=== PATIENT | male | born 1955 | race Caucasian/White ===

== ENCOUNTER 2018-12-28 17:50 | Observation (INO) ==
[2018-12-28 18:04] VITALS: BMI 31.6
--- NOTE | 2018-12-28 18:25 | CT ---
STUDY: CT HEAD WITHOUT CONTRAST HISTORY: Dizziness. Syncope. COMPARISON: None. TECHNIQUE: Multiple axial images of the head were obtained from the skull base to the vertex without administration of IV contrast. Automated exposure control (AEC) was utilized to adjust the MA and/or kV. Findings: The sulci, cisterns and ventricles are prominent consistent with diffuse volume loss. There are scattered foci of low attenuation in the periventricular and subcortical white matter of both hemispheres. This is a nonspecific finding which likely represents microangiopathic change in a patient of this age. There is no evidence of acute territorial infarction, hemorrhage, mass, mass effect or midline shift. There are no abnormal extra-axial fluid collections. There is no evidence of acute osseous abnormality or significant soft tissue swelling. There is right-sided aphakia. There has been a scleral banding procedure on the right. IMPRESSION: 1. No evidence of acute intracranial abnormality. 2. Nonspecific white matter change and volume loss as described. 3. If there is strong clinical concern for acute infarction, then an MRI examination of the brain could be performed for further evaluation. However, if there are no deficits on neurologic exam, there are no abnormalities identified on this study which require immediate imaging follow-up on an emergent basis. Follow-up MRI could be considered on an outpatient basis as clinically warranted. Reported By:
[2018-12-28 18:29] LABS: BASOPHILS % (AUTO) 0.6 % (0.2-1.0); EOSINOPHILS # (AUTO) 0.2 x10^3/uL (0.0-0.2); HEMATOCRIT 40.9 % (42.0-54.0); HEMOGLOBIN 14.2 g/dL (13.5-18.0); LYMPHOCYTES # (AUTO) 1.6 X10^3/uL (1.3-2.9); LYMPHOCYTES % (AUTO) 23.7 % (21.0-51.0); MEAN CORPUSCULAR HEMOGLOBIN 32.5 pg (27.0-34.0); MEAN CORPUSCULAR HGB CONC 34.7 g/dL (33.0-35.0); MEAN CORPUSCULAR VOLUME 93.4 fL (80.0-100.0); MEAN PLATELET VOLUME 8.3 fL (7.4-11.0); MONOCYTES # (AUTO) 0.6 x10^3/uL (0.3-0.8); MONOCYTES % (AUTO) 8.6 % (0.0-13.0); NEUTROPHILS # (AUTO) 4.4 x10^3/uL (2.2-4.8); NEUTROPHILS % (AUTO) 64.1 % (42.0-75.0); PLATELET COUNT 172 X10^3/uL (150.0-450.0); RED BLOOD COUNT 4.37 X10^6/uL (4.7-6.0); RED CELL DISTRIBUTION WIDTH 13.7 % (11.6-16.5); WHITE BLOOD COUNT 6.9 X10^3/uL (3.6-10.0)
--- NOTE | 2018-12-28 18:32 | DR.DIZZY ---
HPI Time seen Time Seen by Provider: 12/28/18 18:31 HPI Comment HPI Comment: PATIENT IS 63YR OLD MALE IN ED WITH DIZZINESS, VERTIGO AND NEAR SYNCOPAL FEELING THAT STARTED SUDDENLY AT HOME. PATIENT FELT SURROUNDING SPINNING AND FELT NAUSEATED. SYMPTOM WORDE WITH MOVEMENT. RELATIVES MOVE HIM TO THE CAR TO COME TO HOSPITAL. HE FELT HE WILL FALL IF HE TRY TO WALK. PATIENT DENIES FEVER, EAR OR SINUS SYMPTOMS. BP NOTED TO BE ELEVATED IN ED. SLIGH HEADACHE REPORTED. PATIENT IS DIAPHORETIC ON PRESENTATION TO ED. Complaint Chief Complaint Doctor Comments: DIZZY, BLACKED OUT AND ALMOST PASSING OUT. Chief Complaint:: PT C/O FEELING DIZZY AND ALMOST PASSING OUT PT STATES HE WAS LEANING BACK INTO HIS CHAIR AND HE BLACKED OUT. NOTED PT TO BE VERY DIAPHORETIC. Nurses Notes Reviewed Nurses Notes Review: Yes Source History Provided: Patient Mode of Arrival Mode of Arrival: Wheelchair Timing Onset of Chief Complaint: 12/28/18 Came on: Suddenly Duration Duration: Constant Duration: Hours Location of Weakness Weakness Location: Generalized Context Onset: At rest History of: None Stroke Symptoms: Ataxia and Dizziness Severity Severity: Abnormal activity level Modifying factors Worsens: Change in Position and Turning Head Associated signs and symptoms Associated Signs and Symptoms: Faintness, Near Syncope, Vertigo, Imbalance, Weak, Headache and Nausea; denies Tinnitus, Difficult Speech, Change of Vision, Fever and Vomiting PMH PMH Past Medical History: Yes Past Medical History: Coronary Artery Disease, Dyslipidemia and Hypertension Past Surgical History: Yes Family History History of Family Medical Conditions: No Social History Does any household member use tobacco: No Alcohol Use: None Do you use any recreational Drugs:: No Lives With: Family Lives Where: Home infectious screening In the last 2 months have you had wt loss of >10#?: NO Have you had fever, night sweats or hemotysis?: No Have you traveled outside the country in the last 6 months?: No Isolation: Standard ROS Review of Systems Constitutional: Diaphoresis, Weakness and Fatigue; negative Chills and Fever Eyes: Blurred Vision; negative Eye Pain, Tearing and Discharge ENTM: negative Ear Pain, Ear Discharge, Hearing Loss, Nose Pain, Nose Discharge, Epistaxis, Nose Congestion and Throat Pain Respiratoy: No Symptoms Reported and Short of Breath; negative Productive Cough, Wheezing and Hemoptysis Cardiovascular: Syncope; negative Chest Pain and Edema Gastrointestinal/Abdominal: Nausea; negative Abdominal Pain, Constipation, Diarrhea and Vomiting Genitourinary: No Symptoms Reported; negative Dysuria, Frequency and Hematuria Neurological: Headache, Weakness and Dizziness; negative Seizure Musculoskeletal: No Symptoms Reported; negative Back Pain, Joint Pain, Muscle Pain and Neck Pain Integumentary: No Symptoms Reported; negative Change in Color, Rash, Bruises and Juandice Hematologic/Lymphatic: No Symptoms Reported; negative Anemia, Easy Bleeding, Easy Bruising, Swollen Glands and Lymphadenopathy Endocrine: negative Flushing, Increased Thirst, Increased Urine and Decreased Appetite Psychiatric: No Symptoms Reported All Other Systems: Reviewed and Negative PE Vital Signs Vitals: Temperature 97.6 F Pulse Rate [Apical] 52 Pulse Rate 61 Respiratory Rate 23 Blood Pressure [Right Arm] 129/66 Blood Pressure [Left Arm] 168/92 Blood Pressure 154/72 O2 Sat by Pulse Oximetry 96 General Limitations: No Limitations General Appearance: Alert and In No Apparent Distress; negative In Distress Head Head Exam: Normal Inspection, Atraumatic and Normocephalic Eyes Eye exam: PERRL and EOMI; negative Scleral Icterus, Conjunctival Injection, Nystagmus, Periorbital Swelling and Periorbital Tenderness Pupils: Regular, Round: Bilateral and Reactive: Bilateral Sclera/Conjunctival: Normal Inspection: Bilateral ENT ENT Exam: Normal Exam, Normal Oropharynx, Normal External Ear Exam, Mucous Membranes Moist and TM's Normal Bilaterally Neck Neck Exam: Normal Inspection, Full ROM and Trachea Midline; negative Tenderness, Meningismus, Lymphadenopathy and Thyromegaly Chest Chest Inspection: Normal Inspection and Symmetric Chest Wall Rise; negative Tenderness and Rash Respiratory Respiratory Exam: Normal Lung Sounds Bilat; negative Accessory Muscle Use, Chest Wall Tenderness and Respiratory Distress Respiratory Exam: Bilateral: Rhonchi and Lower: Rhonchi Cardiovascular Cardiovascular Exam: Regular Rate and Normal Rhythm; negative Systolic Murmur, Diastolic Murmur, Rubs and Gallop Abdominal Exam Abdominal Exam: Normal Inspection, Normal Bowel Sounds and Soft; negative Tenderness, Organomegaly and Mass Rectal Rectal Exam: Deferred Extremeties Extremities Exam: Normal Inspection and Normal Capillary Refill; negative Tenderness, Edema, Joint Swelling and Calf Tenderness Back Back Exam: Normal Inspection; negative Tenderness, Muscle Spasm, Paraspinal Tenderness, Vertebral Tenderness and Rashes Neurologic Neurological Exam: Alert, Oriented X3 and CN II-XII Intact; negative Motor Sensory Deficit Patient Oriented To: Person, Place and Time Speech: Fluid Speech Cranial Nerve Exam: EOM Function (II, III, IV, ): Normal, Facial Sensation (V): Normal, Facial Palsy (VII): Normal, Gag reflex (XI): Normal, Spinal Accessory Function (XI): Normal and Tongue Deviation: Normal Cerebellar Function: negative Other (NOT TESTED AT THIS TIME.) Motor Strength - LUE: 5/5 Motor Strength - RUE: 5/5 Motor Strength - LLE: 5/5 Motor Strength - RLE: 5/5 Upper Motor Neuron Exam: Babinski Sign: Normal DTR: brachioradialis (L): 2+, brachioradialis (R): 2+, Patellar (L): 2+ and patellar (R): 2+ Psychiatric Psychiatric Exam: Normal Affect and Anxious Skin Skin Exam: Warm, Dry, Intact and Normal Color MDM Additional Information Obtained Additional Information Obtained From: Old Records and Family Differential Diagnosis Differential Diagnosis: Anemia, CVA, Dehydration, Dysrhythmia, Electrolyte disorder, Hypoglycemia, Labyrinthitis, Myocardial infarction, Pulmonary embolus, TIA, VBI and Central Vertigo COURSE Treatment Treatment: SEE ORDERS. Consultation Consultation Comments: DISCUSS PATIENT ILL WITH DR. MACIAS. HE WILL ADMIT PATIENT. PRELIMINARY ADMIT ORDERS DISCUSS AND HAVE DONE THE ORDERS. Education/Counseling Education/Counseling: Patient and Family Educated On: Diagnosis ROR Labs Reviewed Laboratory Results Reviewed?: Yes Result Diagrams: 12/29/18 05:37 12/29/18 05:37 Laboratory: WBC 5.4 X10^3/uL (3.6-10.0) 12/29/18 05:37 RBC 4.28 X10^6/uL (4.7-6.0) L 12/29/18 05:37 Hgb 13.9 g/dL (13.5-18.0) 12/29/18 05:37 Hct 40.2 % (42.0-54.0) L 12/29/18 05:37 MCV 93.8 fL (80.0-100.0) 12/29/18 05:37 MCH 32.6 pg (27.0-34.0) 12/29/18 05:37 MCHC 34.7 g/dL (33.0-35.0) 12/29/18 05:37 RDW 13.7 % (11.6-16.5) 12/29/18 05:37 Plt Count 165 X10^3/uL (150.0-450.0) 12/29/18 05:37 MPV 8.6 fL (7.4-11.0) 12/29/18 05:37 Neut % (Auto) 61.4 % (42.0-75.0) 12/29/18 05:37 Lymph % (Auto) 24.4 % (21.0-51.0) 12/29/18 05:37 Blair % (Auto) 10.7 % (0.0-13.0) 12/29/18 05:37 Eos % (Auto) 3.1 % (0.9-2.9) H 12/29/18 05:37 Baso % (Auto) 0.4 % (0.2-1.0) 12/29/18 05:37 Neut # (Auto) 3.3 x10^3/uL (2.2-4.8) 12/29/18 05:37 Lymph # (Auto) 1.3 X10^3/uL (1.3-2.9) 12/29/18 05:37 Blair # (Auto) 0.6 x10^3/uL (0.3-0.8) 12/29/18 05:37 Eos # (Auto) 0.2 x10^3/uL (0.0-0.2) 12/29/18 05:37 Baso # (Auto) 0.0 X10^3/uL (0.0-0.1) 12/29/18 05:37 Absolute Nucleated RBC 0.0 /100WBC 12/29/18 05:37 INR Target Range - 12/28/18 18:00 INR 0.98 (0.8-1.3) 12/28/18 18:00 APTT 30.6 SECONDS (22.9-36.5) 12/28/18 18:00 PTT Comment - 12/28/18 18:00 Sodium 141 mmol/L (136-145) 12/29/18 05:37 Corrected Sodium TNP 12/29/18 05:37 Potassium 3.6 mmol/L (3.5-5.1) 12/29/18 05:37 Chloride 106 mmol/L (98-107) 12/29/18 05:37 Carbon Dioxide 28.5 mmol/L (21-32) 12/29/18 05:37 BUN 11 mg/dL (7-18) 12/29/18 05:37 Creatinine 0.88 mg/dL (0.70-1.30) 12/29/18 05:37 Est GFR (MDRD) Af Amer > 60 (>60) 12/29/18 05:37 Est GFR (MDRD) Non-Af > 60 (>60) 12/29/18 05:37 Glucose 102 mg/dL (65-99) H 12/29/18 05:37 Calcium 8.7 mg/dL (8.5-10.1) 12/29/18 05:37 Corrected Calcium TNP 12/29/18 05:37 Magnesium 1.8 mg/dL (1.7-2.9) 12/29/18 05:37 Total Bilirubin 0.70 mg/dL (0.2-1.0) 12/29/18 05:37 AST 23 Units/L (15-37) 12/29/18 05:37 ALT 48 Units/L (12-78) 12/29/18 05:37 Alkaline Phosphatase 48 Units/L (46-116) 12/29/18 05:37 Creatine Kinase 142 Units/L (39-308) 12/28/18 18:00 CK-MB (CK-2) 4.3 ng/mL (0-4.0) H* 12/28/18 18:00 CK/CKMB % Calc 3.0 % (<4) 12/28/18 18:00 Troponin I < 0.02 ng/mL (0-1.5) 12/28/18 18:00 Total Protein 6.1 g/dL (6.4-8.2) L 12/29/18 05:37 Albumin 3.4 g/dL (3.4-5.0) 12/29/18 05:37 Globulin 2.7 g/dL (2.5-4.5) 12/29/18 05:37 Albumin/Globulin Ratio 1.3 Ratio (1.1-2.1) 12/29/18 05:37 Triglycerides 159 mg/dL (0-150) H 12/29/18 05:37 Cholesterol 121 mg/dL (0-200) 12/29/18 05:37 LDL Cholesterol, Calc 58 mg/dL (0-100) 12/29/18 05:37 HDL Cholesterol 31 mg/dL (40-60) L 12/29/18 05:37 Cholesterol/HDL Ratio 3.9 (0.0-5.0) 12/29/18 05:37 Specimen Type Random urine 12/29/18 07:56 Urine Color Yellow (YELLOW) 12/29/18 07:56 Urine Appearance Clear (CLEAR) 12/29/18 07:56 Urine pH 5.0 (5.0 - 8.0) 12/29/18 07:56 Ur Specific [place] 1.020 (1.000-1.030) 12/29/18 07:56 Urine Protein Negative (NEGATIVE) 12/29/18 07:56 Urine Glucose (UA) Negative (NEGATIVE) 12/29/18 07:56 Urine Ketones Negative (NEGATIVE) 12/29/18 07:56 Urine Occult Blood 1+ (NEGATIVE) 12/29/18 07:56 Urine Nitrite Negative (NEGATIVE) 12/29/18 07:56 Urine Bilirubin Negative (NEGATIVE) 12/29/18 07:56 Urine Urobilinogen Normal (NORMAL) 12/29/18 07:56 Ur Leukocyte Esterase Negative (NEGATIVE) 12/29/18 07:56 Urine RBC 0-2 /HPF (NONE SEEN) 12/29/18 07:56 Urine WBC 0-2 /HPF (NONE SEEN) 12/29/18 07:56 Ur Squamous Epith Cells Rare /HPF (NEGATIVE) 12/29/18 07:56 Urine Bacteria Negative /HPF (NEGATIVE) 12/29/18 07:56 Ur Culture Indicated? No/not indicated 12/29/18 07:56 XRAY XRAY Interpreted by: Radiologist XRAY Findings: REPORT ON RECORD NOTED. EKG Rate: 63 Mckenney: Normal Rhythm: NSR Block: None Hypertrophy: LVH ST: Normal Diagnosis Discharge Problem: Uncontrolled hypertension, Vertigo Instructions Instructions: Fall Prevention in the Home, Adult, Pqws-ic-Baya Stroke Prevention Vertigo, Ltod-[id number] Warning Signs of a Stroke Hypertension, [id number] Dizziness, [id number]-[id number] Managing Your Hypertension Forms: Patient Portal
[2018-12-28 18:43] LABS: BLOOD UREA NITROGEN 13 mg/dL (7-18); CALCIUM 9.1 mg/dL (8.5-10.1); CARBON DIOXIDE 25.6 mmol/L (21-32); CHLORIDE 105 mmol/L (98-107); COR NA(FOR HYPERGLY) 140 mmol/L (136-145); CREATININE 0.91 mg/dL (0.70-1.30); SODIUM 140 mmol/L (136-145); TROPONIN I < 0.02 ng/mL (0-1.5); eGFR NON BLACK RACES > 60 (>60)
[2018-12-28] MEDS ORDERED: CATAPRES TAB 0.2 MG PO ONE (18:57)
[2018-12-28] MEDS ORDERED: ANTIVERT TAB 25 MG PO ONE (18:59)
[2018-12-28 19:06] LABS: ALANINE AMINOTRANSFERASE 55 Units/L (12-78); ALBUMIN 3.9 g/dL (3.4-5.0); ALKALINE PHOSPHATASE 54 Units/L (46-116); ASPARTATE AMINO TRANSFERASE 26 Units/L (15-37); CREATINE KINASE 142 Units/L (39-308)
[2018-12-28 19:07] LABS: CREATINE KINASE MB 4.3 ng/mL (0-4.0)
[2018-12-28] MEDS ORDERED: ANTIVERT TAB 25 MG ONE (19:33)
[2018-12-28] MEDS ORDERED: AMBIEN PO PRN (22:19)
[2018-12-28] MEDS: ULTRAM PO PRN (23:03)
[2018-12-29] MEDS: ULTRAM PO PRN (04:16)
[2018-12-29 06:25] LABS: BASOPHILS % (AUTO) 0.4 % (0.2-1.0); EOSINOPHILS # (AUTO) 0.2 x10^3/uL (0.0-0.2); EOSINOPHILS % (AUTO) 3.1 % (0.9-2.9); HEMATOCRIT 40.2 % (42.0-54.0); HEMOGLOBIN 13.9 g/dL (13.5-18.0); LYMPHOCYTES # (AUTO) 1.3 X10^3/uL (1.3-2.9); LYMPHOCYTES % (AUTO) 24.4 % (21.0-51.0); MEAN CORPUSCULAR HEMOGLOBIN 32.6 pg (27.0-34.0); MEAN CORPUSCULAR HGB CONC 34.7 g/dL (33.0-35.0); MEAN CORPUSCULAR VOLUME 93.8 fL (80.0-100.0); MEAN PLATELET VOLUME 8.6 fL (7.4-11.0); MONOCYTES # (AUTO) 0.6 x10^3/uL (0.3-0.8); MONOCYTES % (AUTO) 10.7 % (0.0-13.0); NEUTROPHILS # (AUTO) 3.3 x10^3/uL (2.2-4.8); NEUTROPHILS % (AUTO) 61.4 % (42.0-75.0); PLATELET COUNT 165 X10^3/uL (150.0-450.0); RED BLOOD COUNT 4.28 X10^6/uL (4.7-6.0); RED CELL DISTRIBUTION WIDTH 13.7 % (11.6-16.5); WHITE BLOOD COUNT 5.4 X10^3/uL (3.6-10.0)
[2018-12-29 06:55] LABS: ALANINE AMINOTRANSFERASE 48 Units/L (12-78); ALBUMIN 3.4 g/dL (3.4-5.0); ALKALINE PHOSPHATASE 48 Units/L (46-116); ASPARTATE AMINO TRANSFERASE 23 Units/L (15-37); BLOOD UREA NITROGEN 11 mg/dL (7-18); CALCIUM 8.7 mg/dL (8.5-10.1); CARBON DIOXIDE 28.5 mmol/L (21-32); CHLORIDE 106 mmol/L (98-107); CHOL/HDL RATIO 3.9 (0.0-5.0); CHOLESTEROL 121 mg/dL (0-200); CREATININE 0.88 mg/dL (0.70-1.30); HDL CHOLESTEROL 31 mg/dL (40-60); SODIUM 141 mmol/L (136-145); TOTAL PROTEIN 6.1 g/dL (6.4-8.2); TRIGLYCERIDES 159 mg/dL (0-150); eGFR NON BLACK RACES > 60 (>60)
[2018-12-29 08:10] LABS: BILIRUBIN,URINE NEGATIVE (NEGATIVE); BLOOD/HEMOGLOBIN,URINE 1+ (NEGATIVE); GLUCOSE, URINE NEGATIVE (NEGATIVE); KETONES,URINE NEGATIVE (NEGATIVE); LEUKOCYTE ESTERASE ,URINE NEGATIVE (NEGATIVE); NITRITES,URINE NEGATIVE (NEGATIVE); PROTEIN,URINE NEGATIVE (NEGATIVE); UROBILINOGEN,URINE NORMAL (NORMAL)
[2018-12-29 08:21] LABS: APPEARANCE,URINE CLEAR (CLEAR); COLOR,URINE YELLOW (YELLOW); RBC,URINE 0-2 /HPF (NONE SEEN)
[2018-12-29 08:22] LABS: BACTERIA,URINE NEGATIVE /HPF (NEGATIVE); SQUAMOUS EPITHELIAL CELL,UR RARE /HPF (NEGATIVE)
[2018-12-29] MEDS ORDERED: APRESOLINE TAB 25 MG PO SCH (10:00)
[2018-12-29] MEDS ORDERED: PriLOSEC PO SCH (10:00)
[2018-12-29] MEDS ORDERED: ZyrTEC TAB 10 MG PO SCH (10:00)
[2018-12-29] MEDS ORDERED: HYDROCHLOROTHIAZIDE 25 MG TAB PO SCH (10:00)
[2018-12-29] MEDS: ZESTRIL TAB 40 MG PO SCH ×2 (10:43→13:22)
[2018-12-29] MEDS ORDERED: ASPIRIN EC 81 MG PO SCH (11:00)
--- NOTE | 2018-12-29 13:17 | MRI ---
MRI BRAIN WITHOUT AND WITH CONTRAST CLINICAL HISTORY: 63-year-old male with vertigo and uncontrolled hypertension with headache, blurred vision and dizziness. COMPARISON: CT head 12/28/2018. TECHNIQUE: Multiplanar, multisequence MR images of the brain were obtained prior to and following the uneventful intravenous administration of 20 mL MultiHance. FINDINGS: There is no evidence of diffusion restriction. The craniocervical junction is normal. Pituitary and optic nerve complex are normal. Few punctate T2 FLAIR signal hyperintensities are present within the subcortical, juxtacortical, periventricular and supraventricular white matter that are nonspecific in appearance but most likely to represent microvascular white matter ischemic changes. Normal signal characteristics and morphology are demonstrated within the cerebral cortex, corpus callosum, deep chanel nuclei, brainstem and cerebellum. The major vascular channels opacify normally and the major vascular flow voids, to include the dural venous sinuses, are intact. No abnormal susceptibility on gradient imaging. Age advanced cortical volume loss is present, with commensurate sulcal and ventricular prominence. The basilar cisterns are normal. There is no evidence of abnormal intracranial enhancement. Right scleral band and aphakic right globe. The orbits and globes are otherwise within normal limits. Complete proteinaceous opacification of the left maxillary sinus with medial calcified secretions. Mucosal inflammation of the left maxillary sinus and scattered throughout the ethmoid labyrinth, left greater than right with the remaining paranasal sinuses, mastoid air cells and tympanic cavities clear. IMPRESSION: 1. No acute ischemic or hemorrhagic insult. 2. No abnormal intracranial enhancement. 3. Mild, chronic microvascular white matter ischemic disease with associated volume loss. 4. Chronic left maxillary sinusitis as described, recommend outpatient evaluation by Otolaryngology. Reported By:
[2018-12-29] MEDS ORDERED: K-DUR TAB 20 MEQ PO PRN (13:23)
[2018-12-29] MEDS ORDERED: POTASSIUM CHL 60 MEQ/NS 0.45% 500 ML IV PRN (13:23)
[2018-12-29] MEDS ORDERED: POTASSIUM CHL 40 MEQ/NS 0.45% 500 ML IV PRN (13:23)
[2018-12-29] MEDS ORDERED: POTASSIUM CHLORIDE LIQ 20 MEQ UDC PO PRN (13:23)
[2018-12-29] MEDS ORDERED: KLOR-CON PO PRN (13:23)
[2018-12-29] MEDS ORDERED: K-RIDER 10 MEQ/NS 100 ML 10 MEQ/100 ML BAG IV PRN (13:23)
[2018-12-29] MEDS ORDERED: MICRO K EXTEN CAP 10 MEQ PO PRN (13:23)
[2018-12-29 14:32] VITALS: BP 154/72
[2018-12-29] MEDS ORDERED: ZOCOR TAB 20 MG PO SCH (21:00)
[2018-12-29] MEDS ORDERED: TOPROL XL PO SCH (21:00)
--- NOTE | 2019-01-14 10:17 | DR.CARTERS ---
Short Stay Summary - Admission Date Date of Admission: 12/28/18 - Discharge Date Discharge Date: 12/29/18 - Admission Diagnoses (1) Uncontrolled hypertension Status: Acute (2) Vertigo Status: Acute - Hospital Course Hospital Course: IS A 63 YEAR OLD PATIENT OF OURS WHO PRESENTED TO THE ER WITH COMPLAINTS OF DIZZINESS AND NEAR SYNCOPE. HE REPORTED THAT SYMPTOMS STARTED EARLY IN THE MORNING. HE ALSO REPORTED SEVERE WEAKNESS WHEN AMBULATING AND HEADACHE. HE WAS NOTED TO BE DIAPHORETIC ON PRESENTATION TO THE ER. ON ARRIVAL, VITALS WERE 98.0-63-20-98%-221/99. LABS WERE OBTAINED. ABNORMAL LAB VALUES INCLUDED THE FOLLOWING: RBC 4.37, HCT 40.9, GLUCOSE 111, CK-MB 4.3. EKG REVEALED: SINUS RHYTHM WITH HR 63. A BRAIN CT WAS OBTAINED AND REVEALED: No evidence of acute intracranial abnormality. Nonspecific white matter change and volume loss as described. If there is strong clinical concern for acute infarction, then an MRI examination of the brain could be performed for further evaluation. However, if there are no deficits on neurologic exam, there are no abnormalities identified on this study which require immediate imaging follow-up on an emergent basis. HE WAS GIVEN ANTIVERT 25MG PO X 1 AND CLONIDINE 0.2MG PO X 1 IN THE ER. HIS BLOOD PRESSURE WAS NOTED TO DECREASE TO 174/85. HE WAS ADMITTED FOR FURTHER EVALUATION AND TREATMENT OF VERTIGO AND UNCONTROLLED HYPERTENSION. WE PLANNED TO FOLLOW UP WITH AM LABS AND BRAIN MRI. ON THE MORNING FOLLOWING ADMISSION, PATIENT REPORTS SLIGHT IMPROVEMENT IN SYMPTOMS. HE REPORTS THAT HE STILL HAS SOME DIZZINESS AT TIMES. HIS HEARTRATE WAS NOTED TO FALL INTO THE 40S AT TIMES DURING THE NIGHT. ON EXAMINATION, HEART IS REGULAR IN RATE AND RHYTHM. BILATERAL LUNGS ARE NOTED WITH DIMINISHED LUNG SOUNDS THROUGHOUT. ABDOMEN IS ROUND, SOFT, AND NON-TENDER WITH NORMAL BOWEL SOUNDS NOTED IN ALL QUADRANTS. HE IS HEMODYNAMICALLY STABLE. WE OBTAINED A BRAIN MRI. IT REVEALED: No acute ischemic or hemorrhagic insult. No abnormal intracranial enhancement. Mild, chronic microvascular white matter ischemic disease with associated volume loss. Chronic left maxillary sinusitis as described, recommend outpatient evaluation by Otolaryngology. WE PLANNED FOR DISCHARGE. INSTRUCTIONS FOR MEDICATIONS AND FOLLOW-UP WERE DISCUSSED WITH PATIENT AND FAMILY. WE INSTRUCTED PATIENT TO STOP TAKING THE METOPROLOL UNTIL HIS FOLLOW-UP VISIT. HE WAS GIVEN NEW PRESCRIPTIONS FOR MECLIZINE 25MG PO BID AND A MEDROL DOSE PACK. HE IS INSTRUCTED TO FOLLOW UP IN THE OFFICE ON 01/04/19. HE WAS DISCHARGED HOME WITH FAMILY IN STABLE CONDITION. - Discharge Medications Discharge Medications: Home Medication List hydralazine 50 mg PO BID 12/28/18 [History] hydrochlorothiazide 25 mg PO DAILY 12/28/18 [History] omeprazole 40 mg PO DAILY 12/28/18 [History] meclizine 25 mg PO BID PRN #60 tab 12/29/18 [Rx] methylprednisolone [Medrol (Jase)] See Rx Instructions .ROUTE .COMPLEX #1 ea 12/29/18 [Rx] Prescriptions: meclizine Duane Valenzuela methylprednisolone [Medrol (Jase)] Duane Valenzuela - Discharge Plan Disposition: HOME, SELF-CARE Condition: Stable Prescriptions: meclizine 25 mg PO BID PRN #60 tab PRN Reason: methylprednisolone [Medrol (Jase)] See Rx Instructions .ROUTE .COMPLEX #1 ea - Follow up/Referrals Follow up/Referrals: Duane Valenzuela [Primary Care Provider] - 01/04/19 1:30 pm - Instructions Instructions: Fall Prevention in the Home, Adult, [id number], Stroke Preve ntion, Vertigo, [id number], Warning Signs of a Stroke, Hypertension, [id number]-[id number], Dizziness, Ophk-[id number], Managing Your Hypertension Additional Instructions: DIET TOLERATED. ACTIVITY TOLERATED. HOLD METOPROLOL UNTIL FOLLOW-UP VISIT Forms: Patient Portal
== END 2018-12-29 14:50 | disposition home or self-care (01) ==
LOC: ER 17:52 → ICU 17:52
PROVIDERS: ADMIT Internal Medicine; ATTEND Internal Medicine
DX: E78.2 Mixed hyperlipidemia; R55 Syncope and collapse; I10 Essential (primary) hypertension; Z79.01 Long term (current) use of anticoagulants; R42 Dizziness and giddiness; Z79.899 Other long term (current) drug therapy; R51 Headache; R94.31 Abnormal electrocardiogram [ECG] [EKG]; I25.10 Atherosclerotic heart disease of native coronary artery without angina pectoris; J32.0 Chronic maxillary sinusitis; R53.1 Weakness
CPT/HCPCS: 36415; 70450; 70553; 80053; 80061; 81001; 82550; 82553; 83735; 84484; 85025; 85610; 85730; 93005; 96365; 99284; A4222; G0378

== ENCOUNTER 2020-08-26 11:21 | Inpatient (IN) ==
[2020-08-26 11:32] VITALS: BMI 31.0
--- NOTE | 2020-08-26 11:46 | DR.SOBA ---
HPI Time Seen Time Seen by Provider: 08/26/20 11:32 Primary Care Physician Primary Care Physician: COLLEEN HPI Comment HPI Comment: PATIENT IS 65YR OLD MALE IS IN ER WITH INCREASING SOB, GENERALIZED WEAKNESS, COUGH AND OXYGEN SATURATION 84% IN ER. PATIENT IS COVID 19 POSITIVE. HIS ILLNESS STARTED ONE WEEK AGO AND IS GETTING WORSE. DENIES FEVER. HAVING PLEURITIC CHEST PAIN. Complaints Chief Complaint Doctors Comments: INCREASING SOB, COUGH. OXYGEN SATURATION 84% IN ER AND COVID 19 VIRUS POSITIVE. Chief Complaint:: PT C/O BEING COVID POSITIVE WITH SYMPTOMS OF SEVERE COUGH, SHORTNESS OF BREATH, AND WEAKNESS. NOTED PT TO BE EXTREMELY SHORT OF BREATH UPON AMBULATING TO TRIAGE ROOM. SPO2 NOTED TO BE 84% ON R/A COVID-19 Coronavirus risk:travel/contact w/high risk person: Yes Has patient experienced Coronavirus symptoms: Yes Coronavirus symptoms experienced: Coughing and Shortness of Breath Reviewed Nurses Notes Reviewed: Yes Source History Provided: Patient Mode of Arrival Mode of Arrival: Ambulatory Timing Onset of Chief Complaint: 08/19/20 Duration Duration: Days Context Onset:: At Rest PE Risk Factors:: None History of:: CHF Currently on:: Inhaled Bronchodilators Prehospital Care:: None Modifying Factors Worsens:: Exertion and Lying Flat Improves:: Rest and Sitting Up Associated Signs and Symptoms Associated Signs and Symptoms: Wheeze, Cough and Chest Pain If Chest Pain Quality: Pleuritic Location: Substernal If Cough Cough: Productive and Yellow PMH PMH Past Medical History: Yes Past Medical History: Coronary Artery Disease, Dyslipidemia and Hypertension Past Surgical History: Yes Surgical History: Cholecystectomy Past Surgical History Comment: COLON , EYE, BLADDER, ANKLE Family History History of Family Medical Conditions: Yes Family Medical History: Sudden Cardiac Social History Does any household member use tobacco: No Alcohol Use: None Do you use any recreational Drugs:: No Lives With: Family Lives Where: Home Travel Risk Coronavirus risk:travel/contact w/high risk person: Yes Has patient experienced Coronavirus symptoms: Yes Coronavirus symptoms experienced: Coughing and Shortness of Breath Infectious screening In the last 2 months have you had wt loss of >10#?: NO Have you had fever, night sweats or hemotysis?: No Have you traveled outside the country in the last 6 months?: No Isolation: Droplet ROS Review of Systems Constitutional: See HPI, Weakness and Fatigue; negative Fever Eyes: No Symptoms Reported and See HPI ENTM: See HPI and Nose Congestion; negative Nose Discharge Respiratoy: See HPI, Productive Cough, Short of Breath and Wheezing Cardiovascular: See HPI and Chest Pain (PLEURITIC CP); negative Edema and Palpitations Gastrointestinal/Abdominal: No Symptoms Reported and See HPI; negative Abdominal Pain, Diarrhea and Vomiting Genitourinary: No Symptoms Reported and See HPI; negative Dysuria, Frequency and Hematuria Neurological: See HPI and Weakness; negative Headache and Dizziness Musculoskeletal: See HPI and Muscle Pain; negative Back Pain Integumentary: No Symptoms Reported and See HPI; negative Rash and Juandice Hematologic/Lymphatic: No Symptoms Reported and See HPI; negative Easy Bruising and Swollen Glands Endocrine: No Symptoms Reported and See HPI; negative Increased Thirst and Increased Urine Psychiatric: No Symptoms Reported and See HPI All Other Systems: Reviewed and Negative PE Vital Signs Vitals: Temperature 98.2 F Pulse Rate 84 Respiratory Rate 30 Blood Pressure [Right Arm] 129/66 Blood Pressure [Left Arm] 168/92 Blood Pressure 137/76 O2 Sat by Pulse Oximetry 94 General Limitations: No Limitations General Appearance: Alert and In No Apparent Distress Head Head Exam: Normal Inspection and Atraumatic Eyes Eye exam: Normal Appearance, PERRL and EOMI; negative Scleral Icterus and Conjunctival Injection ENT ENT Exam: Normal External Ear Exam; negative Normal Oropharynx and TM's Normal Bilaterally Neck Neck Exam: Normal Inspection and Trachea Midline; negative Tenderness and Lymphadenopathy Chest Chest Inspection: Normal Inspection and Symmetric Chest Wall Rise; negative Tenderness Respiratory Respiratory Exam: Respiratory Distress; negative Accessory Muscle Use and Chest Wall Tenderness Respiratory Exam: Bilateral: Wheezing and Bilateral: Rhonchi, Upper: Wheezing and Lower: Wheezing and Lower: Rhonchi Cardiovascular Cardiovascular Exam: Regular Rate, Normal Rhythm and Normal Heart Sounds; negative Systolic Murmur and Diastolic Murmur Abdominal Exam Abdominal Exam: Normal Inspection, Normal Bowel Sounds and Soft; negative Tenderness Extremities Extremities Exam: Normal Inspection and Tenderness; negative Normal Capillary Refill and Joint Swelling Back Back Exam: Normal Inspection; negative (R) CVA Tenderness and (L) CVA Tenderness Neurologic Neurological Exam: Alert, Oriented X3 and CN II-XII Intact; negative Motor Sensory Deficit Psychiatric Psychiatric Exam: Normal Affect and Normal Mood Skin Skin Exam: Warm, Dry, Intact and Normal Color MDM Additional Information Obtained Additional Information Obtained From: Old Records Differential Diagnosis Differential Diagnosis: CHF, COPD, Dysrhythmia, Hyponatremia, Mycardial Infarction, Pneumonia, Pneumothorax, Respiratory Insufficiency and URI COURSE Treatment Treatment: SEE ORDERS. RPHIN 1GM IVPB, LASIX 2HG IV. Consultation Consultation Comments: DISCUEEDE PATIENT DR. RUFF, HE WILL ADMIT TOGETHER. Education/Counseling Education/Counseling: Patient Educated On: Diagnosis ROR Labs Reviewed Laboratory Results Reviewed?: Yes Result Diagrams: 09/08/20 04:15 09/08/20 04:15 Laboratory: 08/26/20 12:40 Blood Blood Culture - Final 08/26/20 11:40 Blood Blood Culture - Final WBC 4.1 X10^3/uL (3.6-10.0) 08/26/20 11:40 RBC 4.39 X10^6/uL (4.7-6.0) L 08/26/20 11:40 Hgb 14.2 g/dL (13.5-18.0) 08/26/20 11:40 Hct 40.8 % (42.0-54.0) L 08/26/20 11:40 MCV 92.9 fL (80.0-100.0) 08/26/20 11:40 MCH 32.3 pg (27.0-34.0) 08/26/20 11:40 MCHC 34.8 g/dL (33.0-35.0) 08/26/20 11:40 RDW 13.1 % (11.6-16.5) 08/26/20 11:40 Plt Count 156 X10^3/uL (150.0-450.0) 08/26/20 11:40 MPV 7.6 fL (7.4-11.0) 08/26/20 11:40 Neut % (Auto) 71.1 % (42.0-75.0) 08/26/20 11:40 Lymph % (Auto) 16.3 % (21.0-51.0) L 08/26/20 11:40 Mineral % (Auto) 12.2 % (0.0-13.0) 08/26/20 11:40 Eos % (Auto) 0.0 % (0.9-2.9) L 08/26/20 11:40 Baso % (Auto) 0.4 % (0.2-1.0) 08/26/20 11:40 Neut # (Auto) 2.9 x10^3/uL (2.2-4.8) 08/26/20 11:40 Lymph # (Auto) 0.7 X10^3/uL (1.3-2.9) L 08/26/20 11:40 Mineral # (Auto) 0.5 x10^3/uL (0.3-0.8) 08/26/20 11:40 Eos # (Auto) 0.0 x10^3/uL (0.0-0.2) 08/26/20 11:40 Baso # (Auto) 0.0 X10^3/uL (0.0-0.1) 08/26/20 11:40 Absolute Nucleated RBC 0.1 /100WBC 08/26/20 11:40 Sample Site Rr 08/26/20 11:55 ABG pH 7.530 (7.35-7.45) H 08/26/20 11:55 ABG pCO2 27.0 mmHg (35.0-45.0) L 08/26/20 11:55 ABG pO2 56.0 mmHg (80.0-100.0) L 08/26/20 11:55 ABG HCO3 22.6 mmol/L (22-26) 08/26/20 11:55 ABG O2 Saturation 92.0 % (90-100) 08/26/20 11:55 ABG Base Excess 0.9 mmol/L (-2.0-2.0) 08/26/20 11:55 Farzad Test Pos 08/26/20 11:55 A-a Gradient 60.0 mmHg 08/26/20 11:55 FiO2 21.0 08/26/20 11:55 Blood Gas Comments Ulises well cb 08/26/20 11:55 Sodium 131 mmol/L (136-145) L 08/26/20 11:40 Corrected Sodium 132 mmol/L (136-145) L 08/26/20 11:40 Potassium 3.7 mmol/L (3.5-5.1) 08/26/20 11:40 Chloride 97 mmol/L (98-107) L 08/26/20 11:40 Carbon Dioxide 23.0 mmol/L (21-32) 08/26/20 11:40 BUN 20 mg/dL (7-18) H 08/26/20 11:40 Creatinine 1.03 mg/dL (0.70-1.30) 08/26/20 11:40 Est GFR (MDRD) Af Amer > 60 (>60) 08/26/20 11:40 Est GFR (MDRD) Non-Af > 60 (>60) 08/26/20 11:40 Glucose 142 mg/dL (65-99) H 08/26/20 11:40 Lactic Acid 1.6 mmol/L (0.4-2.0) 08/26/20 11:40 Calcium 8.8 mg/dL (8.5-10.1) 08/26/20 11:40 Corrected Calcium 9.4 mg/dL (8.5-10.1) 08/26/20 11:40 Magnesium 2.1 mg/dL (1.7-2.9) 08/26/20 11:40 Ferritin 677 ng/mL (26-388) H 08/26/20 11:40 Total Bilirubin 0.60 mg/dL (0.2-1.0) 08/26/20 11:40 AST 51 Units/L (15-37) H 08/26/20 11:40 ALT 67 Units/L (12-78) 08/26/20 11:40 Alkaline Phosphatase 42 Units/L (46-116) L 08/26/20 11:40 C-Reactive Protein 78.70 mg/L (0-3.0) H 08/26/20 11:40 B-Natriuretic Peptide 12.8 pg/mL (0-79) 08/26/20 11:40 Total Protein 7.0 g/dL (6.4-8.2) 08/26/20 11:40 Albumin 3.2 g/dL (3.4-5.0) L 08/26/20 11:40 Globulin 3.8 g/dL (2.5-4.5) 08/26/20 11:40 Albumin/Globulin Ratio 0.8 Ratio (1.1-2.1) L 08/26/20 11:40 XRAY XRAY Interpreted by: Radiologist (REPORT NOTED AND DISCUSSED WITH PATIENT.) and Self Opioid Opioid Risk Tool Age (Tuan box if 16-45): No History of Preadolescent Sexual Abuse: No Total: 0 Total Score Risk Category: Low Risk Copyright: Dylan MARTINEZ predicting aberrant behaviors Diagnosis Discharge Problem: Acute respiratory distress Pneumonia Qualifiers: Pneumonia type: due to unspecified organism Laterality: bilateral Lung location: lower lobe of lung Qualified Code(s): J18.9 - Pneumonia, unspecified organism CHF (congestive heart failure) Qualifiers: Heart failure type: combined systolic and diastolic Heart failure chronicity: acute on chronic Qualified Code(s): I50.43 - Acute on chronic combined systolic (congestive) and diastolic (congestive) heart failure Instructions Instructions: Viral Respiratory Infection, Flra-Ut-Ioxo Home Oxygen Use, Adult Hand Washing, Flhe-eo-Xmpj Hypoxia Droplet Precautions, Qghf-dv-Oxju Contact Precautions, Ntuq-vx-Jzwj How to Use a Nebulizer, Adult Hypertension, Qqvs-mb-Rxjq Heart Failure, Cmmb-nq-Poqq Community-Acquired Pneumonia, Adult, Naps-yp-Rncl Forms: EUA Consent Convalescent Plasma Precautions for COVID19 Patient Portal Social Distancing
[2020-08-26 12:00] LABS: ABG BASE EXCESS 0.9 mmol/L (-2.0-2.0); ABG HCO3 22.6 mmol/L (22-26)
[2020-08-26 12:01] LABS: ABG ALLEN TEST POS
[2020-08-26 12:21] LABS: BASOPHILS % (AUTO) 0.4 % (0.2-1.0); HEMATOCRIT 40.8 % (42.0-54.0); HEMOGLOBIN 14.2 g/dL (13.5-18.0); LYMPHOCYTES # (AUTO) 0.7 X10^3/uL (1.3-2.9); LYMPHOCYTES % (AUTO) 16.3 % (21.0-51.0); MEAN CORPUSCULAR HEMOGLOBIN 32.3 pg (27.0-34.0); MEAN CORPUSCULAR HGB CONC 34.8 g/dL (33.0-35.0); MEAN CORPUSCULAR VOLUME 92.9 fL (80.0-100.0); MEAN PLATELET VOLUME 7.6 fL (7.4-11.0); MONOCYTES # (AUTO) 0.5 x10^3/uL (0.3-0.8); MONOCYTES % (AUTO) 12.2 % (0.0-13.0); NEUTROPHILS # (AUTO) 2.9 x10^3/uL (2.2-4.8); NEUTROPHILS % (AUTO) 71.1 % (42.0-75.0); PLATELET COUNT 156 X10^3/uL (150.0-450.0); RED BLOOD COUNT 4.39 X10^6/uL (4.7-6.0); RED CELL DISTRIBUTION WIDTH 13.1 % (11.6-16.5); WHITE BLOOD COUNT 4.1 X10^3/uL (3.6-10.0)
[2020-08-26 12:28] LABS: ALANINE AMINOTRANSFERASE 67 Units/L (12-78); ALBUMIN 3.2 g/dL (3.4-5.0); ALKALINE PHOSPHATASE 42 Units/L (46-116); ASPARTATE AMINO TRANSFERASE 51 Units/L (15-37); BLOOD UREA NITROGEN 20 mg/dL (7-18); CALCIUM 8.8 mg/dL (8.5-10.1); CHLORIDE 97 mmol/L (98-107); COR CA(FOR HYPOALB) 9.4 mg/dL (8.5-10.1); COR NA(FOR HYPERGLY) 132 mmol/L (136-145); CREATININE 1.03 mg/dL (0.70-1.30); SODIUM 131 mmol/L (136-145); eGFR NON BLACK RACES > 60 (>60)
[2020-08-26 12:50] LABS: LACTIC ACID 1.6 mmol/L (0.4-2.0)
--- NOTE | 2020-08-26 12:59 | RAD ---
HISTORYPT C/O BEING COVID POSITIVE WITH SYMPTOMS OF SEVERE COUGH, SHORTNESS OF BREATH, AND WEAKNESS.STUDYCHEST, 1 VIEWCOMPARISONNoneFINDINGSThe trachea is midline. The cardiac silhouette is enlarged with prominent perihilar vasculature, cephalization of vessels, diffuse alveolar/interstitial markings. Question of a small left pleural effusion.. No obvious pneumothorax. The bony thorax is unremarkable.IMPRESSIONConstellation of findings which may represent pulmonary edema secondary to congestive heart failure. Underlying infiltrate not entirely excluded. Recommend clinical/laboratory correlation.Electronically signed by: MADELYN TOMLINSON (Aug 26, 2020 12:57:44)
[2020-08-26] MEDS ORDERED: LASIX IVP ONE (14:41)
[2020-08-26] MEDS ORDERED: ROCEPHIN 1 GRAM IV PREMIX 1 G/50 ML IV.SOLN. IV ONE ×2 (14:42→15:05)
[2020-08-26] MEDS ORDERED: NS 1000 ML 1,000 ML ONE (15:05)
[2020-08-26] MEDS ORDERED: LASIX ONE (15:06)
[2020-08-26] MEDS: NS 1000 ML 1,000 ML IV SCH (15:27)
[2020-08-26] MEDS ORDERED: DUONEB 0.5 MG/3 MG (3 mL) NEB ONE (16:21)
[2020-08-26] MEDS: DUONEB 0.5 MG/3 MG (3 mL) NEB SCH ×2 (17:15→21:19)
[2020-08-26] MEDS ORDERED: K-DUR TAB 20 MEQ PO PRN (19:53)
[2020-08-26] MEDS ORDERED: POTASSIUM CHL 40 MEQ/NS 0.45% 500 ML IV PRN (19:53)
[2020-08-26] MEDS ORDERED: MICRO K EXTEN CAP 10 MEQ PO PRN (19:53)
[2020-08-26] MEDS ORDERED: POTASSIUM CHL 60 MEQ/NS 0.45% 500 ML IV PRN (19:53)
[2020-08-26] MEDS ORDERED: KLOR-CON PO PRN (19:53)
[2020-08-26] MEDS ORDERED: POTASSIUM CHLORIDE LIQ 20 MEQ UDC PO PRN (19:53)
[2020-08-26] MEDS ORDERED: K-RIDER 10 MEQ/NS 100 ML 10 MEQ/100 ML BAG IV PRN (19:53)
[2020-08-26] MEDS ORDERED: PULMICORT NEB TX 0.5 MG NEB SCH (21:00)
[2020-08-26] MEDS ORDERED: ZOSYN VIAL 3.375 GRAMS 3.375 G in NS 100 ML IV + SPIKE MINIBAG* 100 ML IV SCH (22:50)
[2020-08-26] MEDS ORDERED: REMDESIVIR 200 MG in NS 250 ML IV 250 ML IV SCH (23:30)
[2020-08-27] MEDS: ASCORBIC ACID INJ MULTI-DOSE VIAL 1,500 MG in NS 100 ML IV 100 ML IV SCH ×3 (01:00→08:59)
[2020-08-27] MEDS: ZOSYN VIAL 3.375 GRAMS 3.375 G in NS 100 ML IV + SPIKE MINIBAG* 100 ML IV SCH ×4 (01:30→22:16)
[2020-08-27 05:43] LABS: BASOPHILS % (AUTO) 0.2 % (0.2-1.0); HEMATOCRIT 37.8 % (42.0-54.0); HEMOGLOBIN 13.1 g/dL (13.5-18.0); LYMPHOCYTES # (AUTO) 0.7 X10^3/uL (1.3-2.9); LYMPHOCYTES % (AUTO) 20.3 % (21.0-51.0); MEAN CORPUSCULAR HEMOGLOBIN 32.3 pg (27.0-34.0); MEAN CORPUSCULAR HGB CONC 34.7 g/dL (33.0-35.0); MEAN CORPUSCULAR VOLUME 93.2 fL (80.0-100.0); MONOCYTES # (AUTO) 0.6 x10^3/uL (0.3-0.8); MONOCYTES % (AUTO) 15.8 % (0.0-13.0); NEUTROPHILS # (AUTO) 2.3 x10^3/uL (2.2-4.8); NEUTROPHILS % (AUTO) 63.7 % (42.0-75.0); PLATELET COUNT 157 X10^3/uL (150.0-450.0); RED BLOOD COUNT 4.06 X10^6/uL (4.7-6.0); RED CELL DISTRIBUTION WIDTH 13.2 % (11.6-16.5); WHITE BLOOD COUNT 3.6 X10^3/uL (3.6-10.0)
[2020-08-27 06:04] LABS: ALANINE AMINOTRANSFERASE 58 Units/L (12-78); ALBUMIN 2.7 g/dL (3.4-5.0); ALKALINE PHOSPHATASE 37 Units/L (46-116); ASPARTATE AMINO TRANSFERASE 46 Units/L (15-37); BLOOD UREA NITROGEN 20 mg/dL (7-18); CALCIUM 8.5 mg/dL (8.5-10.1); CARBON DIOXIDE 22.4 mmol/L (21-32); CHLORIDE 97 mmol/L (98-107); CKMB % 0.5 % (<4); COR CA(FOR HYPOALB) 9.5 mg/dL (8.5-10.1); COR NA(FOR HYPERGLY) 132 mmol/L (136-145); CREATINE KINASE 215 Units/L (39-308); CREATINE KINASE MB < 1.0 ng/mL (0-4.0); CREATININE 1.04 mg/dL (0.70-1.30); SODIUM 131 mmol/L (136-145); TOTAL PROTEIN 6.2 g/dL (6.4-8.2); TROPONIN I < 0.02 ng/mL (0-1.5); eGFR NON BLACK RACES > 60 (>60)
[2020-08-27] MEDS ORDERED: PULMICORT NEB TX 0.5 MG NEB ONE (07:25)
[2020-08-27] MEDS ORDERED: DUONEB 0.5 MG/3 MG (3 mL) NEB ONE (07:25)
--- NOTE | 2020-08-27 07:49 | RAD ---
HISTORYSOB, [id number], 1 VIEWCOMPARISONPortable chest August 26, 2020FINDINGSThe trachea is midline. The cardiac silhouette is mildly enlarged but stable.. The infiltrate in the left lung base is unchanged from the prior day's film. There is improved aeration in the right lung base but the depth of inspiration is much better than what was seen on the prior day's film.. The bony thorax is unremarkable.IMPRESSIONCardiomegaly without vascular congestion. The infiltrate in the left lower lung field is unchanged from prior day's film but there is improved aeration in the right lung base associated with a better degree of inspiration than seen on the film of August 26, 2020. No effusions are observed. Findings favor pneumonia over CHF.Electronically signed by: ERICK LIMON (Aug 27, 2020 07:47:23)
[2020-08-27] MEDS: ZINC SULFATE PO SCH ×3 (08:48→22:15)
[2020-08-27] MEDS: VSL#3 PO SCH (08:50)
[2020-08-27] MEDS: TRICOR TAB 160 MG PO SCH (08:53)
[2020-08-27] MEDS: PULMICORT NEB TX 0.5 MG NEB SCH ×2 (08:53→20:40)
[2020-08-27] MEDS: DUONEB 0.5 MG/3 MG (3 mL) NEB SCH ×4 (08:53→20:40)
[2020-08-27] MEDS: LOVENOX INJ 30 MG SYR SC SCH ×3 (08:56→22:15)
[2020-08-27] MEDS: LASIX IVP SCH (08:57)
[2020-08-27] MEDS: ROBITUSSIN DM PO SCH ×5 (08:57→22:15)
[2020-08-27] MEDS ORDERED: VITAMIN A PO SCH (09:00)
[2020-08-27] MEDS ORDERED: VITAMIN D (1.25MG) PO SCH (09:00)
--- NOTE | 2020-08-27 11:04 | DR.H&P ---
H&P - History & Physical for Day of: H&P Date: 08/26/20 - Chief Complaint Chief Complaint: SHORTNESS OF BREATH, COUGH, FEVER, GENERALIZED WEAKNESS - History of Present Illness History of Present Illness: IS A 65 YEAR OLD PATIENT OF OURS WHO PRESENTED TO THE HOSPITAL DUE TO COMPLAINTS OF COUGH, FEVER, SHORTNESS OF BREATH, AND GENERALIZED WEAKNESS. HIS OXYGEN SATURATIONS ON ROOM AIR WERE NOTED TO BE 84%. PATIENT TESTED POSITIVE FOR COVID-19 EARLIER IN THE WEEK. AUSCULTATION OF LUNG VENTURA REVEALED SCATTERED WHEEZING. HIS PMH INCLUDES CAD, HTN, GERD, CHOLECYSTECTOMY, AND ORTHO SURGERY. HE WAS ADMITTED TO THE HOSPITAL FOR FURTHER EVALUATION AND TREATMENT OF PNEUMONIA DUE TO COVID-19, CHF, RESPIRATORY DISTRESS, AND HYPOXIA. ON ARRIVAL TO THE HOSPITAL, VITALS WERE 98.2-82-30-84%RA-144/67. LABS WERE OBTAINED. ABNORMAL LAB VALUES INCLUDE THE FOLLOWING: RBC 4.39, HCT 40.8, SODIUM 131, CHLORIDE 97, BUN 20, GLUCOSE 142, FERRITIN 677, AST 51, ALK PHOS 42, CRP 78.70, ALBUMIN 3.2. BLOOD CULTURES WERE SET UP. AN ABG WAS OBTAINED AND REVEALED: 7.530, PC02 27.0, P02 56.0, HC03 22.6, P02 92, 02 SAT 92.0, FI02 21.0. COVID-19 POSITIVE. CARDIAC ENZYMES WITHIN NORMAL LIMITS. A CHEST XRAY WAS OBTAINED AND REVEALED WORSENING BILATERAL PNEUMONIA. A CHEST XRAY WAS OBTAINED AND REVEALED: Constellation of findings which may represent pulmonary edema secondary to congestive heart failure. Underlying infiltrate not entirely excluded. Recommend clinical/laboratory correlation. HE WAS GIVEN K-DUR 20MEQ X 1, LASIX 20MG IV X 1, AND ROCEPHIN 1G IV X 1 IN THE ER. HE WAS STARTED ON NORMAL SALINE AT KVO, REMDESIVIR 250MG IV X 1 DOSE, THEN 100MG IV DAILY, ZOSYN 3.375G IV TID, SOLU-MEDROL 80MG IV Q8H, DUONEBS QID, PULMICORT NEBS BID, TUSSIONEX 5ML PO Q12H PRN, LOVENOX 30MG SC BID, ROBITUSSIN DM 10 ML PO QID, VSL #3 2 CAPS PO DAILY, TRICOR 160MG PO DAILY, ZINC SULFATE 220MG PO BID, AND LASIX 20MG IV DAILY. HE WAS STARTED ON SUPPLEMENTAL OXYGEN WELL THE CPAP AT BEDTIME. WE WILL ORDER A UNIT OF CONVALESCENT PLASMA TO BE TRANSFUSED WHEN AVAILABLE. WE WILL ALSO OBTAIN AN ECHO AND A CHEST CTA TO RULE OUT PE. OTHERWISE, WE PLAN TO FOLLOW UP WITH AM LABS, CHEST XRAY, ABG, AND CONTINUE TO MONITOR. - Past Medical History Past Medical History: Coronary Artery Disease, Hypertension, Dyslipidemia - Past Surgical History Surgical History: Cholecystectomy, Ortho Surgery - Family History Family Medical History: Diabetes Mellitus, MS, Sudden Cardiac , Hypertension - Social History Does patient currently use any type of tobacco product: No Have you used tobacco products in the last 12 months: No Type of Tobacco Use: None Does any household member use tobacco: No Alcohol Use: None - Medications Home Medications: No Known Drug Allergies Allergy (Verified 12/28/18 18:04) - Review of Systems Constitutional: Fever, Chills, Weakness Eyes: No Symptoms Reported ENT: No Symptoms Reported Respiratory: Cough, Shortness of Breath, Wheezing Cardiovascular: No Symptoms Reported Gastrointestinal: No Symptoms Reported Genitourinary: No Symptoms Reported Musculoskeletal: No Symptoms Reported Skin: No Symptoms Reported Neurological: No Symptoms Reported - Physical Exam Vital Signs: Temperature 99.4 F Pulse Rate 62 Respiratory Rate 24 Blood Pressure [Right Arm] 129/66 Blood Pressure [Left Arm] 168/92 Blood Pressure 129/60 O2 Sat by Pulse Oximetry 92 Oriented: Normal Eyes: Normal Ear: Normal Nose: Normal Throat: Normal Respiratory: Wheezes Throughout Cardiovascular: Normal : Normal Auscultation: Bowel Sounds: Normal Palpation: Normal Tenderness: Normal Skin: Normal Musculoskeletal: Normal Psychiatric: Normal Mood Description: Calm Affect: Normal Speech Pattern: Clear - Assessment/Plan (1) Pneumonia due to COVID-19 virus Status: Acute Plan: ADMIT, NORMAL SALINE AT KVO, REMDESIVIR 250MG IV X 1 DOSE, THEN 100MG IV DAILY, ZOSYN 3.375G IV TID, SOLU-MEDROL 80MG IV Q8H, DUONEBS QID, PULMICORT NEBS BID, TUSSIONEX 5ML PO Q12H PRN, LOVENOX 30MG SC BID, ROBITUSSIN DM 10 ML PO QID, VSL #3 2 CAPS PO DAILY, TRICOR 160MG PO DAILY, ZINC SULFATE 220MG PO BID, AND LASIX 20MG IV DAILY. SUPPLEMENTAL OXYGEN, OBTAIN ECHO AND CHEST CTA (2) CHF (congestive heart failure) Qualifiers: Heart failure type: unspecified Heart failure chronicity: unspecified Qualified Code(s): I50.9 - Heart failure, unspecified Status: Acute (3) Hypoxia Status: Acute (4) Respiratory distress Status: Acute - Allergies Allergies/Adverse Reactions: Allergies Allergy/AdvReac Type Severity Reaction Status Date / Time No Known Drug Allergies Allergy Verified 12/28/18 18:04
[2020-08-27] MEDS: REMDESIVIR 100 MG in NS 250 ML IV 250 ML IV SCH (11:45)
[2020-08-27] MEDS: SOLU-Medrol 40 MG VIAL IVP SCH ×3 (12:03→22:14)
[2020-08-27] MEDS ORDERED: SOLU-Medrol 125 MG VIAL ONE (12:09)
--- NOTE | 2020-08-27 14:34 | CT ---
HISTORYSOB, COVID 19STUDYCTA CHESTCOMPARISONChest radiograph from 08/27/2020TECHNIQUECTA chest protocol with axial images from the thoracic inlet to upper abdomen with IV contrast. Sagittal and coronal reformats and MIP images were created. Automated exposure control was utilized.FINDINGSThe thyroid gland has of low-attenuation lesion at the right isthmus measuring 12 mm on image 20 series 4. The thoracic aorta is normal in caliber with mild atherosclerotic disease. Pulmonary artery is normal in caliber centrally. No filling defects are identified to suggest pulmonary embolus. Right-sided gynecomastia. The heart is enlarged. No pericardial effusion. Severe coronary artery calcification present. No pathologic adenopathy in the thorax small hiatal hernia. Cholecystectomy noted. Hepatic steatosis. Indeterminate solid 4 cm right upper pole renal lesion with Hounsfield units of approximately 66. See image 110 series 4. The trachea and mainstem bronchi are patent. Bilateral scattered ground-glass opacities with a peripheral and lower lung distribution. No pleural effusion or pneumothorax.IMPRESSIONLung findings typical for covid 19.Indeterminate right upper pole renal lesions suspicious for solid mass/neoplasm. Recommend CT or MRI renal protocol for further evaluation.Right-sided gynecomastia.Cardiomegaly with severe coronary artery disease.Electronically signed by: Andrzej Galeana (Aug 27, 2020 14:32:02)
[2020-08-27] MEDS ORDERED: NS 100 ML IV 100 ML IV ONE (15:53)
[2020-08-27] MEDS: NS 1000 ML 1,000 ML IV SCH (18:02)
[2020-08-27] MEDS: TUSSIONEX PENNKINETIC SUSP PO PRN ×2 (21:00)
[2020-08-28 05:18] LABS: ABG ALLEN TEST POS; ABG BASE EXCESS -1.8 mmol/L (-2.0-2.0); ABG HCO3 21.9 mmol/L (22-26)
[2020-08-28] MEDS: SOLU-Medrol 40 MG VIAL IVP SCH ×3 (05:34→22:25)
[2020-08-28] MEDS: ZOSYN VIAL 3.375 GRAMS 3.375 G in NS 100 ML IV + SPIKE MINIBAG* 100 ML IV SCH ×3 (05:34→22:00)
[2020-08-28 05:35] LABS: BASOPHILS % (AUTO) 0.2 % (0.2-1.0); HEMATOCRIT 37.4 % (42.0-54.0); HEMOGLOBIN 12.9 g/dL (13.5-18.0); LYMPHOCYTES # (AUTO) 0.4 X10^3/uL (1.3-2.9); LYMPHOCYTES % (AUTO) 13.4 % (21.0-51.0); MEAN CORPUSCULAR HEMOGLOBIN 32.5 pg (27.0-34.0); MEAN CORPUSCULAR HGB CONC 34.5 g/dL (33.0-35.0); MEAN CORPUSCULAR VOLUME 94.2 fL (80.0-100.0); MEAN PLATELET VOLUME 7.7 fL (7.4-11.0); MONOCYTES # (AUTO) 0.3 x10^3/uL (0.3-0.8); MONOCYTES % (AUTO) 12.2 % (0.0-13.0); NEUTROPHILS % (AUTO) 74.2 % (42.0-75.0); PLATELET COUNT 189 X10^3/uL (150.0-450.0); RED BLOOD COUNT 3.97 X10^6/uL (4.7-6.0); RED CELL DISTRIBUTION WIDTH 13.3 % (11.6-16.5); WHITE BLOOD COUNT 2.7 X10^3/uL (3.6-10.0)
[2020-08-28 06:01] LABS: BLOOD UREA NITROGEN 24 mg/dL (7-18); CHLORIDE 101 mmol/L (98-107); CREATININE 1.26 mg/dL (0.70-1.30); SODIUM 136 mmol/L (136-145); eGFR NON BLACK RACES > 60 (>60)
[2020-08-28 06:02] LABS: ALANINE AMINOTRANSFERASE 64 Units/L (12-78); ALBUMIN 2.7 g/dL (3.4-5.0); ALKALINE PHOSPHATASE 41 Units/L (46-116); ASPARTATE AMINO TRANSFERASE 46 Units/L (15-37); CALCIUM 8.5 mg/dL (8.5-10.1); COR CA(FOR HYPOALB) 9.5 mg/dL (8.5-10.1); COR NA(FOR HYPERGLY) 142 mmol/L (136-145); TOTAL PROTEIN 6.3 g/dL (6.4-8.2)
--- NOTE | 2020-08-28 08:03 | RAD ---
HISTORYSOBSTUDYCHEST, 1 [id number] view of the chest two imagesFINDINGSCardiac and mediastinal contours within normal limits. Scattered bilateral hazy and interstitial opacities appear similar to prior. No pleural effusion or pneumothorax.IMPRESSIONNo significant change.Electronically signed by: Andrzej Galeana (Aug 28, 2020 08:01:55)
[2020-08-28] MEDS ORDERED: VITAMIN A PO SCH (09:00)
[2020-08-28] MEDS: DUONEB 0.5 MG/3 MG (3 mL) NEB SCH ×4 (09:05→21:00)
[2020-08-28] MEDS: PULMICORT NEB TX 0.5 MG NEB SCH ×2 (09:05→21:00)
[2020-08-28] MEDS: LASIX IVP SCH (09:26)
[2020-08-28] MEDS: VITAMIN D3 125 mcg (5,000 UNITS) PO SCH (09:26)
[2020-08-28] MEDS: VSL#3 PO SCH (09:26)
[2020-08-28] MEDS: TRICOR TAB 160 MG PO SCH (09:26)
[2020-08-28] MEDS: ZINC SULFATE PO SCH ×2 (09:26→21:00)
[2020-08-28] MEDS: REMDESIVIR 100 MG in NS 250 ML IV 250 ML IV SCH (09:27)
[2020-08-28] MEDS: LOVENOX INJ 30 MG SYR SC SCH (09:27)
[2020-08-28] MEDS: ROBITUSSIN DM PO SCH ×4 (09:27→21:00)
[2020-08-28] MEDS ORDERED: LOVENOX INJ 80 MG SYR SC NR (11:00)
[2020-08-28] MEDS: NS 1000 ML 1,000 ML IV SCH (14:00)
[2020-08-28] MEDS: TUSSIONEX PENNKINETIC SUSP PO PRN ×2 (21:00→22:00)
[2020-08-28] MEDS: LOVENOX INJ 120 MG SYR SC SCH (22:00)
[2020-08-29 05:03] LABS: ABG BASE EXCESS -0.6 mmol/L (-2.0-2.0); ABG HCO3 23.1 mmol/L (22-26)
[2020-08-29 05:04] LABS: ABG ALLEN TEST POS
[2020-08-29] MEDS: ZOSYN VIAL 3.375 GRAMS 3.375 G in NS 100 ML IV + SPIKE MINIBAG* 100 ML IV SCH ×4 (05:33→21:20)
[2020-08-29] MEDS: SOLU-Medrol 40 MG VIAL IVP SCH ×4 (05:33→21:20)
[2020-08-29 06:13] LABS: BASOPHILS % (AUTO) 0.2 % (0.2-1.0); HEMATOCRIT 36.6 % (42.0-54.0); HEMOGLOBIN 12.5 g/dL (13.5-18.0); LYMPHOCYTES # (AUTO) 0.5 X10^3/uL (1.3-2.9); LYMPHOCYTES % (AUTO) 6.5 % (21.0-51.0); MEAN CORPUSCULAR HEMOGLOBIN 32.2 pg (27.0-34.0); MEAN CORPUSCULAR HGB CONC 34.1 g/dL (33.0-35.0); MEAN CORPUSCULAR VOLUME 94.5 fL (80.0-100.0); MEAN PLATELET VOLUME 8.3 fL (7.4-11.0); MONOCYTES # (AUTO) 0.8 x10^3/uL (0.3-0.8); MONOCYTES % (AUTO) 10.6 % (0.0-13.0); NEUTROPHILS # (AUTO) 6.3 x10^3/uL (2.2-4.8); NEUTROPHILS % (AUTO) 82.7 % (42.0-75.0); PLATELET COUNT 241 X10^3/uL (150.0-450.0); RED BLOOD COUNT 3.88 X10^6/uL (4.7-6.0); RED CELL DISTRIBUTION WIDTH 12.9 % (11.6-16.5); WHITE BLOOD COUNT 7.7 X10^3/uL (3.6-10.0)
[2020-08-29 06:33] LABS: ALBUMIN 2.8 g/dL (3.4-5.0); CARBON DIOXIDE 23.2 mmol/L (21-32); CREATININE 1.57 mg/dL (0.70-1.30); TOTAL PROTEIN 6.3 g/dL (6.4-8.2)
--- NOTE | 2020-08-29 06:47 | RAD ---
HISTORYSOBSTUDYCHEST, 1 VIEWCOMPARISONOne day prior.TECHNIQUEAP chest 2 images.FINDINGSCardiac silhouette stably enlarged. Similar appearance of patchy scattered bilateral lung opacities. No pleural effusion or pneumothorax.IMPRESSIONNo significant change.Electronically signed by: Andrzej Galeana (Aug 29, 2020 06:46:46)
[2020-08-29] MEDS: LASIX IVP SCH (08:55)
[2020-08-29] MEDS: REMDESIVIR 100 MG in NS 250 ML IV 250 ML IV SCH (08:56)
[2020-08-29] MEDS: LOVENOX INJ 120 MG SYR SC SCH (08:56)
[2020-08-29] MEDS: TRICOR TAB 160 MG PO SCH (08:57)
[2020-08-29] MEDS: ZINC SULFATE PO SCH ×2 (08:57→21:20)
[2020-08-29] MEDS: ROBITUSSIN DM PO SCH ×4 (08:57→21:20)
[2020-08-29] MEDS: VITAMIN D3 125 mcg (5,000 UNITS) PO SCH (08:57)
[2020-08-29] MEDS: VSL#3 PO SCH (08:57)
[2020-08-29] MEDS: DUONEB 0.5 MG/3 MG (3 mL) NEB SCH ×4 (09:00→20:20)
[2020-08-29] MEDS: PULMICORT NEB TX 0.5 MG NEB SCH ×2 (09:00→20:20)
[2020-08-29] MEDS ORDERED: NS 500 ML IV 500 ML IV ONE (09:15)
[2020-08-29] MEDS: NS 1000 ML 1,000 ML IV SCH (21:19)
[2020-08-29] MEDS: LOVENOX INJ 100 MG SYR SC SCH (21:19)
--- NOTE | 2020-08-29 22:17 | PCM.PROG ---
Progress Note - Progress Note for Day of Date of Exam: 08/28/20 - Subjective Subjective: IS BEING TREATED FOR PNEUMONIA DUE TO COVID-19, CONGESTIVE HEART FAILURE, AND HYPOXIA. TODAY, HE IS ALERT AND ORIENTED, LYING IN BED ON MORNING ROUNDS. HE CONTINUES WITH COMPLAINTS OF COUGH, SHORTNESS OF BREATH, AND GENERALIZED WEAKNESS. HE IS CURRENTLY UTILIZING OXYGEN VIA NASAL CANNULA AT 3 LPM. HE USES THE BIPAP AT BEDTIME. HIS OXYGEN SATURATIONS HAVE BEEN 92-95% ON HHF. HE DENIES SIGNIFICANT IMPROVEMENT IN SYMPTOMS SINCE ADMISSION. ON EXAMINATION, HEART IS REGULAR IN RATE AND RHYTHM. BILATERAL LUNGS ARE NOTED WITH SCATTERED WHEEZING THROUGHOUT. ABDOMEN IS ROUND, SOFT, AND NON-TENDER WITH NORMAL BOWEL SOUNDS NOTED IN ALL QUADRANTS. HIS VITALS THIS MORNING ARE: 97.7-62-27-94%NC-172/79. LABS WERE OBTAINED. ABNORMAL LAB VALUES INCLUDE THE FOLLOWING: WBC 2.7, RBC 3.97, HGB 12.9, HCT 37.4, BUN 24, GLUCOSE 344, FERRITIN 932, AST 46, ALK PHOS 41, CRP 101.80, BNP 82.6, TOTAL PROTEIN 6.3, ALBUMIN 2.7. AN ABG WAS REPEATED TO DAY AND REVEALED: PH 7.430, PC02 33.0, P02 81.0, HC03 21.9, 02 SAT 96, FI02 32.0. BLOOD CULTURES ARE PENDING. CHEST XRAY REVEALED: Cardiac and mediastinal contours within normal limits. Scattered bilateral hazy and interstitial opacities appear similar to prior. No pleural effusion or pneumothorax. A CHEST CTA WAS OBTAINED AND REVEALED: Lung findings typical for covid 19. Indeterminate right upper pole renal lesions suspicious for solid mass/neoplasm. Recommend CT or MRI renal protocol for further evaluation. Right- sided gynecomastia. Cardiomegaly with severe coronary artery disease. HE HAS RECEIVED ONE UNIT OF CONVALESCENT PLASMA SINCE ADMISSION. HE IS CURRENLY RECEIVING NORMAL SALINE AT KVO, REMDESIVIR 250MG IV X 1 DOSE, THEN 100MG IV RADHA LY, ZOSYN 3.375G IV TID, SOLU-MEDROL 80MG IV Q8H, DUONEBS QID, PULMICORT NEBS BID, TUSSIONEX 5ML PO Q12H PRN, LOVENOX 30MG SC BID, ROBITUSSIN DM 10 ML PO QID, VSL #3 2 CAPS PO DAILY, TRICOR 160MG PO DAILY, ZINC SULFATE 220MG PO BID, AND LASIX 20MG IV DAILY. TODAY, WE WILL INCREASE LOVENOX TO 120MG PO BID. OTHERWISE, WE WILL COTINUE WITH CURRENT PLAN OF CARE TODAY. OTHERWISE, WE WILL FOLLOW UP WITH AM LABS AND CONTINUE TO MONITOR. TIME SPENT ON CLINICAL ASSESSMENT, REVIEWING LABS AND IMAGING, DECISION MAKING, AND DOCUMENTATION GREATER THAN 45 MINUTES. - Past Medical Family Social History Past Med/Fam/Surg Hx: No changes since H&P Allergies: Allergies No Known Drug Allergies Allergy (Verified 12/28/18 18:04) - Review of Systems ROS: No change since H&P - Vital Signs and I&O's Vital Signs: Temperature 97.9 F Pulse Rate 78 Respiratory Rate 26 Blood Pressure [Right Arm] 129/66 Blood Pressure [Left Arm] 168/92 Blood Pressure 166/76 O2 Sat by Pulse Oximetry 94 Intake and Output: Intake & Output 08/27/20 08/28/20 08/29/20 08/30/20 11:59 11:59 11:59 11:59 Intake Total 1024 / 1024 2682 / 2682 3759 / 3759 2049 Output Total 325 / 325 1800 / 1800 1500 / 1500 300 / 300 Balance 699 / 699 882 / 882 2259 / 2259 1750 / 1750 - Physical Exam Oriented: Normal Eyes: Normal Ear: Normal Nose: Normal Throat: Normal Cardiovascular: Normal : Normal Auscultation: Bowel Sounds: Normal Palpation: Normal Tenderness: Normal Skin: Normal Musculoskeletal: Normal Psychiatric: Normal Mood Description: Calm Affect: Normal Speech Pattern: Clear, Appropriate - Laboratory and Diagnostics Result Diagrams: 08/29/20 04:30 08/29/20 04:30 Labs: 08/26/20 12:40 Blood Blood Culture - Preliminary 08/26/20 11:40 Blood Blood Culture - Preliminary Laboratory WBC 7.7 X10^3/uL (3.6-10.0) 08/29/20 04:30 RBC 3.88 X10^6/uL (4.7-6.0) L 08/29/20 04:30 Hgb 12.5 g/dL (13.5-18.0) L 08/29/20 04:30 Hct 36.6 % (42.0-54.0) L 08/29/20 04:30 MCV 94.5 fL (80.0-100.0) 08/29/20 04:30 MCH 32.2 pg (27.0-34.0) 08/29/20 04:30 MCHC 34.1 g/dL (33.0-35.0) 08/29/20 04:30 RDW 12.9 % (11.6-16.5) 08/29/20 04:30 Plt Count 241 X10^3/uL (150.0-450.0) 08/29/20 04:30 MPV 8.3 fL (7.4-11.0) 08/29/20 04:30 Neut % (Auto) 82.7 % (42.0-75.0) H 08/29/20 04:30 Lymph % (Auto) 6.5 % (21.0-51.0) L 08/29/20 04:30 [place] % (Auto) 10.6 % (0.0-13.0) 08/29/20 04:30 Eos % (Auto) 0.0 % (0.9-2.9) L 08/29/20 04:30 Baso % (Auto) 0.2 % (0.2-1.0) 08/29/20 04:30 Neut # (Auto) 6.3 x10^3/uL (2.2-4.8) H 08/29/20 04:30 Lymph # (Auto) 0.5 X10^3/uL (1.3-2.9) L 08/29/20 04:30 [place] # (Auto) 0.8 x10^3/uL (0.3-0.8) 08/29/20 04:30 Eos # (Auto) 0.0 x10^3/uL (0.0-0.2) 08/29/20 04:30 Baso # (Auto) 0.0 X10^3/uL (0.0-0.1) 08/29/20 04:30 Absolute Nucleated RBC 0.0 /100WBC 08/29/20 04:30 D-Dimer 0.72 ug/ml (0.0-0.57) H* 08/27/20 04:15 Sample Site Rr 08/29/20 04:58 ABG pH 7.440 (7.35-7.45) 08/29/20 04:58 ABG pCO2 34.0 mmHg (35.0-45.0) L 08/29/20 04:58 ABG pO2 68.0 mmHg (80.0-100.0) L 08/29/20 04:58 ABG HCO3 23.1 mmol/L (22-26) 08/29/20 04:58 ABG O2 Saturation 94.0 % (90-100) 08/29/20 04:58 ABG Base Excess -0.6 mmol/L (-2.0-2.0) 08/29/20 04:58 Farzad Test Pos 08/29/20 04:58 A-a Gradient 118.0 mmHg 08/29/20 04:58 FiO2 32.0 08/29/20 04:58 Blood Gas Comments Ulises well ae 08/29/20 04:58 Sodium 138 mmol/L (136-145) 08/29/20 04:30 Corrected Sodium 147 mmol/L (136-145) H 08/29/20 04:30 Potassium 3.4 mmol/L (3.5-5.1) L 08/29/20 04:30 Chloride 102 mmol/L (98-107) 08/29/20 04:30 Carbon Dioxide 23.2 mmol/L (21-32) 08/29/20 04:30 BUN 38 mg/dL (7-18) H 08/29/20 04:30 Creatinine 1.57 mg/dL (0.70-1.30) H 08/29/20 04:30 Est GFR (MDRD) Af Amer 57 (>60) L 08/29/20 04:30 Est GFR (MDRD) Non-Af 47 (>60) L 08/29/20 04:30 Glucose 482 mg/dL (65-99) H 08/29/20 04:30 Lactic Acid 1.6 mmol/L (0.4-2.0) 08/26/20 11:40 Calcium 9.0 mg/dL (8.5-10.1) 08/29/20 04:30 Corrected Calcium 10.0 mg/dL (8.5-10.1) 08/29/20 04:30 Magnesium 2.5 mg/dL (1.7-2.9) 08/29/20 04:30 Ferritin 780 ng/mL (26-388) H 08/29/20 04:30 Total Bilirubin 0.30 mg/dL (0.2-1.0) 08/29/20 04:30 AST 34 Units/L (15-37) 08/29/20 04:30 ALT 64 Units/L (12-78) 08/29/20 04:30 Alkaline Phosphatase 42 Units/L (46-116) L 08/29/20 04:30 Creatine Kinase 215 Units/L (39-308) 08/27/20 04:15 CK-MB (CK-2) < 1.0 ng/mL (0-4.0) 08/27/20 04:15 CK/CKMB % Calc 0.5 % (<4) 08/27/20 04:15 Troponin I < 0.02 ng/mL (0-1.5) 08/27/20 04:15 C-Reactive Protein 62.70 mg/L (0-3.0) H 08/29/20 04:30 B-Natriuretic Peptide 82.6 pg/mL (0-79) H 08/28/20 23:10 Total Protein 6.3 g/dL (6.4-8.2) L 08/29/20 04:30 Albumin 2.8 g/dL (3.4-5.0) L 08/29/20 04:30 Globulin 3.5 g/dL (2.5-4.5) 08/29/20 04:30 Albumin/Globulin Ratio 0.8 Ratio (1.1-2.1) L 08/29/20 04:30 Influenza Type A (PCR) Negative (NEGATIVE) 08/27/20 13:15 Influenza Type B (PCR) Negative (NEGATIVE) 08/27/20 13:15 SARS CoV-2 RNA Rapid TONY Positive (NEGATIVE) A 08/26/20 15:50 Blood Type A POSITIVE 08/27/20 10:02 - Plan (1) Pneumonia due to COVID-19 virus Status: Acute Plan: NORMAL SALINE AT KVO, REMDESIVIR 100MG IV DAILY, ZOSYN 3.375G IV TID, SOLU-MEDROL 80MG IV Q8H, DUONEBS QID, PULMICORT NEBS BID, TUSSIONEX 5ML PO Q12H PRN, LOVENOX 120MG SC BID, ROBITUSSIN DM 10 ML PO QID, VSL #3 2 CAPS PO DAILY, TRICOR 160MG PO DAILY, ZINC SULFATE 220MG PO BID, AND LASIX 20MG IV DAILY. SUPPLEMENTAL OXYGEN (2) CHF (congestive heart failure) Status: Acute Qualifiers: Heart failure type: unspecified Heart failure chronicity: unspecified Qualified Code(s): I50.9 - Heart failure, unspecified (3) Hypoxia Status: Acute (4) Respiratory distress Status: Acute
--- NOTE | 2020-08-29 22:27 | PCM.PROG ---
Progress Note - Progress Note for Day of Date of Exam: 08/29/20 - Subjective Subjective: IS BEING TREATED FOR PNEUMONIA DUE TO COVID-19, CONGESTIVE HEART FAILURE, AND HYPOXIA. TODAY, HE IS ALERT AND ORIENTED, LYING IN BED ON MORNING ROUNDS. HE CONTINUES WITH COMPLAINTS OF COUGH, SHORTNESS OF BREATH, AND GENERALIZED WEAKNESS. HE IS CURRENTLY UTILIZING THE BIPAP. HIS OXYGEN SATURATIONS HAVE BEEN 90-93% ON HHF. HE DENIES SIGNIFICANT IMPROVEMENT IN SYMPTOMS SINCE ADMISSION. ON EXAMINATION, HEART IS REGULAR IN RATE AND RHYTHM. BILATERAL LUNGS ARE NOTED WITH SCATTERED WHEEZING THROUGHOUT. ABDOMEN IS ROUND, SOFT, AND NON-TENDER WITH NORMAL BOWEL SOUNDS NOTED IN ALL QUADRANTS. HIS VITALS THIS MORNING ARE: 98.2-72-26-90%-172/81. LABS WERE OBTAINED. ABNORMAL LAB VALUES INCLUDE THE FOLLOWING: RBC 3.88, HGB 12.5, POTASSIUM 3.4, BUN 38, CREATININE 1.57, GLUCOSE 482, FERRITIN 780, ALK PHOS 42, CRP 62.70, TOTAL PROTEIN 6.3, ALBUMIN 2.8. AN ABG WAS REPEATED TO DAY AND REVEALED: PH 7.440, PC02 34.0, P02 68.0, HC03 23.1, 02 SAT 94, 02 SAT 94, FI02 32. BLOOD CULTURES ARE PENDING. CHEST XRAY REVEALED: Cardiac silhouette stably enlarged. Similar appearance of patchy scattered bilateral lung opacities. No pleural effusion or pneumothorax. HE HAS RECEIVED ONE UNIT OF CONVALESCENT PLASMA SINCE ADMISSION. HE IS CURRENLY RECEIVING NORMAL SALINE AT [facility], REMDESIVIR 100MG IV DAILY, ZOSYN 3.375G IV TID, SOLU-MEDROL 80MG IV Q8H, DUONEBS QID, PULMICORT NEBS BID, TUSSIONEX 5ML PO Q12H PRN, LOVENOX 120MG SC BID, ROBITUSSIN DM 10 ML PO QID, VSL #3 2 CAPS PO DAILY, TRICOR 160MG PO DAILY, ZINC SULFATE 220MG PO BID, AND LASIX 20MG IV DAILY. DUE TO INCREASED BUN/CREATININE, WE WILL HOLD HIS LASIX TODAY AND GIVEN A 500ML NORMAL SALINE BOLUS. WE WILL THEN INCREASE HIS IV FLUIDS TO 75 ML/HR. OTHERWISE, WE WILL CONTINUE WITH CURRENT PLAN OF CARE TODAY. WE WILL FOLLOW UP WITH AM LABS AND CONTINUE TO MONITOR. TIME SPENT ON CLINICAL ASSESSMENT, REVIEWING LABS AND IMAGING, DECISION MAKING, AND DOCUMENTATION GREATER THAN 45 MINUTES. - Past Medical Family Social History Past Med/Fam/Surg Hx: No changes since H&P Allergies: Allergies No Known Drug Allergies Allergy (Verified 12/28/18 18:04) - Review of Systems ROS: No change since H&P - Vital Signs and I&O's Vital Signs: Temperature 97.9 F Pulse Rate 78 Respiratory Rate 26 Blood Pressure [Right Arm] 129/66 Blood Pressure [Left Arm] 168/92 Blood Pressure 166/76 O2 Sat by Pulse Oximetry 94 Intake and Output: Intake & Output 08/27/20 08/28/20 08/29/20 08/30/20 11:59 11:59 11:59 11:59 Intake Total 1024 / 1024 2682 / 2682 3759 / 3759 2049 Output Total 325 / 325 1800 / 1800 1500 / 1500 300 / 300 Balance 699 / 699 882 / 882 2259 / 2259 1750 / 1750 - Physical Exam Oriented: Normal Eyes: Normal Ear: Normal Nose: Normal Throat: Normal Respiratory: Diminished, Wheezes Cardiovascular: Normal : Normal Auscultation: Bowel Sounds: Normal Palpation: Normal Tenderness: Normal Skin: Normal Musculoskeletal: Normal Psychiatric: Normal Mood Description: Calm Affect: Normal Speech Pattern: Clear, Appropriate - Laboratory and Diagnostics Result Diagrams: 08/29/20 04:30 08/29/20 04:30 Labs: 08/26/20 12:40 Blood Blood Culture - Preliminary 08/26/20 11:40 Blood Blood Culture - Preliminary Laboratory WBC 7.7 X10^3/uL (3.6-10.0) 08/29/20 04:30 RBC 3.88 X10^6/uL (4.7-6.0) L 08/29/20 04:30 Hgb 12.5 g/dL (13.5-18.0) L 08/29/20 04:30 Hct 36.6 % (42.0-54.0) L 08/29/20 04:30 MCV 94.5 fL (80.0-100.0) 08/29/20 04:30 MCH 32.2 pg (27.0-34.0) 08/29/20 04:30 MCHC 34.1 g/dL (33.0-35.0) 08/29/20 04:30 RDW 12.9 % (11.6-16.5) 08/29/20 04:30 Plt Count 241 X10^3/uL (150.0-450.0) 08/29/20 04:30 MPV 8.3 fL (7.4-11.0) 08/29/20 04:30 Neut % (Auto) 82.7 % (42.0-75.0) H 08/29/20 04:30 Lymph % (Auto) 6.5 % (21.0-51.0) L 08/29/20 04:30 [place] % (Auto) 10.6 % (0.0-13.0) 08/29/20 04:30 Eos % (Auto) 0.0 % (0.9-2.9) L 08/29/20 04:30 Baso % (Auto) 0.2 % (0.2-1.0) 08/29/20 04:30 Neut # (Auto) 6.3 x10^3/uL (2.2-4.8) H 08/29/20 04:30 Lymph # (Auto) 0.5 X10^3/uL (1.3-2.9) L 08/29/20 04:30 [place] # (Auto) 0.8 x10^3/uL (0.3-0.8) 08/29/20 04:30 Eos # (Auto) 0.0 x10^3/uL (0.0-0.2) 08/29/20 04:30 Baso # (Auto) 0.0 X10^3/uL (0.0-0.1) 08/29/20 04:30 Absolute Nucleated RBC 0.0 /100WBC 08/29/20 04:30 D-Dimer 0.72 ug/ml (0.0-0.57) H* 08/27/20 04:15 Sample Site Rr 08/29/20 04:58 ABG pH 7.440 (7.35-7.45) 08/29/20 04:58 ABG pCO2 34.0 mmHg (35.0-45.0) L 08/29/20 04:58 ABG pO2 68.0 mmHg (80.0-100.0) L 08/29/20 04:58 ABG HCO3 23.1 mmol/L (22-26) 08/29/20 04:58 ABG O2 Saturation 94.0 % (90-100) 08/29/20 04:58 ABG Base Excess -0.6 mmol/L (-2.0-2.0) 08/29/20 04:58 Farzad Test Pos 08/29/20 04:58 A-a Gradient 118.0 mmHg 08/29/20 04:58 FiO2 32.0 08/29/20 04:58 Blood Gas Comments Ulises well ae 08/29/20 04:58 Sodium 138 mmol/L (136-145) 08/29/20 04:30 Corrected Sodium 147 mmol/L (136-145) H 08/29/20 04:30 Potassium 3.4 mmol/L (3.5-5.1) L 08/29/20 04:30 Chloride 102 mmol/L (98-107) 08/29/20 04:30 Carbon Dioxide 23.2 mmol/L (21-32) 08/29/20 04:30 BUN 38 mg/dL (7-18) H 08/29/20 04:30 Creatinine 1.57 mg/dL (0.70-1.30) H 08/29/20 04:30 Est GFR (MDRD) Af Amer 57 (>60) L 08/29/20 04:30 Est GFR (MDRD) Non-Af 47 (>60) L 08/29/20 04:30 Glucose 482 mg/dL (65-99) H 08/29/20 04:30 Lactic Acid 1.6 mmol/L (0.4-2.0) 08/26/20 11:40 Calcium 9.0 mg/dL (8.5-10.1) 08/29/20 04:30 Corrected Calcium 10.0 mg/dL (8.5-10.1) 08/29/20 04:30 Magnesium 2.5 mg/dL (1.7-2.9) 08/29/20 04:30 Ferritin 780 ng/mL (26-388) H 08/29/20 04:30 Total Bilirubin 0.30 mg/dL (0.2-1.0) 08/29/20 04:30 AST 34 Units/L (15-37) 08/29/20 04:30 ALT 64 Units/L (12-78) 08/29/20 04:30 Alkaline Phosphatase 42 Units/L (46-116) L 08/29/20 04:30 Creatine Kinase 215 Units/L (39-308) 08/27/20 04:15 CK-MB (CK-2) < 1.0 ng/mL (0-4.0) 08/27/20 04:15 CK/CKMB % Calc 0.5 % (<4) 08/27/20 04:15 Troponin I < 0.02 ng/mL (0-1.5) 08/27/20 04:15 C-Reactive Protein 62.70 mg/L (0-3.0) H 08/29/20 04:30 B-Natriuretic Peptide 82.6 pg/mL (0-79) H 08/28/20 23:10 Total Protein 6.3 g/dL (6.4-8.2) L 08/29/20 04:30 Albumin 2.8 g/dL (3.4-5.0) L 08/29/20 04:30 Globulin 3.5 g/dL (2.5-4.5) 08/29/20 04:30 Albumin/Globulin Ratio 0.8 Ratio (1.1-2.1) L 08/29/20 04:30 Influenza Type A (PCR) Negative (NEGATIVE) 08/27/20 13:15 Influenza Type B (PCR) Negative (NEGATIVE) 08/27/20 13:15 SARS CoV-2 RNA Rapid TONY Positive (NEGATIVE) A 08/26/20 15:50 Blood Type A POSITIVE 08/27/20 10:02 - Plan (1) Pneumonia due to COVID-19 virus Status: Acute Plan: NORMAL SALINE AT 75 ML/HR, REMDESIVIR 100MG IV DAILY, ZOSYN 3.375G IV TID, SOLU-MEDROL 80MG IV Q8H, DUONEBS QID, PULMICORT NEBS BID, TUSSIONEX 5ML PO Q12H PRN, LOVENOX 120MG SC BID, ROBITUSSIN DM 10 ML PO QID, VSL #3 2 CAPS PO DAILY, TRICOR 160MG PO DAILY, ZINC SULFATE 220MG PO BID. SUPPLEMENTAL OXYGEN (2) CHF (congestive heart failure) Status: Acute Qualifiers: Heart failure type: unspecified Heart failure chronicity: unspecified Qualified Code(s): I50.9 - Heart failure, unspecified (3) Hypoxia Status: Acute (4) Respiratory distress Status: Acute
[2020-08-30 05:10] LABS: ABG ALLEN TEST POS; ABG BASE EXCESS 1.3 mmol/L (-2.0-2.0); ABG HCO3 24.9 mmol/L (22-26)
[2020-08-30 05:25] LABS: BASOPHILS % (AUTO) 0.2 % (0.2-1.0); HEMATOCRIT 37.7 % (42.0-54.0); HEMOGLOBIN 12.7 g/dL (13.5-18.0); LYMPHOCYTES # (AUTO) 0.6 X10^3/uL (1.3-2.9); LYMPHOCYTES % (AUTO) 6.6 % (21.0-51.0); MEAN CORPUSCULAR HEMOGLOBIN 31.9 pg (27.0-34.0); MEAN CORPUSCULAR HGB CONC 33.6 g/dL (33.0-35.0); MEAN CORPUSCULAR VOLUME 95.1 fL (80.0-100.0); MEAN PLATELET VOLUME 8.5 fL (7.4-11.0); MONOCYTES # (AUTO) 0.5 x10^3/uL (0.3-0.8); MONOCYTES % (AUTO) 6.3 % (0.0-13.0); NEUTROPHILS # (AUTO) 7.5 x10^3/uL (2.2-4.8); NEUTROPHILS % (AUTO) 86.9 % (42.0-75.0); PLATELET COUNT 273 X10^3/uL (150.0-450.0); RED BLOOD COUNT 3.96 X10^6/uL (4.7-6.0); RED CELL DISTRIBUTION WIDTH 13.4 % (11.6-16.5); WHITE BLOOD COUNT 8.7 X10^3/uL (3.6-10.0)
[2020-08-30] MEDS: ZOSYN VIAL 3.375 GRAMS 3.375 G in NS 100 ML IV + SPIKE MINIBAG* 100 ML IV SCH ×3 (05:25→21:22)
[2020-08-30] MEDS: SOLU-Medrol 40 MG VIAL IVP SCH ×3 (05:25→21:22)
[2020-08-30 05:37] LABS: ALANINE AMINOTRANSFERASE 66 Units/L (12-78); ALBUMIN 2.8 g/dL (3.4-5.0); ALKALINE PHOSPHATASE 46 Units/L (46-116); ASPARTATE AMINO TRANSFERASE 41 Units/L (15-37); BLOOD UREA NITROGEN 43 mg/dL (7-18); CHLORIDE 104 mmol/L (98-107); COR NA(FOR HYPERGLY) 149 mmol/L (136-145); CREATININE 1.38 mg/dL (0.70-1.30); SODIUM 140 mmol/L (136-145); TOTAL PROTEIN 6.2 g/dL (6.4-8.2); eGFR NON BLACK RACES 55 (>60)
[2020-08-30 05:57] LABS: CARBON DIOXIDE 22.5 mmol/L (21-32)
[2020-08-30] MEDS: VSL#3 PO SCH (08:02)
[2020-08-30] MEDS: ZINC SULFATE PO SCH ×2 (08:02→21:23)
[2020-08-30] MEDS: ROBITUSSIN DM PO SCH ×4 (08:02→21:24)
[2020-08-30] MEDS: VITAMIN D3 125 mcg (5,000 UNITS) PO SCH (08:02)
[2020-08-30] MEDS: TRICOR TAB 160 MG PO SCH (08:03)
--- NOTE | 2020-08-30 08:10 | RAD ---
HISTORYCOVID, SOBSTUDYCHEST, 1 [id number]/2020FINDINGSThe trachea is midline. There is mild cardiomegaly. There is mild worsening of disease in the right lower lobe with increased ground-glass and interstitial radiopacities. There is persistent ground-glass radiopacities in the right upper lobe. There is also some few new patchy radiopacities in the left base. No pneumothorax or pleural effusion.IMPRESSIONInterval worsening of disease with increased ground-glass radiopacities in the right upper lobe and in the right lower lobe and mild in the left lower lobeElectronically signed by: Loida Diaz (Aug 30, 2020 08:08:06)
[2020-08-30] MEDS: REMDESIVIR 100 MG in NS 250 ML IV 250 ML IV SCH (09:00)
[2020-08-30] MEDS: PULMICORT NEB TX 0.5 MG NEB SCH ×2 (09:30→21:02)
[2020-08-30] MEDS: DUONEB 0.5 MG/3 MG (3 mL) NEB SCH ×4 (09:30→21:02)
[2020-08-30] MEDS: NS 1000 ML 1,000 ML IV SCH (16:54)
[2020-08-30] MEDS: ZyrTEC TAB 10 MG PO SCH (16:56)
[2020-08-30] MEDS: ZESTRIL TAB 40 MG PO SCH (16:56)
[2020-08-30] MEDS ORDERED: ZOCOR TAB 20 MG PO SCH (17:00)
[2020-08-30] MEDS: LOVENOX INJ 100 MG SYR SC SCH ×2 (19:40→21:23)
[2020-08-30] MEDS: APRESOLINE TAB 25 MG PO SCH (21:22)
[2020-08-30] MEDS: ZOCOR TAB 20 MG PO SCH (21:22)
[2020-08-30] MEDS: TUSSIONEX PENNKINETIC SUSP PO PRN (21:24)
[2020-08-31 05:05] LABS: ABG BASE EXCESS 4.7 mmol/L (-2.0-2.0); ABG HCO3 28.2 mmol/L (22-26)
[2020-08-31 05:06] LABS: ABG ALLEN TEST POS
[2020-08-31] MEDS: ZOSYN VIAL 3.375 GRAMS 3.375 G in NS 100 ML IV + SPIKE MINIBAG* 100 ML IV SCH ×3 (05:08→21:00)
[2020-08-31] MEDS: SOLU-Medrol 40 MG VIAL IVP SCH ×3 (05:08→21:00)
[2020-08-31] MEDS: NS 1000 ML 1,000 ML IV SCH (05:11)
[2020-08-31 05:27] LABS: BASOPHILS # (AUTO) 0.1 X10^3/uL (0.0-0.1); BASOPHILS % (AUTO) 0.7 % (0.2-1.0); HEMATOCRIT 37.5 % (42.0-54.0); HEMOGLOBIN 13.1 g/dL (13.5-18.0); LYMPHOCYTES # (AUTO) 0.5 X10^3/uL (1.3-2.9); LYMPHOCYTES % (AUTO) 5.5 % (21.0-51.0); MEAN CORPUSCULAR HEMOGLOBIN 32.7 pg (27.0-34.0); MEAN CORPUSCULAR VOLUME 93.5 fL (80.0-100.0); MEAN PLATELET VOLUME 7.9 fL (7.4-11.0); MONOCYTES # (AUTO) 0.5 x10^3/uL (0.3-0.8); MONOCYTES % (AUTO) 5.6 % (0.0-13.0); NEUTROPHILS # (AUTO) 8.6 x10^3/uL (2.2-4.8); NEUTROPHILS % (AUTO) 88.2 % (42.0-75.0); PLATELET COUNT 290 X10^3/uL (150.0-450.0); RED BLOOD COUNT 4.01 X10^6/uL (4.7-6.0); RED CELL DISTRIBUTION WIDTH 13.5 % (11.6-16.5); WHITE BLOOD COUNT 9.8 X10^3/uL (3.6-10.0)
[2020-08-31 05:56] LABS: ALBUMIN 2.7 g/dL (3.4-5.0); ASPARTATE AMINO TRANSFERASE 45 Units/L (15-37); TOTAL PROTEIN 5.9 g/dL (6.4-8.2); eGFR NON BLACK RACES > 60 (>60)
[2020-08-31 06:08] LABS: BAND NEUTROPHILS % 1 % (0-10); PLATELET MORPHOLOGY COMMENT NORMAL (NORMAL)
[2020-08-31 06:33] LABS: ALANINE AMINOTRANSFERASE 90 Units/L (12-78); ALKALINE PHOSPHATASE 53 Units/L (46-116); BLOOD UREA NITROGEN 43 mg/dL (7-18); CREATININE 1.19 mg/dL (0.70-1.30)
[2020-08-31 06:38] LABS: CHLORIDE 107 mmol/L (98-107); COR NA(FOR HYPERGLY) 150 mmol/L (136-145); SODIUM 142 mmol/L (136-145)
--- NOTE | 2020-08-31 07:47 | RAD ---
HISTORYCOVID, SOBSTUDYCHEST, 1 VIEWCOMPARISONPortable chest August 30, 2020FINDINGSThe trachea is midline. The cardiac silhouette is normal. The left lung is clear other than a skin fold seen over the left upper lateral chest. There is a mild worsening min infiltrate in the right lung base compared to yesterdays film the bony thorax is unremarkable.IMPRESSIONMild worsening infiltrate in the right lung base compared to yesterdays film.Electronically signed by: ERICK LIMON (Aug 31, 2020 07:45:07)
[2020-08-31] MEDS: DUONEB 0.5 MG/3 MG (3 mL) NEB SCH ×4 (08:55→21:23)
[2020-08-31] MEDS: PULMICORT NEB TX 0.5 MG NEB SCH ×2 (08:55→21:23)
[2020-08-31] MEDS ORDERED: ZOFRAN INJ 4 MG VIAL IVP PRN (08:55)
[2020-08-31] MEDS: REMDESIVIR 100 MG in NS 250 ML IV 250 ML IV SCH (09:50)
[2020-08-31] MEDS: APRESOLINE TAB 25 MG PO SCH ×2 (09:50→20:19)
[2020-08-31] MEDS: TRICOR TAB 160 MG PO SCH (09:51)
[2020-08-31] MEDS: VITAMIN D3 125 mcg (5,000 UNITS) PO SCH (09:51)
[2020-08-31] MEDS: ROBITUSSIN DM PO SCH ×4 (09:51→20:20)
[2020-08-31] MEDS: ZyrTEC TAB 10 MG PO SCH (09:52)
[2020-08-31] MEDS: ZINC SULFATE PO SCH ×2 (09:52→20:21)
[2020-08-31] MEDS: VSL#3 PO SCH (09:52)
[2020-08-31] MEDS: ZESTRIL TAB 40 MG PO SCH (09:52)
[2020-08-31] MEDS: LOVENOX INJ 100 MG SYR SC SCH ×3 (09:53→20:20)
--- NOTE | 2020-08-31 13:09 | PCM.PROG ---
Progress Note - Progress Note for Day of Date of Exam: 08/30/20 - Subjective Subjective: IS BEING TREATED FOR PNEUMONIA DUE TO COVID-19, CONGESTIVE HEART FAILURE, AND HYPOXIA. TODAY, HE IS ALERT AND ORIENTED, LYING IN BED ON MORNING ROUNDS. HE CONTINUES WITH COMPLAINTS OF COUGH, SHORTNESS OF BREATH, AND GENERALIZED WEAKNESS. HE IS CURRENTLY UTILIZING THE BIPAP. HIS OXYGEN SATURATIONS HAVE BEEN 90-94% ON THE BIPAP. HE REPORTS SLIGHT IMPROVEMENT IN SYMPTOMS SINCE ADMISSION. ON EXAMINATION, HEART IS REGULAR IN RATE AND RHYTHM. BILATERAL LUNGS ARE NOTED WITH SCATTERED WHEEZING THROUGHOUT. ABDOMEN IS ROUND, SOFT, AND NON-TENDER WITH NORMAL BOWEL SOUNDS NOTED IN ALL QUADRANTS. HIS VITALS THIS MORNING ARE: 97.9-63-11-89%CPAP-193/89. LABS WERE OBTAINED. ABNORMAL LAB VALUES INCLUDE THE FOLLOWING: RBC 3.96, HGB 12.7, HCT 37.7, BUN 43, CREATININE 1.38, GLUCOSE 466, FERRITIN 665, AST 41, CRP 34.40, BNP 100, TOTAL PROTEIN 6.2, ALBUMIN 2.8. AN ABG WAS REPEATED TO DAY AND REVEALED: PH 7.460, PC02 35, P02 62, HC03 24.9, 02 SAT 93, FI02 32. BLOOD CULTURES ARE PENDING. CHEST XRAY REVEALED: Interval worsening of disease with increased ground-glass radiopacities in the right upper lobe and in the right lower lobe and mild in the left lower lobe. HE HAS RECEIVED ONE UNIT OF CONVALESCENT PLASMA SINCE ADMISSION. HE IS CURRENLY RECEIVING NORMAL SALINE AT 75 ML/HR, REMDESIVIR 100MG IV DAILY, ZOSYN 3.375G IV TID, SOLU-MEDROL 80MG IV Q8H, DUONEBS QID, PULMICORT NEBS BID, TUSSIONEX 5ML PO Q12H PRN, LOVENOX 120MG SC BID, ROBITUSSIN DM 10 ML PO QID, VSL #3 2 CAPS PO DAILY, TRICOR 160MG PO DAILY, ZINC SULFATE 220MG PO BID, AND LASIX 20MG IV DAILY. OTHERWISE, WE WILL CONTINUE WITH CURRENT PLAN OF CARE TODAY. WE WILL FOLLOW UP WITH AM LABS AND CONTINUE TO MONITOR. TIME SPENT ON CLINICAL ASSESSMENT, REVIEWING LABS AND IMAGING, DECISION MAKING, AND DOCUMENTATION GREATER THAN 45 MINUTES. - Past Medical Family Social History Past Med/Fam/Surg Hx: No changes since H&P Allergies: Allergies No Known Drug Allergies Allergy (Verified 12/28/18 18:04) - Review of Systems ROS: No change since H&P - Vital Signs and I&O's Vital Signs: Temperature 97.1 F Pulse Rate 62 Respiratory Rate 26 Blood Pressure [Right Arm] 129/66 Blood Pressure [Left Arm] 168/92 Blood Pressure 182/86 O2 Sat by Pulse Oximetry 91 Intake and Output: Intake & Output 08/29/20 08/30/20 08/31/20 09/01/20 11:59 11:59 11:59 11:59 Intake Total 3759 / 3759 3800 / 3800 3399 / 3399 Output Total 1500 / 1500 1725 / 1725 1775 / 1775 Balance 2259 / 2259 2075 / 2075 1624 / 1624 - Physical Exam Oriented: Normal Eyes: Normal Ear: Normal Nose: Normal Throat: Normal Respiratory: Diminished, Wheezes Cardiovascular: Normal : Normal Auscultation: Bowel Sounds: Normal Tenderness: Normal Skin: Normal Musculoskeletal: Normal Psychiatric: Normal Mood Description: Calm Affect: Normal Speech Pattern: Clear, Appropriate - Laboratory and Diagnostics Result Diagrams: 08/31/20 04:05 08/31/20 04:05 Labs: 08/26/20 12:40 Blood Blood Culture - Preliminary 08/26/20 11:40 Blood Blood Culture - Preliminary Laboratory WBC 9.8 X10^3/uL (3.6-10.0) 08/31/20 04:05 RBC 4.01 X10^6/uL (4.7-6.0) L 08/31/20 04:05 Hgb 13.1 g/dL (13.5-18.0) L 08/31/20 04:05 Hct 37.5 % (42.0-54.0) L 08/31/20 04:05 MCV 93.5 fL (80.0-100.0) 08/31/20 04:05 MCH 32.7 pg (27.0-34.0) 08/31/20 04:05 MCHC 35.0 g/dL (33.0-35.0) 08/31/20 04:05 RDW 13.5 % (11.6-16.5) 08/31/20 04:05 Plt Count 290 X10^3/uL (150.0-450.0) 08/31/20 04:05 Plt Count Comment Adequate (ADEQUATE) 08/31/20 04:05 MPV 7.9 fL (7.4-11.0) 08/31/20 04:05 Neut % (Auto) 88.2 % (42.0-75.0) H 08/31/20 04:05 Lymph % (Auto) 5.5 % (21.0-51.0) L 08/31/20 04:05 [place] % (Auto) 5.6 % (0.0-13.0) 08/31/20 04:05 Eos % (Auto) 0.0 % (0.9-2.9) L 08/31/20 04:05 Baso % (Auto) 0.7 % (0.2-1.0) 08/31/20 04:05 Neut # (Auto) 8.6 x10^3/uL (2.2-4.8) H 08/31/20 04:05 Lymph # (Auto) 0.5 X10^3/uL (1.3-2.9) L 08/31/20 04:05 [place] # (Auto) 0.5 x10^3/uL (0.3-0.8) 08/31/20 04:05 Eos # (Auto) 0.0 x10^3/uL (0.0-0.2) 08/31/20 04:05 Baso # (Auto) 0.1 X10^3/uL (0.0-0.1) 08/31/20 04:05 Absolute Nucleated RBC 0.0 /100WBC 08/31/20 04:05 Total Counted 100 08/31/20 04:05 Neutrophils % (Manual) 86 % (39-76) H 08/31/20 04:05 Band Neutrophils % 1 % (0-10) 08/31/20 04:05 Lymphocytes % (Manual) 7 % (13-43) L 08/31/20 04:05 Monocytes % (Manual) 6 % (4-9) 08/31/20 04:05 Plt Morphology Comment Normal (NORMAL) 08/31/20 04:05 RBC Morphology Normal (NORMAL) 08/31/20 04:05 D-Dimer 0.72 ug/ml (0.0-0.57) H* 08/27/20 04:15 Sample Site Rrad 08/31/20 05:04 ABG pH 7.490 (7.35-7.45) H 08/31/20 05:04 ABG pCO2 37.0 mmHg (35.0-45.0) 08/31/20 05:04 ABG pO2 59.0 mmHg (80.0-100.0) L 08/31/20 05:04 ABG HCO3 28.2 mmol/L (22-26) H 08/31/20 05:04 ABG O2 Saturation 92.0 % (90-100) 08/31/20 05:04 ABG Base Excess 4.7 mmol/L (-2.0-2.0) H 08/31/20 05:04 Farzad Test Pos 08/31/20 05:04 A-a Gradient 123.0 mmHg 08/31/20 05:04 FiO2 32.0 08/31/20 05:04 Blood Gas Comments Ulises abg well-mtf 08/31/20 05:04 Sodium 142 mmol/L (136-145) 08/31/20 04:05 Corrected Sodium 150 mmol/L (136-145) H 08/31/20 04:05 Potassium 4.3 mmol/L (3.5-5.1) 08/31/20 04:05 Chloride 107 mmol/L (98-107) 08/31/20 04:05 Carbon Dioxide 24.0 mmol/L (21-32) 08/31/20 04:05 BUN 43 mg/dL (7-18) H 08/31/20 04:05 Creatinine 1.19 mg/dL (0.70-1.30) 08/31/20 04:05 Est GFR (MDRD) Af Amer > 60 (>60) 08/31/20 04:05 Est GFR (MDRD) Non-Af > 60 (>60) 08/31/20 04:05 Glucose 419 mg/dL (65-99) H 08/31/20 04:05 Lactic Acid 1.6 mmol/L (0.4-2.0) 08/26/20 11:40 Calcium 9.0 mg/dL (8.5-10.1) 08/31/20 04:05 Corrected Calcium 10.0 mg/dL (8.5-10.1) 08/31/20 04:05 Magnesium 2.5 mg/dL (1.7-2.9) 08/29/20 04:30 Ferritin 647 ng/mL (26-388) H 08/31/20 04:05 Total Bilirubin 0.60 mg/dL (0.2-1.0) 08/31/20 04:05 AST 45 Units/L (15-37) H 08/31/20 04:05 ALT 90 Units/L (12-78) H 08/31/20 04:05 Alkaline Phosphatase 53 Units/L (46-116) 08/31/20 04:05 Creatine Kinase 215 Units/L (39-308) 08/27/20 04:15 CK-MB (CK-2) < 1.0 ng/mL (0-4.0) 08/27/20 04:15 CK/CKMB % Calc 0.5 % (<4) 08/27/20 04:15 Troponin I < 0.02 ng/mL (0-1.5) 08/27/20 04:15 C-Reactive Protein 24.20 mg/L (0-3.0) H 08/31/20 04:05 B-Natriuretic Peptide 100 pg/mL (0-79) H 08/29/20 23:05 Total Protein 5.9 g/dL (6.4-8.2) L 08/31/20 04:05 Albumin 2.7 g/dL (3.4-5.0) L 08/31/20 04:05 Globulin 3.2 g/dL (2.5-4.5) 08/31/20 04:05 Albumin/Globulin Ratio 0.8 Ratio (1.1-2.1) L 08/31/20 04:05 Influenza Type A (PCR) Negative (NEGATIVE) 08/27/20 13:15 Influenza Type B (PCR) Negative (NEGATIVE) 08/27/20 13:15 SARS CoV-2 RNA Rapid TONY Positive (NEGATIVE) A 08/26/20 15:50 Blood Type A POSITIVE 08/27/20 10:02 - Plan (1) Pneumonia due to COVID-19 virus Status: Acute Plan: NORMAL SALINE AT 75 ML/HR, REMDESIVIR 100MG IV DAILY, ZOSYN 3.375G IV TID, SOLU-MEDROL 80MG IV Q8H, DUONEBS QID, PULMICORT NEBS BID, TUSSIONEX 5ML PO Q12H PRN, LOVENOX 120MG SC BID, ROBITUSSIN DM 10 ML PO QID, VSL #3 2 CAPS PO DAILY, TRICOR 160MG PO DAILY, ZINC SULFATE 220MG PO BID. SUPPLEMENTAL OXYGEN (2) CHF (congestive heart failure) Status: Acute Qualifiers: Heart failure type: unspecified Heart failure chronicity: unspecified Qualified Code(s): I50.9 - Heart failure, unspecified (3) Hypoxia Status: Acute (4) Respiratory distress Status: Acute
[2020-08-31] MEDS: VASOTEC INJ 2.5 MG VIAL IVP SCH (18:27)
[2020-08-31] MEDS: ZOCOR TAB 20 MG PO SCH (20:21)
[2020-09-01] MEDS: VASOTEC INJ 2.5 MG VIAL IVP SCH ×5 (01:45→22:00)
[2020-09-01] MEDS: ZOSYN VIAL 3.375 GRAMS 3.375 G in NS 100 ML IV + SPIKE MINIBAG* 100 ML IV SCH ×3 (05:00→22:00)
[2020-09-01] MEDS: SOLU-Medrol 40 MG VIAL IVP SCH ×3 (05:00→21:00)
[2020-09-01 05:45] LABS: ALANINE AMINOTRANSFERASE 79 Units/L (12-78); ALBUMIN 2.5 g/dL (3.4-5.0); ALKALINE PHOSPHATASE 58 Units/L (46-116); ASPARTATE AMINO TRANSFERASE 26 Units/L (15-37); BLOOD UREA NITROGEN 42 mg/dL (7-18); CALCIUM 8.5 mg/dL (8.5-10.1); CARBON DIOXIDE 27.5 mmol/L (21-32); CHLORIDE 107 mmol/L (98-107); COR CA(FOR HYPOALB) 9.7 mg/dL (8.5-10.1); COR NA(FOR HYPERGLY) 150 mmol/L (136-145); CREATININE 1.21 mg/dL (0.70-1.30); SODIUM 141 mmol/L (136-145); TOTAL PROTEIN 5.7 g/dL (6.4-8.2); eGFR NON BLACK RACES > 60 (>60)
[2020-09-01 06:03] LABS: BASOPHILS % (AUTO) 0.2 % (0.2-1.0); HEMATOCRIT 38.5 % (42.0-54.0); HEMOGLOBIN 13.1 g/dL (13.5-18.0); LYMPHOCYTES # (AUTO) 0.6 X10^3/uL (1.3-2.9); LYMPHOCYTES % (AUTO) 7.3 % (21.0-51.0); MEAN CORPUSCULAR HEMOGLOBIN 32.3 pg (27.0-34.0); MEAN CORPUSCULAR VOLUME 94.9 fL (80.0-100.0); MEAN PLATELET VOLUME 8.4 fL (7.4-11.0); MONOCYTES # (AUTO) 0.3 x10^3/uL (0.3-0.8); MONOCYTES % (AUTO) 3.9 % (0.0-13.0); NEUTROPHILS # (AUTO) 7.9 x10^3/uL (2.2-4.8); NEUTROPHILS % (AUTO) 88.6 % (42.0-75.0); PLATELET COUNT 286 X10^3/uL (150.0-450.0); RED BLOOD COUNT 4.06 X10^6/uL (4.7-6.0); RED CELL DISTRIBUTION WIDTH 13.3 % (11.6-16.5); WHITE BLOOD COUNT 8.9 X10^3/uL (3.6-10.0)
[2020-09-01] MEDS: NS 1000 ML 1,000 ML IV SCH ×3 (06:22→21:02)
[2020-09-01 06:40] LABS: BAND NEUTROPHILS % 3 % (0-10); PLATELET MORPHOLOGY COMMENT NORMAL (NORMAL)
[2020-09-01] MEDS: LOVENOX INJ 100 MG SYR SC SCH ×2 (08:39→22:00)
[2020-09-01] MEDS: APRESOLINE TAB 25 MG PO SCH ×2 (08:39→21:00)
[2020-09-01] MEDS: REMDESIVIR 100 MG in NS 250 ML IV 250 ML IV SCH (08:40)
[2020-09-01] MEDS: TRICOR TAB 160 MG PO SCH (08:41)
[2020-09-01] MEDS: ZyrTEC TAB 10 MG PO SCH (08:41)
[2020-09-01] MEDS: ROBITUSSIN DM PO SCH ×4 (08:41→21:00)
[2020-09-01] MEDS: VITAMIN D3 125 mcg (5,000 UNITS) PO SCH (08:42)
[2020-09-01] MEDS: VSL#3 PO SCH (08:42)
[2020-09-01] MEDS: ZESTRIL TAB 40 MG PO SCH ×2 (08:42→21:00)
[2020-09-01] MEDS: ZINC SULFATE PO SCH ×2 (08:43→21:00)
[2020-09-01] MEDS: PULMICORT NEB TX 0.5 MG NEB SCH ×2 (09:25→20:50)
[2020-09-01] MEDS: DUONEB 0.5 MG/3 MG (3 mL) NEB SCH ×4 (09:25→20:50)
[2020-09-01] MEDS: CATAPRES-TTS-2 TD SCH (10:43)
[2020-09-01] MEDS: SNACK - Diabetic Appropriate PO SCH (20:00)
[2020-09-01] MEDS: ZOCOR TAB 20 MG PO SCH (21:00)
[2020-09-01] MEDS ORDERED: LOVENOX INJ 100 MG SYR SC ONE (21:08)
[2020-09-01] MEDS: HumuLIN R SUBCUT PRN (22:38)
[2020-09-02] MEDS: VASOTEC INJ 2.5 MG VIAL IVP SCH ×4 (04:15→22:00)
[2020-09-02 05:31] LABS: BASOPHILS % (AUTO) 0.2 % (0.2-1.0); HEMOGLOBIN 13.2 g/dL (13.5-18.0); LYMPHOCYTES # (AUTO) 0.6 X10^3/uL (1.3-2.9); MEAN CORPUSCULAR HEMOGLOBIN 31.8 pg (27.0-34.0); MEAN CORPUSCULAR HGB CONC 33.8 g/dL (33.0-35.0); MEAN CORPUSCULAR VOLUME 93.8 fL (80.0-100.0); MEAN PLATELET VOLUME 8.5 fL (7.4-11.0); MONOCYTES # (AUTO) 0.4 x10^3/uL (0.3-0.8); MONOCYTES % (AUTO) 3.6 % (0.0-13.0); NEUTROPHILS # (AUTO) 9.4 x10^3/uL (2.2-4.8); NEUTROPHILS % (AUTO) 90.2 % (42.0-75.0); PLATELET COUNT 303 X10^3/uL (150.0-450.0); RED BLOOD COUNT 4.16 X10^6/uL (4.7-6.0); RED CELL DISTRIBUTION WIDTH 13.5 % (11.6-16.5); WHITE BLOOD COUNT 10.5 X10^3/uL (3.6-10.0)
[2020-09-02 05:54] LABS: ALANINE AMINOTRANSFERASE 71 Units/L (12-78); ALBUMIN 2.5 g/dL (3.4-5.0); ALKALINE PHOSPHATASE 66 Units/L (46-116); ASPARTATE AMINO TRANSFERASE 19 Units/L (15-37); BLOOD UREA NITROGEN 32 mg/dL (7-18); CALCIUM 8.8 mg/dL (8.5-10.1); CARBON DIOXIDE 24.3 mmol/L (21-32); CHLORIDE 106 mmol/L (98-107); COR NA(FOR HYPERGLY) 147 mmol/L (136-145); CREATININE 1.26 mg/dL (0.70-1.30); SODIUM 140 mmol/L (136-145); TOTAL PROTEIN 5.6 g/dL (6.4-8.2); eGFR NON BLACK RACES > 60 (>60)
[2020-09-02 06:14] LABS: BAND NEUTROPHILS % 6 % (0-10); PLATELET MORPHOLOGY COMMENT NORMAL (NORMAL)
[2020-09-02] MEDS: ZOSYN VIAL 3.375 GRAMS 3.375 G in NS 100 ML IV + SPIKE MINIBAG* 100 ML IV SCH ×3 (06:16→22:00)
[2020-09-02] MEDS: HumuLIN R SUBCUT PRN ×4 (06:17→22:04)
[2020-09-02] MEDS: PULMICORT NEB TX 0.5 MG NEB SCH ×2 (10:10→20:45)
[2020-09-02] MEDS: VSL#3 PO SCH (10:10)
[2020-09-02] MEDS: DUONEB 0.5 MG/3 MG (3 mL) NEB SCH ×4 (10:10→20:45)
[2020-09-02] MEDS: ZINC SULFATE PO SCH ×2 (10:10→21:25)
[2020-09-02] MEDS: APRESOLINE TAB 25 MG PO SCH ×2 (10:11→21:25)
[2020-09-02] MEDS: REMDESIVIR 100 MG in NS 250 ML IV 250 ML IV SCH (10:11)
[2020-09-02] MEDS: ROBITUSSIN DM PO SCH ×4 (10:12→21:25)
[2020-09-02] MEDS: ZyrTEC TAB 10 MG PO SCH (10:12)
[2020-09-02] MEDS: ZESTRIL TAB 40 MG PO SCH ×2 (10:21→21:25)
[2020-09-02] MEDS: VITAMIN D3 125 mcg (5,000 UNITS) PO SCH (10:22)
[2020-09-02 11:06] LABS: ABG BASE EXCESS 2.9 mmol/L (-2.0-2.0); ABG HCO3 25.5 mmol/L (22-26)
[2020-09-02 11:07] LABS: ABG ALLEN TEST POS
[2020-09-02] MEDS: TRICOR TAB 160 MG PO SCH (11:13)
[2020-09-02] MEDS: LOVENOX INJ 100 MG SYR SC SCH ×2 (11:13→21:25)
[2020-09-02] MEDS: LASIX IVP SCH ×2 (12:27→17:39)
--- NOTE | 2020-09-02 12:49 | RAD ---
EXAM: CHEST X-RAYHISTORY: CHF. Pneumonia. Respiratory distress.TECHNIQUE: AP chest x-ray dated 09/02/2020 at 10:58 AM.COMPARISON: CXR dated August 31, [address] dated August 27, 2020.FINDINGS:There is mild cardiomegaly (stable). There is interval progression of bilateral patchy parenchymal infiltrates, especially in the left middle and lower lung bansal, in keeping with acute on Covid pneumonia and/or CHF/volume overload in the appropriate clinical setting.There is no discernible pleural effusion, or pneumothorax seen. The visualized bony structures are within normal limits.IMPRESSION:1. Interval progression of bilateral patchy parenchymal infiltrates, especially in the left middle and lower lung bansal, in keeping with acute on Covid pneumonia and/or CHF/volume overload in the appropriate clinical setting.2. Recommend clinical correlation and appropriate follow up evaluation to ensure complete clearance.Electronically signed by: Ele Carter (Sep 02, 2020 12:46:55)
[2020-09-02 15:54] LABS: ABG ALLEN TEST POS; ABG BASE EXCESS 5.8 mmol/L (-2.0-2.0)
[2020-09-02] MEDS: SNACK - Diabetic Appropriate PO SCH (21:00)
[2020-09-02] MEDS: ZOCOR TAB 20 MG PO SCH (21:25)
[2020-09-02] MEDS: NS 1000 ML 1,000 ML IV SCH (21:57)
[2020-09-03] MEDS: VASOTEC INJ 2.5 MG VIAL IVP SCH ×5 (03:50→21:02)
[2020-09-03 05:22] LABS: ABG BASE EXCESS 9.6 mmol/L (-2.0-2.0); ABG HCO3 32.1 mmol/L (22-26)
[2020-09-03 05:23] LABS: ABG ALLEN TEST POS
[2020-09-03 05:57] LABS: ALANINE AMINOTRANSFERASE 56 Units/L (12-78); ALBUMIN 2.3 g/dL (3.4-5.0); ALKALINE PHOSPHATASE 54 Units/L (46-116); ASPARTATE AMINO TRANSFERASE 22 Units/L (15-37); BLOOD UREA NITROGEN 27 mg/dL (7-18); CALCIUM 8.5 mg/dL (8.5-10.1); CARBON DIOXIDE 27.5 mmol/L (21-32); CHLORIDE 101 mmol/L (98-107); COR CA(FOR HYPOALB) 9.9 mg/dL (8.5-10.1); COR NA(FOR HYPERGLY) 141 mmol/L (136-145); CREATININE 1.21 mg/dL (0.70-1.30); SODIUM 137 mmol/L (136-145); TOTAL PROTEIN 5.4 g/dL (6.4-8.2); eGFR NON BLACK RACES > 60 (>60)
[2020-09-03] MEDS: ZOSYN VIAL 3.375 GRAMS 3.375 G in NS 100 ML IV + SPIKE MINIBAG* 100 ML IV SCH ×3 (06:05→21:01)
[2020-09-03 06:08] LABS: BASOPHILS % (AUTO) 0.2 % (0.2-1.0); EOSINOPHILS % (AUTO) 0.3 % (0.9-2.9); HEMATOCRIT 38.6 % (42.0-54.0); LYMPHOCYTES % (AUTO) 7.9 % (21.0-51.0); MEAN CORPUSCULAR HEMOGLOBIN 31.7 pg (27.0-34.0); MEAN CORPUSCULAR HGB CONC 33.6 g/dL (33.0-35.0); MEAN CORPUSCULAR VOLUME 94.4 fL (80.0-100.0); MEAN PLATELET VOLUME 8.1 fL (7.4-11.0); MONOCYTES # (AUTO) 0.3 x10^3/uL (0.3-0.8); MONOCYTES % (AUTO) 2.7 % (0.0-13.0); NEUTROPHILS # (AUTO) 11.4 x10^3/uL (2.2-4.8); NEUTROPHILS % (AUTO) 88.9 % (42.0-75.0); PLATELET COUNT 289 X10^3/uL (150.0-450.0); RED BLOOD COUNT 4.09 X10^6/uL (4.7-6.0); RED CELL DISTRIBUTION WIDTH 13.4 % (11.6-16.5); WHITE BLOOD COUNT 12.8 X10^3/uL (3.6-10.0)
[2020-09-03] MEDS: HumuLIN R SUBCUT PRN ×2 (06:08→23:20)
[2020-09-03 06:52] LABS: PLATELET MORPHOLOGY COMMENT NORMAL (NORMAL)
--- NOTE | 2020-09-03 08:14 | RAD ---
HISTORYCOVID, SOBSTUDYCHEST, 1 [id number] is midlineThere is stable mild cardiomegaly. There are bilateral alveolar and reticular infiltrates with a more confluent zone in the periphery of the left lung. There has been interval improvement of the left base ground-glass radiopacityNo significant changed in the right. There is no effusions or pneumothoraxIMPRESSIONSlightly interval improvement of left lower lobe patchy alveolar radiopacities with a persistent confluent zone in the left midlung zone laterally. Unchanged patchy reticular alveolar radiopacities in the right lung.Electronically signed by: Loida Diaz (Sep 03, 2020 08:13:30)
--- NOTE | 2020-09-03 08:41 | PCM.PROG ---
Progress Note - Progress Note for Day of Date of Exam: 08/31/20 - Subjective Subjective: IS BEING TREATED FOR PNEUMONIA DUE TO COVID-19, CONGESTIVE HEART FAILURE, AND HYPOXIA. TODAY, HE IS ALERT AND ORIENTED, LYING IN BED ON MORNING ROUNDS. HE CONTINUES WITH COMPLAINTS OF COUGH, SHORTNESS OF BREATH, AND GENERALIZED WEAKNESS. HE REPORTS THAT SHORTNESS OF BREATH IS WORSE TODAY COMPARED TO YESTERDAY. HE CURRENTLY UTILIZING HIS CPAP. HIS OXYGEN SATURATIONS HAVE BEEN 88-91% ON THE CPAP. ON EXAMINATION, HEART IS REGULAR IN RATE AND RHYTHM. BILATERAL LUNGS ARE NOTED WITH SCATTERED WHEEZING THROUGHOUT. ABDOMEN IS ROUND, SOFT, AND NON-TENDER WITH NORMAL BOWEL SOUNDS NOTED IN ALL QUADRANTS. HIS VITALS THIS MORNING ARE: 98.1-63-34-88%cpap-182/86. LABS WERE OBTAINED. ABNORMAL LAB VALUES INCLUDE THE FOLLOWING: RBC 4.01, HGB 13.1, HCT 37.5, BUN 43, GLUCOSE 419, FERRITIN 647, AST 45, ALT 902, CRP 24.20, TOTAL PROTEIN 5.9, ALBUMIN 2.7. AN ABG WAS REPEATED TO DAY AND REVEALED: PH 7.490, PC02 37, P02 59, HC03 28.2, 02 SAT 92, FI02 32. BLOOD CULTURES ARE PENDING. CHEST XRAY REVEALED: Mild worsening infiltrate in the right lung base compared to yesterdays film. HE HAS RECEIVED ONE UNIT OF CONVALESCENT PLASMA SINCE ADMISSION. HE IS CURRENLY RECEIVING NORMAL SALINE AT 75 ML/HR, REMDESIVIR 100MG IV DAILY, ZOSYN 3.375G IV TID, SOLU-MEDROL 80MG IV Q8H, DUONEBS QID, PULMICORT NEBS BID, TUSSIONEX 5ML PO Q12H PRN, LOVENOX 120MG SC BID, ROBITUSSIN DM 10 ML PO QID, VSL #3 2 CAPS PO DAILY, TRICOR 160MG PO DAILY, ZINC SULFATE 220MG PO BID, AND LASIX 20MG IV DAILY. OTHERWISE, WE WILL CONTINUE WITH CURRENT PLAN OF CARE TODAY. WE WILL FOLLOW UP WITH AM LABS AND CONTINUE TO MONITOR. TIME SPENT ON CLINICAL ASSESSMENT, REVIEWING LABS AND IMAGING, DECISION MAKING, AND DOCUMENTATION GREATER THAN 45 MINUTES. - Past Medical Family Social History Past Med/Fam/Surg Hx: No changes since H&P Allergies: Allergies No Known Drug Allergies Allergy (Verified 12/28/18 18:04) - Review of Systems ROS: No change since H&P - Vital Signs and I&O's Vital Signs: Temperature 99.5 F Pulse Rate 69 Respiratory Rate 28 Blood Pressure [Right Arm] 149/70 Blood Pressure [Left Arm] 168/92 Blood Pressure 133/64 O2 Sat by Pulse Oximetry 89 Intake and Output: Intake & Output 08/31/20 09/01/20 09/02/20 09/03/20 11:59 11:59 11:59 11:59 Intake Total 3399 / 3399 3498 / 3498 4018 / 4018 2255 / 2255 Output Total 1775 / 1775 1275 / 1275 2550 / 2550 3050 / 3050 Balance 1624 / 1624 2223 / 2223 1468 / 1468 -795 / -795 - Physical Exam Oriented: Normal Eyes: Normal Ear: Normal Nose: Normal Throat: Normal Respiratory: Diminished, Wheezes Cardiovascular: Normal : Normal Auscultation: Bowel Sounds: Normal Palpation: Normal Tenderness: Normal Skin: Normal Musculoskeletal: Normal Psychiatric: Normal Mood Description: Calm Affect: Normal Speech Pattern: Clear, Appropriate - Laboratory and Diagnostics Result Diagrams: 09/03/20 04:53 09/03/20 04:53 Labs: 08/26/20 12:40 Blood Blood Culture - Final 08/26/20 11:40 Blood Blood Culture - Final Laboratory WBC 12.8 X10^3/uL (3.6-10.0) H 09/03/20 04:53 RBC 4.09 X10^6/uL (4.7-6.0) L 09/03/20 04:53 Hgb 13.0 g/dL (13.5-18.0) L 09/03/20 04:53 Hct 38.6 % (42.0-54.0) L 09/03/20 04:53 MCV 94.4 fL (80.0-100.0) 09/03/20 04:53 MCH 31.7 pg (27.0-34.0) 09/03/20 04:53 MCHC 33.6 g/dL (33.0-35.0) 09/03/20 04:53 RDW 13.4 % (11.6-16.5) 09/03/20 04:53 Plt Count 289 X10^3/uL (150.0-450.0) 09/03/20 04:53 Plt Count Comment Adequate (ADEQUATE) 09/03/20 04:53 MPV 8.1 fL (7.4-11.0) 09/03/20 04:53 Neut % (Auto) 88.9 % (42.0-75.0) H 09/03/20 04:53 Lymph % (Auto) 7.9 % (21.0-51.0) L 09/03/20 04:53 [place] % (Auto) 2.7 % (0.0-13.0) 09/03/20 04:53 Eos % (Auto) 0.3 % (0.9-2.9) L 09/03/20 04:53 Baso % (Auto) 0.2 % (0.2-1.0) 09/03/20 04:53 Neut # (Auto) 11.4 x10^3/uL (2.2-4.8) H 09/03/20 04:53 Lymph # (Auto) 1.0 X10^3/uL (1.3-2.9) L 09/03/20 04:53 [place] # (Auto) 0.3 x10^3/uL (0.3-0.8) 09/03/20 04:53 Eos # (Auto) 0.0 x10^3/uL (0.0-0.2) 09/03/20 04:53 Baso # (Auto) 0.0 X10^3/uL (0.0-0.1) 09/03/20 04:53 Absolute Nucleated RBC 0.1 /100WBC 09/03/20 04:53 Total Counted 100 09/03/20 04:53 Neutrophils % (Manual) 83 % (39-76) H 09/03/20 04:53 Band Neutrophils % 6 % (0-10) 09/02/20 04:19 Lymphocytes % (Manual) 13 % (13-43) 09/03/20 04:53 Monocytes % (Manual) 4 % (4-9) 09/03/20 04:53 Plt Morphology Comment Normal (NORMAL) 09/03/20 04:53 RBC Morphology Normal (NORMAL) 09/03/20 04:53 D-Dimer 0.72 ug/ml (0.0-0.57) H* 08/27/20 04:15 Sample Site Rr 09/03/20 05:15 ABG pH 7.570 (7.35-7.45) H* 09/03/20 05:15 ABG pCO2 35.0 mmHg (35.0-45.0) 09/03/20 05:15 ABG pO2 54.0 mmHg (80.0-100.0) L 09/03/20 05:15 ABG HCO3 32.1 mmol/L (22-26) H* 09/03/20 05:15 ABG O2 Saturation 92.0 % (90-100) 09/03/20 05:15 ABG Base Excess 9.6 mmol/L (-2.0-2.0) H 09/03/20 05:15 Farzad Test Pos 09/03/20 05:15 A-a Gradient 487.0 mmHg 09/03/20 05:15 FiO2 82.0 09/03/20 05:15 Blood Gas Comments Ulises well ae 09/03/20 05:15 Sodium 137 mmol/L (136-145) 09/03/20 04:53 Corrected Sodium 141 mmol/L (136-145) 09/03/20 04:53 Potassium 4.2 mmol/L (3.5-5.1) 09/03/20 04:53 Chloride 101 mmol/L (98-107) 09/03/20 04:53 Carbon Dioxide 27.5 mmol/L (21-32) 09/03/20 04:53 BUN 27 mg/dL (7-18) H 09/03/20 04:53 Creatinine 1.21 mg/dL (0.70-1.30) 09/03/20 04:53 Est GFR (MDRD) Af Amer > 60 (>60) 09/03/20 04:53 Est GFR (MDRD) Non-Af > 60 (>60) 09/03/20 04:53 Glucose 253 mg/dL (65-99) H 09/03/20 04:53 POC Glucose (mg/dL) 248 mg/dL (65-99) H 09/03/20 05:21 Hemoglobin A1c 7.8 % 09/01/20 04:25 Lactic Acid 1.6 mmol/L (0.4-2.0) 08/26/20 11:40 Calcium 8.5 mg/dL (8.5-10.1) 09/03/20 04:53 Corrected Calcium 9.9 mg/dL (8.5-10.1) 09/03/20 04:53 Magnesium 2.5 mg/dL (1.7-2.9) 08/29/20 04:30 Ferritin 596 ng/mL (26-388) H 09/03/20 04:53 Total Bilirubin 0.90 mg/dL (0.2-1.0) 09/03/20 04:53 AST 22 Units/L (15-37) 09/03/20 04:53 ALT 56 Units/L (12-78) 09/03/20 04:53 Alkaline Phosphatase 54 Units/L (46-116) 09/03/20 04:53 Creatine Kinase 215 Units/L (39-308) 08/27/20 04:15 CK-MB (CK-2) < 1.0 ng/mL (0-4.0) 08/27/20 04:15 CK/CKMB % Calc 0.5 % (<4) 08/27/20 04:15 Troponin I < 0.02 ng/mL (0-1.5) 08/27/20 04:15 C-Reactive Protein 31.10 mg/L (0-3.0) H 09/03/20 04:53 B-Natriuretic Peptide 100 pg/mL (0-79) H 08/29/20 23:05 Total Protein 5.4 g/dL (6.4-8.2) L 09/03/20 04:53 Albumin 2.3 g/dL (3.4-5.0) L 09/03/20 04:53 Globulin 3.1 g/dL (2.5-4.5) 09/03/20 04:53 Albumin/Globulin Ratio 0.7 Ratio (1.1-2.1) L 09/03/20 04:53 Influenza Type A (PCR) Negative (NEGATIVE) 08/27/20 13:15 Influenza Type B (PCR) Negative (NEGATIVE) 08/27/20 13:15 SARS CoV-2 RNA Rapid TONY Positive (NEGATIVE) A 08/26/20 15:50 Blood Type A POSITIVE 08/27/20 10:02 - Plan (1) Pneumonia due to COVID-19 virus Status: Acute Plan: NORMAL SALINE AT 75 ML/HR, REMDESIVIR 100MG IV DAILY, ZOSYN 3.375G IV TID, SOLU-MEDROL 80MG IV Q8H, DUONEBS QID, PULMICORT NEBS BID, TUSSIONEX 5ML PO Q12H PRN, LOVENOX 120MG SC BID, ROBITUSSIN DM 10 ML PO QID, VSL #3 2 CAPS PO DAILY, TRICOR 160MG PO DAILY, ZINC SULFATE 220MG PO BID. SUPPLEMENTAL OXYGEN (2) CHF (congestive heart failure) Status: Acute Qualifiers: Heart failure type: unspecified Heart failure chronicity: unspecified Q ualified Code(s): I50.9 - Heart failure, unspecified (3) Hypoxia Status: Acute (4) Respiratory distress Status: Acute
[2020-09-03] MEDS: PULMICORT NEB TX 0.5 MG NEB SCH ×3 (08:57→20:30)
[2020-09-03] MEDS: DUONEB 0.5 MG/3 MG (3 mL) NEB SCH ×4 (08:57→20:30)
[2020-09-03] MEDS: TRICOR TAB 160 MG PO SCH (09:15)
[2020-09-03] MEDS: VSL#3 PO SCH (09:15)
[2020-09-03] MEDS: ZINC SULFATE PO SCH ×2 (09:15→20:45)
[2020-09-03] MEDS: REMDESIVIR 100 MG in NS 250 ML IV 250 ML IV SCH (09:15)
[2020-09-03] MEDS: APRESOLINE TAB 25 MG PO SCH ×2 (09:15→20:44)
[2020-09-03] MEDS: ZyrTEC TAB 10 MG PO SCH (09:15)
[2020-09-03] MEDS: LASIX IVP SCH ×2 (09:15→17:40)
[2020-09-03] MEDS: ROBITUSSIN DM PO SCH ×4 (09:15→20:45)
[2020-09-03] MEDS: VITAMIN D3 125 mcg (5,000 UNITS) PO SCH (09:15)
[2020-09-03] MEDS: ZESTRIL TAB 40 MG PO SCH ×2 (09:15→21:01)
[2020-09-03] MEDS: LOVENOX INJ 100 MG SYR SC SCH ×2 (09:59→20:46)
[2020-09-03] MEDS: DECADRON JET NEB (RESP USE) NEB SCH ×2 (10:28→20:29)
[2020-09-03] MEDS: MUCOMYST 20% 200 MG/ML NEB SCH ×2 (10:28→20:29)
[2020-09-03] MEDS: NS 1000 ML 1,000 ML IV SCH ×2 (13:56→16:34)
--- NOTE | 2020-09-03 19:21 | PCM.PROG ---
Progress Note - Progress Note for Day of Date of Exam: 09/03/20 - Subjective Subjective: IS BEING TREATED FOR PNEUMONIA DUE TO COVID-19, CONGESTIVE HEART FAILURE, AND HYPOXIA. TODAY, HE IS ALERT AND ORIENTED, LYING IN BED ON MORNING ROUNDS. HE IS NOTED TO HAVE LABORED BREATHING THIS MORNING. HE CONTINUES WITH COMPLAINTS OF COUGH, SHORTNESS OF BREATH, AND GENERALIZED WEAKNESS. HE REPORTS THAT SHORTNESS OF BREATH IS WORSE TODAY COMPARED TO YESTERDAY. STAFF REPORTS THAT WHEN AMBULATING TO THE BEDSIDE COMMODE THIS MORNING. HIS OXYGEN SATURATIONS DROPPED TO 78% ON ROOM AIR. HE CURRENTLY UTILIZING HEATED HIGH FLOW OXYGEN. HIS OXYGEN SATURATIONS HAVE BEEN 78-92% ON THIS MORNING, DEPENDING ON MOVEMENT. ON EXAMINATION, HEART IS REGULAR IN RATE AND RHYTHM. BILATERAL LUNGS ARE NOTED WITH FINE RALES THROUGHOUT. ABDOMEN IS ROUND, SOFT, AND NON-TENDER WITH NORMAL BOWEL SOUNDS NOTED IN ALL QUADRANTS. HIS VITALS THIS MORNING ARE: 99.2-65-30-89%HHF-139/65. LABS WERE OBTAINED. ABNORMAL LAB VALUES INCLUDE THE FOLLOWING: WBC 12.8, RBC 4.09, HGB 13.0, HCT 38.6, BUN 27, GLUCOSE 253, FERRITIN 596, CRP 31.10, TOTAL PROTEIN 5.4, ALBUMIN 2.3. AN ABG WAS REPEATED TO DAY AND REVEALED: PH 7.570, PC02 35, P02 54, HC03 32.1, 02 SAT 92, FI02 82. BLOOD CULTURES ARE PENDING. CHEST XRAY REVEALED: Slightly interval improvement of left lower lobe patchy alveolar radiopacities with a persistent confluent zone in the left midlung zone laterally. Unchanged patchy reticular alveolar radiopacities in the right lung. HE HAS RECEIVED TWO UNITS OF CONVALESCENT PLASMA SINCE ADMISSION. HE IS CURRENLY RECEIVING NORMAL SALINE AT KVO ML/HR, REMDESIVIR 100MG IV DAILY, ZOSYN 3.375G IV TID, SOLU-MEDROL 80MG IV Q8H, DUONEBS QID, PULMICORT NEBS BID, TUSSIONEX 5ML PO Q12H PRN, LOVENOX 100MG SC BID, ROBITUSSIN DM 10 ML PO QID, VSL #3 2 CAPS PO DAILY, TRICOR 160MG PO DAILY, ZINC SULFATE 220MG PO BI D, A CLONIDINE PATCH, ZYRTEC 10MG PO DAILY, HYDRALAZINE 50MG PO BID, LISINOPRIL 40MG PO BID, AND LASIX 40MG IV Q12H. TODAY, WE WILL PLACE HIM ON THE BIPAP. WE WILL ADD MUCOMYST AND DEXAMETHASONE TO HIS NEB TREATMENTS. OTHERWISE, WE WILL FOLLOW UP WITH AM LABS AND CONTINUE TO MONITOR. TIME SPENT ON CLINICAL ASSESSMENT, REVIEWING LABS AND IMAGING, DECISION MAKING, AND DOCUMENTATION GREATER THAN 45 MINUTES. - Past Medical Family Social History Past Med/Fam/Surg Hx: No changes since H&P Allergies: Allergies No Known Drug Allergies Allergy (Verified 12/28/18 18:04) - Review of Systems ROS: No change since H&P - Vital Signs and I&O's Vital Signs: Temperature 99.0 F Pulse Rate 74 Respiratory Rate 27 Blood Pressure [Right Arm] 149/70 Blood Pressure [Left Arm] 168/92 Blood Pressure 134/84 O2 Sat by Pulse Oximetry 95 Intake and Output: Intake & Output 09/01/20 09/02/20 09/03/20 09/04/20 11:59 11:59 11:59 11:59 Intake Total 3498 / 3498 4018 / 4018 2255 / 2255 1106 / 1106 Output Total 1275 / 1275 2550 / 2550 3050 / 3050 1600 / 1600 Balance 2223 / 2223 1468 / 1468 -795 / -795 -494 / -494 - Physical Exam Oriented: Normal Eyes: Normal Ear: Normal Nose: Normal Throat: Normal Respiratory: Diminished, Wheezes Cardiovascular: Normal : Normal Auscultation: Bowel Sounds: Normal Tenderness: Normal Skin: Normal Musculoskeletal: Normal Psychiatric: Normal Mood Description: Calm Affect: Normal Speech Pattern: Clear, Appropriate - Laboratory and Diagnostics Result Diagrams: 09/03/20 04:53 09/03/20 04:53 Labs: 08/26/20 12:40 Blood Blood Culture - Final 08/26/20 11:40 Blood Blood Culture - Final Laboratory WBC 12.8 X10^3/uL (3.6-10.0) H 09/03/20 04:53 RBC 4.09 X10^6/uL (4.7-6.0) L 09/03/20 04:53 Hgb 13.0 g/dL (13.5-18.0) L 09/03/20 04:53 Hct 38.6 % (42.0-54.0) L 09/03/20 04:53 MCV 94.4 fL (80.0-100.0) 09/03/20 04:53 MCH 31.7 pg (27.0-34.0) 09/03/20 04:53 MCHC 33.6 g/dL (33.0-35.0) 09/03/20 04:53 RDW 13.4 % (11.6-16.5) 09/03/20 04:53 Plt Count 289 X10^3/uL (150.0-450.0) 09/03/20 04:53 Plt Count Comment Adequate (ADEQUATE) 09/03/20 04:53 MPV 8.1 fL (7.4-11.0) 09/03/20 04:53 Neut % (Auto) 88.9 % (42.0-75.0) H 09/03/20 04:53 Lymph % (Auto) 7.9 % (21.0-51.0) L 09/03/20 04:53 [place] % (Auto) 2.7 % (0.0-13.0) 09/03/20 04:53 Eos % (Auto) 0.3 % (0.9-2.9) L 09/03/20 04:53 Baso % (Auto) 0.2 % (0.2-1.0) 09/03/20 04:53 Neut # (Auto) 11.4 x10^3/uL (2.2-4.8) H 09/03/20 04:53 Lymph # (Auto) 1.0 X10^3/uL (1.3-2.9) L 09/03/20 04:53 [place] # (Auto) 0.3 x10^3/uL (0.3-0.8) 09/03/20 04:53 Eos # (Auto) 0.0 x10^3/uL (0.0-0.2) 09/03/20 04:53 Baso # (Auto) 0.0 X10^3/uL (0.0-0.1) 09/03/20 04:53 Absolute Nucleated RBC 0.1 /100WBC 09/03/20 04:53 Total Counted 100 09/03/20 04:53 Neutrophils % (Manual) 83 % (39-76) H 09/03/20 04:53 Band Neutrophils % 6 % (0-10) 09/02/20 04:19 Lymphocytes % (Manual) 13 % (13-43) 09/03/20 04:53 Monocytes % (Manual) 4 % (4-9) 09/03/20 04:53 Plt Morphology Comment Normal (NORMAL) 09/03/20 04:53 RBC Morphology Normal (NORMAL) 09/03/20 04:53 D-Dimer 0.72 ug/ml (0.0-0.57) H* 08/27/20 04:15 Sample Site Rr 09/03/20 05:15 ABG pH 7.570 (7.35-7.45) H* 09/03/20 05:15 ABG pCO2 35.0 mmHg (35.0-45.0) 09/03/20 05:15 ABG pO2 54.0 mmHg (80.0-100.0) L 09/03/20 05:15 ABG HCO3 32.1 mmol/L (22-26) H* 09/03/20 05:15 ABG O2 Saturation 92.0 % (90-100) 09/03/20 05:15 ABG Base Excess 9.6 mmol/L (-2.0-2.0) H 09/03/20 05:15 Farzad Test Pos 09/03/20 05:15 A-a Gradient 487.0 mmHg 09/03/20 05:15 FiO2 82.0 09/03/20 05:15 Blood Gas Comments Ulises well ae 09/03/20 05:15 Sodium 137 mmol/L (136-145) 09/03/20 04:53 Corrected Sodium 141 mmol/L (136-145) 09/03/20 04:53 Potassium 4.2 mmol/L (3.5-5.1) 09/03/20 04:53 Chloride 101 mmol/L (98-107) 09/03/20 04:53 Carbon Dioxide 27.5 mmol/L (21-32) 09/03/20 04:53 BUN 27 mg/dL (7-18) H 09/03/20 04:53 Creatinine 1.21 mg/dL (0.70-1.30) 09/03/20 04:53 Est GFR (MDRD) Af Amer > 60 (>60) 09/03/20 04:53 Est GFR (MDRD) Non-Af > 60 (>60) 09/03/20 04:53 Glucose 253 mg/dL (65-99) H 09/03/20 04:53 POC Glucose (mg/dL) 220 mg/dL (65-99) H 09/03/20 16:52 Hemoglobin A1c 7.8 % 09/01/20 04:25 Lactic Acid 1.6 mmol/L (0.4-2.0) 08/26/20 11:40 Calcium 8.5 mg/dL (8.5-10.1) 09/03/20 04:53 Corrected Calcium 9.9 mg/dL (8.5-10.1) 09/03/20 04:53 Magnesium 2.5 mg/dL (1.7-2.9) 08/29/20 04:30 Ferritin 596 ng/mL (26-388) H 09/03/20 04:53 Total Bilirubin 0.90 mg/dL (0.2-1.0) 09/03/20 04:53 AST 22 Units/L (15-37) 09/03/20 04:53 ALT 56 Units/L (12-78) 09/03/20 04:53 Alkaline Phosphatase 54 Units/L (46-116) 09/03/20 04:53 Creatine Kinase 215 Units/L (39-308) 08/27/20 04:15 CK-MB (CK-2) < 1.0 ng/mL (0-4.0) 08/27/20 04:15 CK/CKMB % Calc 0.5 % (<4) 08/27/20 04:15 Troponin I < 0.02 ng/mL (0-1.5) 08/27/20 04:15 C-Reactive Protein 31.10 mg/L (0-3.0) H 09/03/20 04:53 B-Natriuretic Peptide 100 pg/mL (0-79) H 08/29/20 23:05 Total Protein 5.4 g/dL (6.4-8.2) L 09/03/20 04:53 Albumin 2.3 g/dL (3.4-5.0) L 09/03/20 04:53 Globulin 3.1 g/dL (2.5-4.5) 09/03/20 04:53 Albumin/Globulin Ratio 0.7 Ratio (1.1-2.1) L 09/03/20 04:53 Influenza Type A (PCR) Negative (NEGATIVE) 08/27/20 13:15 Influenza Type B (PCR) Negative (NEGATIVE) 08/27/20 13:15 SARS CoV-2 RNA Rapid TONY Positive (NEGATIVE) A 08/26/20 15:50 Blood Type A POSITIVE 08/27/20 10:02 - Plan (1) Pneumonia due to COVID-19 virus Status: Acute Plan: NORMAL SALINE AT KVO ML/HR, REMDESIVIR 100MG IV DAILY, ZOSYN 3.375G IV TID, SOLU-MEDROL 80MG IV Q8H, DUONEBS QID, PULMICORT NEBS BID, TUSSIONEX 5ML PO Q12H PRN, LOVENOX 100MG SC BID, ROBITUSSIN DM 10 ML PO QID, VSL #3 2 CAPS PO DAILY, TRICOR 160MG PO DAILY, ZINC SULFATE 220MG PO BID, A CLONIDINE PATCH, ZYRTEC 10MG PO DAILY, HYDRALAZINE 50MG PO BID, LISINOPRIL 40MG PO BID, AND LASIX 40MG IV Q12H. BIPAP (2) CHF (congestive heart failure) Status: Acute Qualifiers: Heart failure type: unspecified Heart failure chronicity: unspecified Qualified Code(s): I50.9 - Heart failure, unspecified (3) Hypoxia Status: Acute (4) Respiratory distress Status: Acute
[2020-09-03] MEDS: ZOCOR TAB 20 MG PO SCH (20:45)
[2020-09-03] MEDS: SNACK - Diabetic Appropriate PO SCH (21:00)
[2020-09-03] MEDS: SOLU-Medrol 40 MG VIAL IVP SCH (21:23)
[2020-09-04] MEDS: VASOTEC INJ 2.5 MG VIAL IVP SCH ×4 (03:19→21:16)
[2020-09-04 04:49] LABS: ABG BASE EXCESS 8.7 mmol/L (-2.0-2.0)
[2020-09-04 04:50] LABS: ABG ALLEN TEST POS; ABG HCO3 32.8 mmol/L (22-26)
[2020-09-04] MEDS: SOLU-Medrol 40 MG VIAL IVP SCH ×3 (05:05→21:15)
[2020-09-04] MEDS: ZOSYN VIAL 3.375 GRAMS 3.375 G in NS 100 ML IV + SPIKE MINIBAG* 100 ML IV SCH ×3 (05:05→21:15)
[2020-09-04] MEDS: HumuLIN R SUBCUT PRN ×2 (05:29→12:30)
[2020-09-04 06:11] LABS: BASOPHILS % (AUTO) 0.1 % (0.2-1.0); EOSINOPHILS % (AUTO) 0.2 % (0.9-2.9); HEMATOCRIT 36.7 % (42.0-54.0); HEMOGLOBIN 12.4 g/dL (13.5-18.0); LYMPHOCYTES # (AUTO) 0.4 X10^3/uL (1.3-2.9); LYMPHOCYTES % (AUTO) 4.7 % (21.0-51.0); MEAN CORPUSCULAR HEMOGLOBIN 32.2 pg (27.0-34.0); MEAN CORPUSCULAR HGB CONC 33.8 g/dL (33.0-35.0); MEAN CORPUSCULAR VOLUME 95.3 fL (80.0-100.0); MEAN PLATELET VOLUME 8.7 fL (7.4-11.0); MONOCYTES # (AUTO) 0.2 x10^3/uL (0.3-0.8); MONOCYTES % (AUTO) 2.1 % (0.0-13.0); NEUTROPHILS % (AUTO) 92.9 % (42.0-75.0); PLATELET COUNT 204 X10^3/uL (150.0-450.0); RED BLOOD COUNT 3.85 X10^6/uL (4.7-6.0); RED CELL DISTRIBUTION WIDTH 13.4 % (11.6-16.5); WHITE BLOOD COUNT 8.6 X10^3/uL (3.6-10.0)
[2020-09-04 06:24] LABS: ALANINE AMINOTRANSFERASE 47 Units/L (12-78); ALBUMIN 2.1 g/dL (3.4-5.0); ALKALINE PHOSPHATASE 47 Units/L (46-116); ASPARTATE AMINO TRANSFERASE 19 Units/L (15-37); BLOOD UREA NITROGEN 33 mg/dL (7-18); CALCIUM 8.2 mg/dL (8.5-10.1); CARBON DIOXIDE 28.6 mmol/L (21-32); CHLORIDE 98 mmol/L (98-107); COR CA(FOR HYPOALB) 9.7 mg/dL (8.5-10.1); COR NA(FOR HYPERGLY) 139 mmol/L (136-145); CREATININE 1.04 mg/dL (0.70-1.30); SODIUM 135 mmol/L (136-145); TOTAL PROTEIN 5.4 g/dL (6.4-8.2); eGFR NON BLACK RACES > 60 (>60)
--- NOTE | 2020-09-04 07:04 | RAD ---
HISTORYShortness of breathSTUDYChest AP [id number]/2020FINDINGSThe heart is enlarged. No congestive heart failure is noted. The antonella are normal. Bilateral predominantly peripheral interstitial ground-glass and alveolar infiltrates are unchanged. No pleural effusions are identified. There appears to be some subcutaneous emphysema in the right neck. The etiology of this is unclear at this time as no definite pneumothorax or pneumomediastinum is identified. Follow-up of this finding is recommended.IMPRESSIONNo change bilateral infiltratesNo change mild cardiomegaly without congestive heart failureSubcutaneous emphysema in the right neck of as yet uncertain etiology.Electronically signed by: BRAXTON SHANKAR (Sep 04, 2020 07:02:41)
[2020-09-04 07:19] LABS: BAND NEUTROPHILS % 7 % (0-10); PLATELET MORPHOLOGY COMMENT NORMAL (NORMAL)
[2020-09-04] MEDS ORDERED: MUCOMYST (RESPIRATORY USE ONLY) ONE (09:02)
[2020-09-04] MEDS: DECADRON JET NEB (RESP USE) NEB SCH ×3 (09:18→20:50)
[2020-09-04] MEDS: ROBITUSSIN DM PO SCH ×4 (09:19→21:17)
[2020-09-04] MEDS: ZINC SULFATE PO SCH ×2 (09:19→21:15)
[2020-09-04] MEDS: ZyrTEC TAB 10 MG PO SCH (09:19)
[2020-09-04] MEDS: VSL#3 PO SCH (09:20)
[2020-09-04] MEDS: VITAMIN D3 125 mcg (5,000 UNITS) PO SCH (09:20)
[2020-09-04] MEDS: ZESTRIL TAB 40 MG PO SCH ×2 (09:21→21:15)
[2020-09-04] MEDS: APRESOLINE TAB 25 MG PO SCH ×2 (09:21→21:14)
[2020-09-04] MEDS: REMDESIVIR 100 MG in NS 250 ML IV 250 ML IV SCH (09:22)
[2020-09-04] MEDS: TRICOR TAB 160 MG PO SCH (09:22)
[2020-09-04] MEDS: MUCOMYST 20% 200 MG/ML NEB SCH ×2 (09:28→20:50)
[2020-09-04] MEDS: DUONEB 0.5 MG/3 MG (3 mL) NEB SCH ×4 (09:28→20:50)
[2020-09-04] MEDS: PULMICORT NEB TX 0.5 MG NEB SCH ×2 (09:28→20:50)
[2020-09-04] MEDS: LASIX IVP SCH ×2 (09:35→17:44)
[2020-09-04] MEDS: LOVENOX INJ 100 MG SYR SC SCH ×2 (09:35→21:16)
[2020-09-04] MEDS: LEVEMIR SC SCH ×2 (12:00→21:14)
[2020-09-04] MEDS: ALBUMIN HUMAN 25%- 100 ML 100 ML IV SCH (12:30)
[2020-09-04] MEDS: PROCALAMINE 3 % 1,000 ML IV SCH (12:30)
[2020-09-04] MEDS: NS 1000 ML 1,000 ML IV SCH (16:03)
[2020-09-04] MEDS: SNACK - Diabetic Appropriate PO SCH (21:14)
[2020-09-04] MEDS: ZOCOR TAB 20 MG PO SCH (21:15)
[2020-09-05] MEDS: VASOTEC INJ 2.5 MG VIAL IVP SCH ×4 (02:03→20:39)
[2020-09-05] MEDS: ZOSYN VIAL 3.375 GRAMS 3.375 G in NS 100 ML IV + SPIKE MINIBAG* 100 ML IV SCH ×3 (05:10→21:39)
[2020-09-05] MEDS: SOLU-Medrol 40 MG VIAL IVP SCH ×3 (05:10→21:38)
[2020-09-05 05:16] LABS: ABG ALLEN TEST POS; ABG BASE EXCESS 9.5 mmol/L (-2.0-2.0); ABG HCO3 33.5 mmol/L (22-26)
[2020-09-05 05:43] LABS: BASOPHILS % (AUTO) 0.3 % (0.2-1.0); HEMATOCRIT 36.8 % (42.0-54.0); HEMOGLOBIN 12.5 g/dL (13.5-18.0); LYMPHOCYTES # (AUTO) 0.5 X10^3/uL (1.3-2.9); LYMPHOCYTES % (AUTO) 5.9 % (21.0-51.0); MEAN CORPUSCULAR HGB CONC 33.8 g/dL (33.0-35.0); MEAN CORPUSCULAR VOLUME 94.6 fL (80.0-100.0); MEAN PLATELET VOLUME 8.5 fL (7.4-11.0); MONOCYTES # (AUTO) 0.3 x10^3/uL (0.3-0.8); MONOCYTES % (AUTO) 4.3 % (0.0-13.0); NEUTROPHILS # (AUTO) 7.2 x10^3/uL (2.2-4.8); NEUTROPHILS % (AUTO) 89.5 % (42.0-75.0); PLATELET COUNT 190 X10^3/uL (150.0-450.0); RED BLOOD COUNT 3.89 X10^6/uL (4.7-6.0)
[2020-09-05] MEDS: HumuLIN R SUBCUT PRN ×4 (06:00→21:57)
[2020-09-05 06:04] LABS: BAND NEUTROPHILS % 3 % (0-10); PLATELET MORPHOLOGY COMMENT NORMAL (NORMAL)
[2020-09-05 06:09] LABS: ALANINE AMINOTRANSFERASE 41 Units/L (12-78); ALBUMIN 2.5 g/dL (3.4-5.0); ALKALINE PHOSPHATASE 40 Units/L (46-116); ASPARTATE AMINO TRANSFERASE 16 Units/L (15-37); BLOOD UREA NITROGEN 39 mg/dL (7-18); CALCIUM 8.5 mg/dL (8.5-10.1); CARBON DIOXIDE 30.8 mmol/L (21-32); CHLORIDE 100 mmol/L (98-107); COR CA(FOR HYPOALB) 9.7 mg/dL (8.5-10.1); COR NA(FOR HYPERGLY) 141 mmol/L (136-145); CREATININE 1.04 mg/dL (0.70-1.30); SODIUM 137 mmol/L (136-145); TOTAL PROTEIN 5.8 g/dL (6.4-8.2); eGFR NON BLACK RACES > 60 (>60)
--- NOTE | 2020-09-05 07:36 | RAD ---
HISTORYShortness of breathSTUDYChest AP [id number]/2020FINDINGSThe heart remains enlarged. No congestive heart failure is noted. The antonella are normal. Bilaterally predominantly peripheral interstitial ground-glass and alveolar infiltrates are unchanged. No pleural effusions are identified. There is increasing subcutaneous emphysema in the right neck when compared with the prior examination. There appears to be a small right apical pneumothorax present. An associated pneumomediastinum is not entirely excluded.IMPRESSIONIncreasing subcutaneous emphysema in the right neck which appears to be due to a small right apical pneumothorax and possible pneumomediastinumNo change bilateral infiltratesNo change cardiomegaly without congestive heart failureElectronically signed by: BRAXTON SHANKAR (Sep 05, 2020 07:34:42)
[2020-09-05] MEDS: DUONEB 0.5 MG/3 MG (3 mL) NEB SCH ×4 (08:15→20:07)
[2020-09-05] MEDS: PULMICORT NEB TX 0.5 MG NEB SCH ×2 (08:15→20:07)
[2020-09-05] MEDS: MUCOMYST 20% 200 MG/ML NEB SCH ×2 (08:15→20:07)
[2020-09-05] MEDS: DECADRON JET NEB (RESP USE) NEB SCH ×2 (08:15→20:07)
[2020-09-05] MEDS: VSL#3 PO SCH (09:35)
[2020-09-05] MEDS: ZINC SULFATE PO SCH ×2 (09:35→20:39)
[2020-09-05] MEDS: ZyrTEC TAB 10 MG PO SCH (09:35)
[2020-09-05] MEDS: ALBUMIN HUMAN 25%- 100 ML 100 ML IV SCH (09:35)
[2020-09-05] MEDS: VITAMIN D3 125 mcg (5,000 UNITS) PO SCH (09:36)
[2020-09-05] MEDS: ZESTRIL TAB 40 MG PO SCH ×2 (09:36→20:39)
[2020-09-05] MEDS: TRICOR TAB 160 MG PO SCH (09:36)
[2020-09-05] MEDS: ROBITUSSIN DM PO SCH ×4 (09:36→20:36)
[2020-09-05] MEDS: LASIX IVP SCH ×2 (09:37→16:32)
[2020-09-05] MEDS: LOVENOX INJ 100 MG SYR SC SCH ×2 (09:37→20:37)
[2020-09-05] MEDS: APRESOLINE TAB 25 MG PO SCH ×2 (09:37→20:36)
[2020-09-05] MEDS: LEVEMIR SC SCH ×2 (09:38→20:36)
--- NOTE | 2020-09-05 12:28 | PCM.PROG ---
Progress Note - Progress Note for Day of Date of Exam: 09/04/20 - Subjective Subjective: IS BEING TREATED FOR PNEUMONIA DUE TO COVID-19, CONGESTIVE HEART FAILURE, AND HYPOXIA. TODAY, HE IS ALERT AND ORIENTED, LYING IN BED ON MORNING ROUNDS. HE CONTINUES WITH COMPLAINTS OF COUGH, SHORTNESS OF BREATH, AND GENERALIZED WEAKNESS. HE IS CURRENTLY UTILIZING THE BIPAP. HIS OXYGEN SATURATIONS HAVE BEEN 94-97% ON THE BIPAP. ON EXAMINATION, HEART IS REGULAR IN RATE AND RHYTHM. BILATERAL LUNGS ARE NOTED WITH FINE RALES THROUGHOUT. ABDOMEN IS ROUND, SOFT, AND NON-TENDER WITH NORMAL BOWEL SOUNDS NOTED IN ALL QUADRANTS. HIS VITALS THIS MORNING ARE: 98.0-58-25-95%-142/75. LABS WERE OBTAINED. ABNORMAL LAB VALUES INCLUDE THE FOLLOWING: RBC 3.85, HGB 12.4, HCT 36.7, SODIUM 135, BUN 33, GLUCOSE 281, CALCIUM 8.2, FERRITIN 1390, CRP 92.90, TOTAL PROTEIN 5.4, ALBUMIN 2.1. AN ABG WAS REPEATED TODAY AND REVEALED: PH 7.500, PC02 42, P02 105, HC03 32.8, 02 SAT 98, FI02 100.0 BLOOD CULTURES ARE PENDING. CHEST XRAY REVEALED: No change bilateral Infiltrates. No change mild cardiomegaly without congestive heart failure. Subcutaneous emphysema in the right neck of as yet uncertain etiology. HE HAS RECEIVED TWO UNITS OF CONVALESCENT PLASMA SINCE ADMISSION. HE IS CURRENLY RECEIVING NORMAL SALINE AT KVO ML/HR, ZOSYN 3.375G IV TID, SOLU-MEDROL 80MG IV Q8H, DUONEBS QID, PULMICORT NEBS BID, MUCINEX IN NEB TX, DEXAMETHASONE IN NEB TX, TUSSIONEX 5ML PO Q12H PRN, LOVENOX 100MG SC BID, ROBITUSSIN DM 10 ML PO QID, VSL #3 2 CAPS PO DAILY, TRICOR 160MG PO DAILY, ZINC SULFATE 220MG PO BID, A CLONIDINE PATCH, ZYRTEC 10MG PO DAILY, HYDRALAZINE 50MG PO BID, LISINOPRIL 40MG PO BID, AND LASIX 40MG IV Q12H. TODAY, WE WILL ADD PROCALAMINE AT 40 ML/HR, ALBUMIN 25% IV DAILY, AND LEVEMIR 7 UNITS SC BID DUE TO PERSISTENTLY ELEVATED BLOOD GLUCOSE LEVELS. OTHERWISE, WE WILL FOLLOW UP WITH AM LABS AND CONTINUE TO MONITOR. TIME SPENT ON CLINICAL ASSESSMENT, REVIEWING LABS AND IMAGING, DECISION MAKING, AND DOCUMENTATION GREATER THAN 45 MINUTES. - Past Medical Family Social History Past Med/Fam/Surg Hx: No changes since H&P Allergies: Allergies No Known Drug Allergies Allergy (Verified 12/28/18 18:04) - Review of Systems ROS: No change since H&P - Vital Signs and I&O's Vital Signs: Temperature 98.3 F Pulse Rate 50 Respiratory Rate 19 Blood Pressure [Right Arm] 149/70 Blood Pressure [Left Arm] 168/92 Blood Pressure 136/64 O2 Sat by Pulse Oximetry 95 Intake and Output: Intake & Output 09/03/20 09/04/20 09/05/20 09/06/20 11:59 11:59 11:59 11:59 Intake Total 2255 / 2255 1586 / 1586 2278 / 2278 Output Total 3050 / 3050 2775 / 2775 1900 / 1900 Balance -795 / -795 -1189 / -1189 378 / 378 - Physical Exam Oriented: Normal Eyes: Normal Ear: Normal Nose: Normal Throat: Normal Respiratory: Diminished, Rales Cardiovascular: Normal : Normal Auscultation: Bowel Sounds: Normal Palpation: Normal Tenderness: Normal Skin: Normal Musculoskeletal: Normal Psychiatric: Normal Mood Description: Calm Affect: Normal Speech Pattern: Clear, Appropriate - Laboratory and Diagnostics Result Diagrams: 09/05/20 04:08 09/05/20 04:08 Labs: 08/26/20 12:40 Blood Blood Culture - Final 08/26/20 11:40 Blood Blood Culture - Final Laboratory WBC 8.0 X10^3/uL (3.6-10.0) 09/05/20 04:08 RBC 3.89 X10^6/uL (4.7-6.0) L 09/05/20 04:08 Hgb 12.5 g/dL (13.5-18.0) L 09/05/20 04:08 Hct 36.8 % (42.0-54.0) L 09/05/20 04:08 MCV 94.6 fL (80.0-100.0) 09/05/20 04:08 MCH 32.0 pg (27.0-34.0) 09/05/20 04:08 MCHC 33.8 g/dL (33.0-35.0) 09/05/20 04:08 RDW 13.0 % (11.6-16.5) 09/05/20 04:08 Plt Count 190 X10^3/uL (150.0-450.0) 09/05/20 04:08 Plt Count Comment Adequate (ADEQUATE) 09/05/20 04:08 MPV 8.5 fL (7.4-11.0) 09/05/20 04:08 Neut % (Auto) 89.5 % (42.0-75.0) H 09/05/20 04:08 Lymph % (Auto) 5.9 % (21.0-51.0) L 09/05/20 04:08 [place] % (Auto) 4.3 % (0.0-13.0) 09/05/20 04:08 Eos % (Auto) 0.0 % (0.9-2.9) L 09/05/20 04:08 Baso % (Auto) 0.3 % (0.2-1.0) 09/05/20 04:08 Neut # (Auto) 7.2 x10^3/uL (2.2-4.8) H 09/05/20 04:08 Lymph # (Auto) 0.5 X10^3/uL (1.3-2.9) L 09/05/20 04:08 [place] # (Auto) 0.3 x10^3/uL (0.3-0.8) 09/05/20 04:08 Eos # (Auto) 0.0 x10^3/uL (0.0-0.2) 09/05/20 04:08 Baso # (Auto) 0.0 X10^3/uL (0.0-0.1) 09/05/20 04:08 Absolute Nucleated RBC 0.0 /100WBC 09/05/20 04:08 Total Counted 100 09/05/20 04:08 Neutrophils % (Manual) 84 % (39-76) H 09/05/20 04:08 Band Neutrophils % 3 % (0-10) 09/05/20 04:08 Lymphocytes % (Manual) 9 % (13-43) L 09/05/20 04:08 Monocytes % (Manual) 4 % (4-9) 09/05/20 04:08 Plt Morphology Comment Normal (NORMAL) 09/05/20 04:08 RBC Morphology Normal (NORMAL) 09/05/20 04:08 D-Dimer 0.72 ug/ml (0.0-0.57) H* 08/27/20 04:15 Sample Site Lr 09/05/20 05:10 ABG pH 7.510 (7.35-7.45) H 09/05/20 05:10 ABG pCO2 42.0 mmHg (35.0-45.0) 09/05/20 05:10 ABG pO2 89.0 mmHg (80.0-100.0) 09/05/20 05:10 ABG HCO3 33.5 mmol/L (22-26) H* 09/05/20 05:10 ABG O2 Saturation 98.0 % (90-100) 09/05/20 05:10 ABG Base Excess 9.5 mmol/L (-2.0-2.0) H 09/05/20 05:10 Farzad Test Pos 09/05/20 05:10 A-a Gradient 429.0 mmHg 09/05/20 05:10 FiO2 80.0 09/05/20 05:10 Blood Gas Comments Ulises well ae 09/05/20 05:10 Sodium 137 mmol/L (136-145) 09/05/20 04:08 Corrected Sodium 141 mmol/L (136-145) 09/05/20 04:08 Potassium 3.8 mmol/L (3.5-5.1) 09/05/20 04:08 Chloride 100 mmol/L (98-107) 09/05/20 04:08 Carbon Dioxide 30.8 mmol/L (21-32) 09/05/20 04:08 BUN 39 mg/dL (7-18) H 09/05/20 04:08 Creatinine 1.04 mg/dL (0.70-1.30) 09/05/20 04:08 Est GFR (MDRD) Af Amer > 60 (>60) 09/05/20 04:08 Est GFR (MDRD) Non-Af > 60 (>60) 09/05/20 04:08 Glucose 283 mg/dL (65-99) H 09/05/20 04:08 POC Glucose (mg/dL) 342 mg/dL (65-99) H 09/05/20 11:51 Hemoglobin A1c 7.8 % 09/01/20 04:25 Lactic Acid 1.6 mmol/L (0.4-2.0) 08/26/20 11:40 Calcium 8.5 mg/dL (8.5-10.1) 09/05/20 04:08 Corrected Calcium 9.7 mg/dL (8.5-10.1) 09/05/20 04:08 Magnesium 2.5 mg/dL (1.7-2.9) 08/29/20 04:30 Ferritin 990 ng/mL (26-388) H 09/05/20 04:08 Total Bilirubin 0.80 mg/dL (0.2-1.0) 09/05/20 04:08 AST 16 Units/L (15-37) 09/05/20 04:08 ALT 41 Units/L (12-78) 09/05/20 04:08 Alkaline Phosphatase 40 Units/L (46-116) L 09/05/20 04:08 Creatine Kinase 215 Units/L (39-308) 08/27/20 04:15 CK-MB (CK-2) < 1.0 ng/mL (0-4.0) 08/27/20 04:15 CK/CKMB % Calc 0.5 % (<4) 08/27/20 04:15 Troponin I < 0.02 ng/mL (0-1.5) 08/27/20 04:15 C-Reactive Protein 67.60 mg/L (0-3.0) H 09/05/20 04:08 B-Natriuretic Peptide 100 pg/mL (0-79) H 08/29/20 23:05 Total Protein 5.8 g/dL (6.4-8.2) L 09/05/20 04:08 Albumin 2.5 g/dL (3.4-5.0) L 09/05/20 04:08 Globulin 3.3 g/dL (2.5-4.5) 09/05/20 04:08 Albumin/Globulin Ratio 0.8 Ratio (1.1-2.1) L 09/05/20 04:08 Influenza Type A (PCR) Negative (NEGATIVE) 08/27/20 13:15 Influenza Type B (PCR) Negative (NEGATIVE) 08/27/20 13:15 SARS CoV-2 RNA Rapid TONY Positive (NEGATIVE) A 08/26/20 15:50 Blood Type A POSITIVE 08/27/20 10:02 - Plan (1) Pneumonia due to COVID-19 virus Status: Acute Plan: NORMAL SALINE AT KVO ML/HR, PROCALAMINE AT 40 ML/HR, ZOSYN 3.375G IV TID, SOLU-MEDROL 80MG IV Q8H, DUONEBS QID, PULMICORT NEBS BID, MUCINEX IN NEB TX, DEXAMETHASONE IN NEB TX, TUSSIONEX 5ML PO Q12H PRN, LOVENOX 100MG SC BID, ROBITUSSIN DM 10 ML PO QID, VSL #3 2 CAPS PO DAILY, TRICOR 160MG PO DAILY, ZINC SULFATE 220MG PO BID, A CLONIDINE PATCH, ZYRTEC 10MG PO DAILY, HYDRALAZINE 50MG PO BID, LISINOPRIL 40MG PO BID, AND LASIX 40MG IV Q12H, LEVEMIR 7UNITS SC BID. BIPAP (2) CHF (congestive heart failure) Status: Acute Qualifiers: Heart failure type: unspecified Heart failure chronicity: unspecified Qualified Code(s): I50.9 - Heart failure, unspecified (3) Hypoxia Status: Acute (4) Respiratory distress Status: Acute
[2020-09-05] MEDS ORDERED: MAALOX or MYLANTA ONE (13:52)
[2020-09-05] MEDS ORDERED: MAALOX or MYLANTA PO PRN (14:00)
[2020-09-05] MEDS: NS 1000 ML 1,000 ML IV SCH (16:33)
[2020-09-05] MEDS: TUSSIONEX PENNKINETIC SUSP PO PRN (17:23)
[2020-09-05] MEDS: SNACK - Diabetic Appropriate PO SCH (20:35)
[2020-09-05] MEDS: ZOCOR TAB 20 MG PO SCH (20:38)
[2020-09-06] MEDS: VASOTEC INJ 2.5 MG VIAL IVP SCH ×4 (02:17→21:01)
[2020-09-06 04:45] LABS: ABG ALLEN TEST POS; ABG BASE EXCESS 6.3 mmol/L (-2.0-2.0); ABG HCO3 29.4 mmol/L (22-26)
[2020-09-06] MEDS: SOLU-Medrol 40 MG VIAL IVP SCH ×3 (05:08→21:05)
[2020-09-06 05:41] LABS: BASOPHILS % (AUTO) 0.4 % (0.2-1.0); HEMATOCRIT 35.5 % (42.0-54.0); HEMOGLOBIN 12.1 g/dL (13.5-18.0); LYMPHOCYTES # (AUTO) 0.4 X10^3/uL (1.3-2.9); LYMPHOCYTES % (AUTO) 4.1 % (21.0-51.0); MEAN CORPUSCULAR HEMOGLOBIN 32.3 pg (27.0-34.0); MEAN CORPUSCULAR HGB CONC 34.2 g/dL (33.0-35.0); MEAN CORPUSCULAR VOLUME 94.4 fL (80.0-100.0); MEAN PLATELET VOLUME 8.9 fL (7.4-11.0); MONOCYTES # (AUTO) 0.6 x10^3/uL (0.3-0.8); MONOCYTES % (AUTO) 6.8 % (0.0-13.0); NEUTROPHILS # (AUTO) 7.9 x10^3/uL (2.2-4.8); NEUTROPHILS % (AUTO) 88.7 % (42.0-75.0); PLATELET COUNT 174 X10^3/uL (150.0-450.0); RED BLOOD COUNT 3.76 X10^6/uL (4.7-6.0); RED CELL DISTRIBUTION WIDTH 13.2 % (11.6-16.5); WHITE BLOOD COUNT 8.9 X10^3/uL (3.6-10.0)
[2020-09-06 05:43] LABS: ALANINE AMINOTRANSFERASE 39 Units/L (12-78); ALBUMIN 2.5 g/dL (3.4-5.0); ALKALINE PHOSPHATASE 38 Units/L (46-116); ASPARTATE AMINO TRANSFERASE 16 Units/L (15-37); BLOOD UREA NITROGEN 39 mg/dL (7-18); CALCIUM 8.5 mg/dL (8.5-10.1); CARBON DIOXIDE 27.9 mmol/L (21-32); CHLORIDE 100 mmol/L (98-107); COR CA(FOR HYPOALB) 9.7 mg/dL (8.5-10.1); COR NA(FOR HYPERGLY) 143 mmol/L (136-145); CREATININE 1.27 mg/dL (0.70-1.30); SODIUM 137 mmol/L (136-145); TOTAL PROTEIN 5.5 g/dL (6.4-8.2); eGFR NON BLACK RACES > 60 (>60)
[2020-09-06] MEDS: HumuLIN R SUBCUT PRN ×4 (06:17→21:34)
[2020-09-06] MEDS ORDERED: POTASSIUM CHLORIDE LIQ 20 MEQ UDC PO PRN (06:18)
[2020-09-06] MEDS ORDERED: KLOR-CON PO PRN (06:18)
[2020-09-06] MEDS ORDERED: POTASSIUM CHL 60 MEQ/NS 0.45% 500 ML IV PRN (06:18)
[2020-09-06] MEDS ORDERED: POTASSIUM CHL 40 MEQ/NS 0.45% 500 ML IV PRN (06:18)
[2020-09-06] MEDS ORDERED: K-DUR TAB 20 MEQ PO PRN (06:18)
[2020-09-06] MEDS ORDERED: K-RIDER 10 MEQ/NS 100 ML 10 MEQ/100 ML BAG IV PRN (06:18)
[2020-09-06] MEDS ORDERED: MICRO K EXTEN CAP 10 MEQ PO PRN (06:18)
--- NOTE | 2020-09-06 06:55 | RAD ---
HISTORYShortness of breathSTUDYChest AP [id number] heart remains enlarged. No congestive heart failure is noted. The antonella are normal. Bilaterally predominantly peripheral interstitial and ground-glass infiltrates are unchanged. No pleural effusions are identified. Subcutaneous emphysema is decreasing in the right neck when compared with the prior examination. Does appear to be a tiny right apical pneumothorax unchanged from the prior examination. A definite pneumomediastinum is not demonstrated on today's examination. No pleural effusions are identified. Bony thorax is unremarkable.IMPRESSIONNo significant change when compared to the prior examinationElectronically signed by: BRAXTON SHANKAR (Sep 06, 2020 06:53:27)
[2020-09-06] MEDS: LEVEMIR SC SCH ×3 (08:37→20:58)
[2020-09-06] MEDS: ALBUMIN HUMAN 25%- 100 ML 100 ML IV SCH (08:38)
[2020-09-06] MEDS: ROBITUSSIN DM PO SCH ×4 (08:40→21:01)
[2020-09-06] MEDS: APRESOLINE TAB 25 MG PO SCH ×2 (08:40→20:58)
[2020-09-06] MEDS: ZINC SULFATE PO SCH ×2 (08:41→21:02)
[2020-09-06] MEDS: VITAMIN D3 125 mcg (5,000 UNITS) PO SCH (08:42)
[2020-09-06] MEDS: ZESTRIL TAB 40 MG PO SCH ×2 (08:42→21:02)
[2020-09-06] MEDS: TRICOR TAB 160 MG PO SCH (08:42)
[2020-09-06] MEDS: ZyrTEC TAB 10 MG PO SCH (08:43)
[2020-09-06] MEDS: LOVENOX INJ 100 MG SYR SC SCH ×2 (09:30→20:59)
[2020-09-06] MEDS: VSL#3 PO SCH (09:30)
[2020-09-06] MEDS: LASIX IVP SCH ×2 (09:30→17:18)
[2020-09-06] MEDS: PULMICORT NEB TX 0.5 MG NEB SCH ×2 (09:34→20:15)
[2020-09-06] MEDS: DUONEB 0.5 MG/3 MG (3 mL) NEB SCH ×4 (09:34→20:15)
[2020-09-06] MEDS: DECADRON JET NEB (RESP USE) NEB SCH ×2 (09:34→20:15)
--- NOTE | 2020-09-06 09:41 | PCM.PROG ---
Progress Note - Progress Note for Day of Date of Exam: 09/05/20 - Subjective Subjective: IS BEING TREATED FOR PNEUMONIA DUE TO COVID-19, CONGESTIVE HEART FAILURE, AND HYPOXIA. TODAY, HE IS ALERT AND ORIENTED, LYING IN BED ON MORNING ROUNDS. HE CONTINUES WITH COMPLAINTS OF COUGH, SHORTNESS OF BREATH, AND GENERALIZED WEAKNESS. HE IS CURRENTLY UTILIZING THE BIPAP. HE HAS BEEN SWITCHING BETWEEN THE BIPAP AND NASAL CANNULA. HIS OXYGEN SATURATIONS HAVE BEEN 94-97% ON THE BIPAP AND THEY DROP TO THE HIGH 80s WHEN HE IS ON THE NASAL CANNULA. ON EXAMINATION, HEART IS REGULAR IN RATE AND RHYTHM. BILATERAL LUNGS ARE NOTED WITH FINE RALES THROUGHOUT. ABDOMEN IS ROUND, SOFT, AND NON-TENDER WITH NORMAL BOWEL SOUNDS NOTED IN ALL QUADRANTS. HIS VITALS THIS MORNING ARE: 98.3-50-18 -95%-128/62. LABS WERE OBTAINED. ABNORMAL LAB VALUES INCLUDE THE FOLLOWING: RBC 3.89, HGB 12.5, HCT 36.8, BUN 39, GLUCOSE 283, FERRITIN 990, ALK PHOS 40, CRP 67.60, TOTAL PROTEIN 5.8, ALBUMIN 2.5. AN ABG WAS REPEATED TODAY AND REVEALED: PH 7.510, PC02 42, P02 89, HC03 33.5, 02 SAT 98, BASE EXCESS 9.5, FI02 80. BLOOD CULTURES ARE PENDING. CHEST XRAY REVEALED: Increasing subcutaneous emphysema in the right neck which appears to be due to a small right apical pneumothorax and possible pneumomediastinum. No change bilateral infiltrates. No change cardiomegaly without congestive heart failure. HE HAS RECEIVED TWO UNITS OF CONVALESCENT PLASMA SINCE ADMISSION. HE IS CURRENLY RECEIVING NORMAL SALINE AT KVO ML/HR, PROCALAMINE AT 40 ML/HR, ALBUMIN 25% IV DAILY, ZOSYN 3.375G IV TID, SOLU-MEDROL 80MG IV Q8H, DUONEBS QID, PULMICORT NEBS BID, MUCINEX IN NEB TX, DEXAMETHASONE IN NEB TX, TUSSIONEX 5ML PO Q12H PRN, LOVENOX 100MG SC BID, ROBITUSSIN DM 10 ML PO QID, VSL #3 2 CAPS PO DAILY, TRICOR 160MG PO DAILY, ZINC SULFATE 220MG PO BID, A CLONIDINE PATCH, ZYRTEC 10MG PO DAILY, HYDRALAZINE 50MG PO BID, LISINOPRIL 40MG PO BID, HUMULIN R SLIDING SCALE, LEVEMIR 7 UNITS SC BID, AND LASIX 40MG IV Q12H. OTHERWISE, WE WILL FOLLOW UP WITH AM LABS AND CONTINUE TO MONITOR. TIME SPENT ON CLINICAL ASSESSMENT, REVIEWING LABS AND IMAGING, DECISION MAKING, AND DOCUMENTATION GREATER THAN 45 MINUTES. - Past Medical Family Social History Past Med/Fam/Surg Hx: No changes since H&P Allergies: Allergies No Known Drug Allergies Allergy (Verified 12/28/18 18:04) - Review of Systems ROS: No change since H&P - Vital Signs and I&O's Vital Signs: Temperature 98.0 F Pulse Rate 71 Respiratory Rate 20 Blood Pressure [Right Arm] 149/70 Blood Pressure [Left Arm] 168/92 Blood Pressure 161/71 O2 Sat by Pulse Oximetry 86 Intake and Output: Intake & Output 09/03/20 09/04/20 09/05/20 09/06/20 11:59 11:59 11:59 11:59 Intake Total 2255 / 2255 1586 / 1586 2278 / 2278 3450 / 3450 Output Total 3050 / 3050 2775 / 2775 1900 / 1900 3300 / 3300 Balance -795 / -795 -1189 / -1189 378 / 378 150 / 150 - Physical Exam Oriented: Normal Eyes: Normal Ear: Normal Nose: Normal Throat: Normal Respiratory: Diminished, Rales Cardiovascular: Normal : Normal Auscultation: Bowel Sounds: Normal Palpation: Normal Tenderness: Normal Skin: Normal Musculoskeletal: Normal Psychiatric: Normal Mood Description: Calm Affect: Normal Speech Pattern: Clear, Appropriate - Laboratory and Diagnostics Result Diagrams: 09/06/20 04:06 09/06/20 04:06 Labs: 08/26/20 12:40 Blood Blood Culture - Final 08/26/20 11:40 Blood Blood Culture - Final Laboratory WBC 8.9 X10^3/uL (3.6-10.0) 09/06/20 04:06 RBC 3.76 X10^6/uL (4.7-6.0) L 09/06/20 04:06 Hgb 12.1 g/dL (13.5-18.0) L 09/06/20 04:06 Hct 35.5 % (42.0-54.0) L 09/06/20 04:06 MCV 94.4 fL (80.0-100.0) 09/06/20 04:06 MCH 32.3 pg (27.0-34.0) 09/06/20 04:06 MCHC 34.2 g/dL (33.0-35.0) 09/06/20 04:06 RDW 13.2 % (11.6-16.5) 09/06/20 04:06 Plt Count 174 X10^3/uL (150.0-450.0) 09/06/20 04:06 Plt Count Comment Adequate (ADEQUATE) 09/05/20 04:08 MPV 8.9 fL (7.4-11.0) 09/06/20 04:06 Neut % (Auto) 88.7 % (42.0-75.0) H 09/06/20 04:06 Lymph % (Auto) 4.1 % (21.0-51.0) L 09/06/20 04:06 [place] % (Auto) 6.8 % (0.0-13.0) 09/06/20 04:06 Eos % (Auto) 0.0 % (0.9-2.9) L 09/06/20 04:06 Baso % (Auto) 0.4 % (0.2-1.0) 09/06/20 04:06 Neut # (Auto) 7.9 x10^3/uL (2.2-4.8) H 09/06/20 04:06 Lymph # (Auto) 0.4 X10^3/uL (1.3-2.9) L 09/06/20 04:06 [place] # (Auto) 0.6 x10^3/uL (0.3-0.8) 09/06/20 04:06 Eos # (Auto) 0.0 x10^3/uL (0.0-0.2) 09/06/20 04:06 Baso # (Auto) 0.0 X10^3/uL (0.0-0.1) 09/06/20 04:06 Absolute Nucleated RBC 0.1 /100WBC 09/06/20 04:06 Total Counted 100 09/05/20 04:08 Neutrophils % (Manual) 84 % (39-76) H 09/05/20 04:08 Band Neutrophils % 3 % (0-10) 09/05/20 04:08 Lymphocytes % (Manual) 9 % (13-43) L 09/05/20 04:08 Monocytes % (Manual) 4 % (4-9) 09/05/20 04:08 Plt Morphology Comment Normal (NORMAL) 09/05/20 04:08 RBC Morphology Normal (NORMAL) 09/05/20 04:08 D-Dimer 0.72 ug/ml (0.0-0.57) H* 08/27/20 04:15 Sample Site Rrad 09/06/20 04:41 ABG pH 7.520 (7.35-7.45) H 09/06/20 04:41 ABG pCO2 36.0 mmHg (35.0-45.0) 09/06/20 04:41 ABG pO2 68.0 mmHg (80.0-100.0) L 09/06/20 04:41 ABG HCO3 29.4 mmol/L (22-26) H 09/06/20 04:41 ABG O2 Saturation 95.0 % (90-100) 09/06/20 04:41 ABG Base Excess 6.3 mmol/L (-2.0-2.0) H 09/06/20 04:41 Farzad Test Pos 09/06/20 04:41 A-a Gradient 172.0 mmHg 09/06/20 04:41 FiO2 40.0 09/06/20 04:41 Blood Gas Comments Uliess abg well-mtf 09/06/20 04:41 Sodium 137 mmol/L (136-145) 09/06/20 04:06 Corrected Sodium 143 mmol/L (136-145) 09/06/20 04:06 Potassium 3.4 mmol/L (3.5-5.1) L 09/06/20 04:06 Chloride 100 mmol/L (98-107) 09/06/20 04:06 Carbon Dioxide 27.9 mmol/L (21-32) 09/06/20 04:06 BUN 39 mg/dL (7-18) H 09/06/20 04:06 Creatinine 1.27 mg/dL (0.70-1.30) 09/06/20 04:06 Est GFR (MDRD) Af Amer > 60 (>60) 09/06/20 04:06 Est GFR (MDRD) Non-Af > 60 (>60) 09/06/20 04:06 Glucose 362 mg/dL (65-99) H 09/06/20 04:06 POC Glucose (mg/dL) 412 mg/dL (65-99) H 09/05/20 20:23 Hemoglobin A1c 7.8 % 09/01/20 04:25 Lactic Acid 1.6 mmol/L (0.4-2.0) 08/26/20 11:40 Calcium 8.5 mg/dL (8.5-10.1) 09/06/20 04:06 Corrected Calcium 9.7 mg/dL (8.5-10.1) 09/06/20 04:06 Magnesium 2.5 mg/dL (1.7-2.9) 08/29/20 04:30 Ferritin 635 ng/mL (26-388) H 09/06/20 04:06 Total Bilirubin 0.50 mg/dL (0.2-1.0) 09/06/20 04:06 AST 16 Units/L (15-37) 09/06/20 04:06 ALT 39 Units/L (12-78) 09/06/20 04:06 Alkaline Phosphatase 38 Units/L (46-116) L 09/06/20 04:06 Creatine Kinase 215 Units/L (39-308) 08/27/20 04:15 CK-MB (CK-2) < 1.0 ng/mL (0-4.0) 08/27/20 04:15 CK/CKMB % Calc 0.5 % (<4) 08/27/20 04:15 Troponin I < 0.02 ng/mL (0-1.5) 08/27/20 04:15 C-Reactive Protein 30.30 mg/L (0-3.0) H 09/06/20 04:06 B-Natriuretic Peptide 100 pg/mL (0-79) H 08/29/20 23:05 Total Protein 5.5 g/dL (6.4-8.2) L 09/06/20 04:06 Albumin 2.5 g/dL (3.4-5.0) L 09/06/20 04:06 Globulin 3.0 g/dL (2.5-4.5) 09/06/20 04:06 Albumin/Globulin Ratio 0.8 Ratio (1.1-2.1) L 09/06/20 04:06 Influenza Type A (PCR) Negative (NEGATIVE) 08/27/20 13:15 Influenza Type B (PCR) Negative (NEGATIVE) 08/27/20 13:15 SARS CoV-2 RNA Rapid TONY Positive (NEGATIVE) A 08/26/20 15:50 Blood Type A POSITIVE 08/27/20 10:02 - Plan (1) Pneumonia due to COVID-19 virus Status: Acute Plan: NORMAL SALINE AT KVO ML/HR, PROCALAMINE AT 40 ML/HR, ZOSYN 3.375G IV TID, SOLU-MEDROL 80MG IV Q8H, DUONEBS QID, PULMICORT NEBS BID, MUCINEX IN NEB TX, DEXAMETHASONE IN NEB [place], TUSSIONEX 5ML PO Q12H PRN, LOVENOX 100MG SC BID, ROBITUSSIN DM 10 ML PO QID, VSL #3 2 CAPS PO DAILY, TRICOR 160MG PO DAILY, ZINC SULFATE 220MG PO BID, A CLONIDINE PATCH, ZYRTEC 10MG PO DAILY, HYDRALAZINE 50MG PO BID, LISINOPRIL 40MG PO BID, AND LASIX 40MG IV Q12H, LEVEMIR 7UNITS SC BID. SUPPLEMENTAL OXYGEN (2) CHF (congestive heart failure) Status: Acute Qualifiers: Heart failure type: unspecified Heart failure chronicity: unspecified Qualified Code(s): I50.9 - Heart failure, unspecified (3) Hypoxia Status: Acute (4) Respiratory distress Status: Acute (5) CAD (coronary artery disease) Status: Chronic Qualifiers: Coronary Disease-Associated Artery/Lesion type: [place] artery [place] vs. transplanted heart: [place] heart Associated angina: angina presence unspecifie d Qualified Code(s): I25.10 - Atherosclerotic heart disease of [place] coronary artery without angina pectoris (6) HTN (hypertension) Status: Chronic Qualifiers: Hypertension type: essential hypertension Qualified Code(s): I10 - Essential (primary) hypertension (7) Dyslipidemia Status: Chronic
[2020-09-06] MEDS: NS 1000 ML 1,000 ML IV SCH (20:11)
[2020-09-06] MEDS: PROCALAMINE 3 % 1,000 ML IV SCH (20:12)
[2020-09-06] MEDS: SNACK - Diabetic Appropriate PO SCH (20:58)
[2020-09-06] MEDS: ZOCOR TAB 20 MG PO SCH (21:02)
[2020-09-07] MEDS: VASOTEC INJ 2.5 MG VIAL IVP SCH ×2 (02:30→09:21)
[2020-09-07 05:05] LABS: ABG BASE EXCESS 7.6 mmol/L (-2.0-2.0)
[2020-09-07 05:06] LABS: ABG ALLEN TEST POS
[2020-09-07] MEDS: NS 1000 ML 1,000 ML IV SCH (05:06)
[2020-09-07] MEDS: SOLU-Medrol 40 MG VIAL IVP SCH ×3 (05:51→21:33)
[2020-09-07 06:24] LABS: BASOPHILS % (AUTO) 0.3 % (0.2-1.0); HEMATOCRIT 32.9 % (42.0-54.0); HEMOGLOBIN 11.4 g/dL (13.5-18.0); LYMPHOCYTES # (AUTO) 0.5 X10^3/uL (1.3-2.9); LYMPHOCYTES % (AUTO) 6.3 % (21.0-51.0); MEAN CORPUSCULAR HEMOGLOBIN 32.8 pg (27.0-34.0); MEAN CORPUSCULAR HGB CONC 34.7 g/dL (33.0-35.0); MEAN CORPUSCULAR VOLUME 94.4 fL (80.0-100.0); MEAN PLATELET VOLUME 9.1 fL (7.4-11.0); MONOCYTES # (AUTO) 0.6 x10^3/uL (0.3-0.8); NEUTROPHILS # (AUTO) 6.9 x10^3/uL (2.2-4.8); NEUTROPHILS % (AUTO) 86.4 % (42.0-75.0); PLATELET COUNT 152 X10^3/uL (150.0-450.0); RED BLOOD COUNT 3.49 X10^6/uL (4.7-6.0); RED CELL DISTRIBUTION WIDTH 13.2 % (11.6-16.5); WHITE BLOOD COUNT 7.9 X10^3/uL (3.6-10.0)
[2020-09-07 06:32] LABS: ALANINE AMINOTRANSFERASE 44 Units/L (12-78); ALBUMIN 2.8 g/dL (3.4-5.0); ALKALINE PHOSPHATASE 32 Units/L (46-116); ASPARTATE AMINO TRANSFERASE 23 Units/L (15-37); BLOOD UREA NITROGEN 34 mg/dL (7-18); CALCIUM 8.4 mg/dL (8.5-10.1); CARBON DIOXIDE 28.4 mmol/L (21-32); CHLORIDE 102 mmol/L (98-107); COR CA(FOR HYPOALB) 9.4 mg/dL (8.5-10.1); COR NA(FOR HYPERGLY) 142 mmol/L (136-145); CREATININE 1.08 mg/dL (0.70-1.30); SODIUM 138 mmol/L (136-145); TOTAL PROTEIN 5.4 g/dL (6.4-8.2); eGFR NON BLACK RACES > 60 (>60)
[2020-09-07] MEDS: HumuLIN R SUBCUT PRN ×4 (06:42→20:43)
[2020-09-07 07:07] LABS: BAND NEUTROPHILS % 2 % (0-10); PLATELET MORPHOLOGY COMMENT NORMAL (NORMAL)
--- NOTE | 2020-09-07 07:08 | RAD ---
HISTORYSOBSTUDYCHEST, 1 [id number] cardiomediastinal silhouette. Stable multifocal bilateral patchy opacities. No sizable effusion or visible pneumothorax.IMPRESSIONNo significant interval change.Electronically signed by: Aaron Reid (Sep 07, 2020 07:07:21)
[2020-09-07] MEDS: DECADRON JET NEB (RESP USE) NEB SCH ×2 (08:50→21:40)
[2020-09-07] MEDS: PULMICORT NEB TX 0.5 MG NEB SCH ×2 (08:50→21:40)
[2020-09-07] MEDS: DUONEB 0.5 MG/3 MG (3 mL) NEB SCH ×4 (08:50→21:40)
[2020-09-07] MEDS: ALBUMIN HUMAN 25%- 100 ML 100 ML IV SCH (09:00)
[2020-09-07] MEDS: APRESOLINE TAB 25 MG PO SCH ×2 (09:01→20:35)
[2020-09-07] MEDS: ROBITUSSIN DM PO SCH ×4 (09:02→20:34)
[2020-09-07] MEDS: LEVEMIR SC SCH ×2 (09:02→20:37)
[2020-09-07] MEDS: TRICOR TAB 160 MG PO SCH (09:02)
[2020-09-07] MEDS: VSL#3 PO SCH (09:03)
[2020-09-07] MEDS: VITAMIN D3 125 mcg (5,000 UNITS) PO SCH (09:03)
[2020-09-07] MEDS: ZESTRIL TAB 40 MG PO SCH ×2 (09:03→20:35)
[2020-09-07] MEDS: ZINC SULFATE PO SCH ×2 (09:03→20:37)
[2020-09-07] MEDS: ZyrTEC TAB 10 MG PO SCH (09:04)
[2020-09-07] MEDS: LASIX IVP SCH ×2 (09:20→17:23)
[2020-09-07] MEDS: LOVENOX INJ 100 MG SYR SC SCH (09:21)
--- NOTE | 2020-09-07 12:29 | PCM.PROG ---
Progress Note Progress Note for Day of Date of Exam: 09/07/20 Subjective Subjective: Patient seen at bedside, no overnight events. He states he feels slightly better. He is being treated for acute respiratory failure due to COVID- 19 pneumonia. He is currently on 5L NC. He has minimal cough. Denies N/V/D. Denies fever or chills. Labs: Hgb 11.4 Plt 152 CRP 15.80 D-dimer (-) CTPE (-) for PE ABG 7.52/38/62/31 CXR: multifocal bilateral patchy opacities Patient has received 2 doses of convalescent plasma. He has also completed course of Remdesivir. Plan: will DC FD lovenox and switch to ppx dose, continue solumedrol. Increase levemir to 15 units BID. Monitor respiratory status to keep sats > 90%. Aggressive pulmonary toilet with IS, dexamethasone nebs, duonebs and pulmicort. Monitor AM labs, CXR and ABG. Time spent for clinical assessment, physical examination, reviewing labs/imaging , decision making and documentation more than 45 mins. Past Medical Family Social History Past Med/Fam/Surg Hx: No changes since H&P Allergies: Allergies No Known Drug Allergies Allergy (Verified 12/28/18 18:04) Review of Systems ROS: No change since H&P Vital Signs and I&O's Vital Signs: Temperature 98.0 F Pulse Rate 81 Respiratory Rate 33 Blood Pressure [Right Arm] 149/70 Blood Pressure [Left Arm] 168/92 Blood Pressure 141/64 O2 Sat by Pulse Oximetry 83 Intake and Output: Intake & Output 09/04/20 09/05/20 09/06/20 09/07/20 23:59 23:59 23:59 23:59 Intake Total 1818 / 1818 2870 / 2870 4311 / 4311 880 / 880 Output Total 1900 / 1900 2900 / 2900 1974 / 1974 325 / 325 Balance -82 / -82 -30 / -30 2336 / 2336 555 / 555 Physical Exam Oriented: Normal Eyes: Normal Ear: Normal Nose: Normal Throat: Normal Respiratory: Generalized and Diminished Cardiovascular: Normal Auscultation: Bowel Sounds: Normal Tenderness: Normal Skin: Normal Musculoskeletal: Normal Psychiatric: Normal Mood Description: Calm Affect: Normal Speech Pattern: Clear and Appropriate Laboratory and Diagnostics Result Diagrams: 09/07/20 04:00 09/07/20 04:00 Labs: 08/26/20 12:40 Blood Blood Culture - Final 08/26/20 11:40 Blood Blood Culture - Final Laboratory WBC 7.9 X10^3/uL (3.6-10.0) 09/07/20 04:00 RBC 3.49 X10^6/uL (4.7-6.0) L 09/07/20 04:00 Hgb 11.4 g/dL (13.5-18.0) L 09/07/20 04:00 Hct 32.9 % (42.0-54.0) L 09/07/20 04:00 MCV 94.4 fL (80.0-100.0) 09/07/20 04:00 MCH 32.8 pg (27.0-34.0) 09/07/20 04:00 MCHC 34.7 g/dL (33.0-35.0) 09/07/20 04:00 RDW 13.2 % (11.6-16.5) 09/07/20 04:00 Plt Count 152 X10^3/uL (150.0-450.0) 09/07/20 04:00 Plt Count Comment Adequate (ADEQUATE) 09/07/20 04:00 MPV 9.1 fL (7.4-11.0) 09/07/20 04:00 Neut % (Auto) 86.4 % (42.0-75.0) H 09/07/20 04:00 Lymph % (Auto) 6.3 % (21.0-51.0) L 09/07/20 04:00 [place] % (Auto) 7.0 % (0.0-13.0) 09/07/20 04:00 Eos % (Auto) 0.0 % (0.9-2.9) L 09/07/20 04:00 Baso % (Auto) 0.3 % (0.2-1.0) 09/07/20 04:00 Neut # (Auto) 6.9 x10^3/uL (2.2-4.8) H 09/07/20 04:00 Lymph # (Auto) 0.5 X10^3/uL (1.3-2.9) L 09/07/20 04:00 [place] # (Auto) 0.6 x10^3/uL (0.3-0.8) 09/07/20 04:00 Eos # (Auto) 0.0 x10^3/uL (0.0-0.2) 09/07/20 04:00 Baso # (Auto) 0.0 X10^3/uL (0.0-0.1) 09/07/20 04:00 Absolute Nucleated RBC 0.0 /100WBC 09/07/20 04:00 Total Counted 100 09/07/20 04:00 Neutrophils % (Manual) 82 % (39-76) H 09/07/20 04:00 Band Neutrophils % 2 % (0-10) 09/07/20 04:00 Lymphocytes % (Manual) 7 % (13-43) L 09/07/20 04:00 Monocytes % (Manual) 8 % (4-9) 09/07/20 04:00 Eosinophils % (Manual) 1 % (0-6) 09/07/20 04:00 Plt Morphology Comment Normal (NORMAL) 09/07/20 04:00 RBC Morphology Normal (NORMAL) 09/07/20 04:00 D-Dimer 0.34 ug/ml (0.0-0.57) 09/07/20 04:00 Sample Site Lr 09/07/20 05:00 ABG pH 7.520 (7.35-7.45) H 09/07/20 05:00 ABG pCO2 38.0 mmHg (35.0-45.0) 09/07/20 05:00 ABG pO2 62.0 mmHg (80.0-100.0) L 09/07/20 05:00 ABG HCO3 31.0 mmol/L (22-26) H* 09/07/20 05:00 ABG O2 Saturation 94.0 % (90-100) 09/07/20 05:00 ABG Base Excess 7.6 mmol/L (-2.0-2.0) H 09/07/20 05:00 Farzad Test Pos 09/07/20 05:00 A-a Gradient 176.0 mmHg 09/07/20 05:00 FiO2 40.0 09/07/20 05:00 Blood Gas Comments Ulises well sw 09/07/20 05:00 Sodium 138 mmol/L (136-145) 09/07/20 04:00 Corrected Sodium 142 mmol/L (136-145) 09/07/20 04:00 Potassium 3.7 mmol/L (3.5-5.1) 09/07/20 04:00 Chloride 102 mmol/L (98-107) 09/07/20 04:00 Carbon Dioxide 28.4 mmol/L (21-32) 09/07/20 04:00 BUN 34 mg/dL (7-18) H 09/07/20 04:00 Creatinine 1.08 mg/dL (0.70-1.30) 09/07/20 04:00 Est GFR (MDRD) Af Amer > 60 (>60) 09/07/20 04:00 Est GFR (MDRD) Non-Af > 60 (>60) 09/07/20 04:00 Glucose 285 mg/dL (65-99) H 09/07/20 04:00 POC Glucose (mg/dL) 410 mg/dL (65-99) H 09/06/20 20:31 Hemoglobin A1c 7.8 % 09/01/20 04:25 Lactic Acid 1.6 mmol/L (0.4-2.0) 08/26/20 11:40 Calcium 8.4 mg/dL (8.5-10.1) L 09/07/20 04:00 Corrected Calcium 9.4 mg/dL (8.5-10.1) 09/07/20 04:00 Magnesium 2.5 mg/dL (1.7-2.9) 09/06/20 04:06 Ferritin 509 ng/mL (26-388) H 09/07/20 04:00 Total Bilirubin 0.60 mg/dL (0.2-1.0) 09/07/20 04:00 AST 23 Units/L (15-37) 09/07/20 04:00 ALT 44 Units/L (12-78) 09/07/20 04:00 Alkaline Phosphatase 32 Units/L (46-116) L 09/07/20 04:00 Creatine Kinase 215 Units/L (39-308) 08/27/20 04:15 CK-MB (CK-2) < 1.0 ng/mL (0-4.0) 08/27/20 04:15 CK/CKMB % Calc 0.5 % (<4) 08/27/20 04:15 Troponin I < 0.02 ng/mL (0-1.5) 08/27/20 04:15 C-Reactive Protein 15.80 mg/L (0-3.0) H 09/07/20 04:00 B-Natriuretic Peptide 100 pg/mL (0-79) H 08/29/20 23:05 Total Protein 5.4 g/dL (6.4-8.2) L 09/07/20 04:00 Albumin 2.8 g/dL (3.4-5.0) L 09/07/20 04:00 Globulin 2.6 g/dL (2.5-4.5) 09/07/20 04:00 Albumin/Globulin Ratio 1.1 Ratio (1.1-2.1) 09/07/20 04:00 Influenza Type A (PCR) Negative (NEGATIVE) 08/27/20 13:15 Influenza Type B (PCR) Negative (NEGATIVE) 08/27/20 13:15 SARS CoV-2 RNA Rapid TONY Positive (NEGATIVE) A 08/26/20 15:50 Blood Type A POSITIVE 08/27/20 10:02 Plan (1) Acute respiratory failure with hypoxia: Status: Acute (2) Pneumonia due to COVID-19 virus: Status: Acute Plan: NORMAL SALINE AT KVO ML/HR, PROCALAMINE AT 40 ML/HR, ZOSYN 3.375G IV TID, SOLU-MEDROL 80MG IV Q8H, DUONEBS QID, PULMICORT NEBS BID, MUCINEX IN [facility] [place], DEXAMETHASONE IN [facility] [place], TUSSIONEX 5ML PO Q12H PRN, LOVENOX 100MG SC BID, ROBITUSSIN DM 10 ML PO QID, VSL #3 2 CAPS PO DAILY, TRICOR 160MG PO DAILY, ZINC SULFATE 220MG PO BID, A CLONIDINE PATCH, ZYRTEC 10MG PO DAILY, HYDRALAZINE 50MG PO BID, LISINOPRIL 40MG PO BID, AND LASIX 40MG IV Q12H, LEVEMIR 7UNITS SC BID. SUPPLEMENTAL OXYGEN (3) CHF (congestive heart failure): Status: Acute Qualifiers: Heart failure chronicity: unspecified Heart failure type: unspecified Qualified Code(s): I50.9 - Heart failure, unspecified (4) CAD (coronary artery disease): Status: Chronic Qualifiers: Associated angina: angina presence unspecified Coronary Disease- Associated Artery/Lesion type: [place] artery [place] vs. transplanted heart: [place] heart Qualified Code(s): I25.10 - Atherosclerotic heart disease of [place] coronary artery without angina pectoris (5) HTN (hypertension): Status: Chronic Qualifiers: Hypertension type: essential hypertension Qualified Code(s): I10 - Essential (primary) hypertension (6) Dyslipidemia: Status: Chronic (7) Diabetes: Status: Acute
[2020-09-07] MEDS: SNACK - Diabetic Appropriate PO SCH (20:34)
[2020-09-07] MEDS: LOVENOX INJ 30 MG SYR SC SCH (20:36)
[2020-09-07] MEDS: ZOCOR TAB 20 MG PO SCH (20:37)
[2020-09-08 05:32] LABS: BASOPHILS % (AUTO) 0.2 % (0.2-1.0); HEMATOCRIT 32.2 % (42.0-54.0); HEMOGLOBIN 10.9 g/dL (13.5-18.0); LYMPHOCYTES # (AUTO) 0.7 X10^3/uL (1.3-2.9); LYMPHOCYTES % (AUTO) 8.2 % (21.0-51.0); MEAN CORPUSCULAR HGB CONC 33.7 g/dL (33.0-35.0); MEAN CORPUSCULAR VOLUME 94.9 fL (80.0-100.0); MEAN PLATELET VOLUME 9.5 fL (7.4-11.0); MONOCYTES # (AUTO) 0.5 x10^3/uL (0.3-0.8); MONOCYTES % (AUTO) 6.9 % (0.0-13.0); NEUTROPHILS # (AUTO) 6.7 x10^3/uL (2.2-4.8); NEUTROPHILS % (AUTO) 84.7 % (42.0-75.0); PLATELET COUNT 126 X10^3/uL (150.0-450.0); RED BLOOD COUNT 3.39 X10^6/uL (4.7-6.0); WHITE BLOOD COUNT 7.9 X10^3/uL (3.6-10.0)
[2020-09-08] MEDS: SOLU-Medrol 40 MG VIAL IVP SCH (05:38)
[2020-09-08] MEDS: HumuLIN R SUBCUT PRN ×4 (05:39→20:57)
[2020-09-08 05:59] LABS: ALANINE AMINOTRANSFERASE 76 Units/L (12-78); ALBUMIN 2.8 g/dL (3.4-5.0); ALKALINE PHOSPHATASE 33 Units/L (46-116); ASPARTATE AMINO TRANSFERASE 38 Units/L (15-37); BLOOD UREA NITROGEN 35 mg/dL (7-18); CALCIUM 8.4 mg/dL (8.5-10.1); CARBON DIOXIDE 26.3 mmol/L (21-32); CHLORIDE 101 mmol/L (98-107); COR CA(FOR HYPOALB) 9.4 mg/dL (8.5-10.1); COR NA(FOR HYPERGLY) 141 mmol/L (136-145); CREATININE 0.99 mg/dL (0.70-1.30); SODIUM 136 mmol/L (136-145); TOTAL PROTEIN 5.3 g/dL (6.4-8.2); eGFR NON BLACK RACES > 60 (>60)
[2020-09-08 06:08] LABS: ABG ALLEN TEST POS; ABG HCO3 30.2 mmol/L (22-26)
[2020-09-08 06:42] LABS: PLATELET MORPHOLOGY COMMENT NORMAL (NORMAL)
[2020-09-08] MEDS: PULMICORT NEB TX 0.5 MG NEB SCH ×2 (09:06→20:20)
[2020-09-08] MEDS: DUONEB 0.5 MG/3 MG (3 mL) NEB SCH ×4 (09:06→20:20)
[2020-09-08] MEDS: DECADRON JET NEB (RESP USE) NEB SCH ×2 (09:06→20:20)
[2020-09-08] MEDS: ALBUMIN HUMAN 25%- 100 ML 100 ML IV SCH (09:17)
[2020-09-08] MEDS: LEVEMIR SC SCH ×2 (09:18→20:56)
[2020-09-08] MEDS: APRESOLINE TAB 25 MG PO SCH ×2 (09:18→20:56)
[2020-09-08] MEDS: ZyrTEC TAB 10 MG PO SCH (09:19)
[2020-09-08] MEDS: ZINC SULFATE PO SCH ×2 (09:19→20:57)
[2020-09-08] MEDS: TRICOR TAB 160 MG PO SCH (09:20)
[2020-09-08] MEDS: ZESTRIL TAB 40 MG PO SCH ×2 (09:20→20:56)
[2020-09-08] MEDS: VITAMIN D3 125 mcg (5,000 UNITS) PO SCH (09:20)
[2020-09-08] MEDS: LASIX IVP SCH ×2 (09:29→18:30)
[2020-09-08] MEDS: ROBITUSSIN DM PO SCH ×4 (09:30→20:57)
[2020-09-08] MEDS: VSL#3 PO SCH (09:30)
[2020-09-08] MEDS: LOVENOX INJ 30 MG SYR SC SCH ×2 (09:30→20:56)
[2020-09-08] MEDS: CATAPRES-TTS-2 TD SCH (10:37)
--- NOTE | 2020-09-08 12:13 | PCM.PROG ---
Progress Note Progress Note for Day of Date of Exam: 09/08/20 Subjective Subjective: Patient seen at bedside, no overnight events. He states he feels slightly better. He is being treated for acute respiratory failure due to COVID- 19 pneumonia. He is currently on 5L NC. He has minimal cough. Denies N/V/D. Denies fever or chills. Labs: Hgb 10.9 Plt 126 D-dimer (-) CTPE (-) for PE ABG 7.52/37/74/30.2 CXR: multifocal bilateral patchy opacities Patient has received 2 doses of convalescent plasma. He has also completed course of Remdesivir. Plan: Wean O2 as tolerated, keep sats > 90%. Continue solumedrol. Increase levemir to 20 units BID. Aggressive pulmonary toilet with IS, dexamethasone nebs, duonebs and pulmicort. Monitor AM labs, CXR and ABG. Time spent for clinical assessment, physical examination, reviewing labs/imaging , decision making and documentation more than 45 mins. Past Medical Family Social History Past Med/Fam/Surg Hx: No changes since H&P Allergies: Allergies No Known Drug Allergies Allergy (Verified 12/28/18 18:04) Review of Systems ROS: No change since H&P Vital Signs and I&O's Vital Signs: Temperature 98.6 F Pulse Rate 58 Respiratory Rate 21 Blood Pressure [Right Arm] 149/70 Blood Pressure [Left Arm] 168/92 Blood Pressure 166/78 O2 Sat by Pulse Oximetry 95 Intake and Output: Intake & Output 09/05/20 09/06/20 09/07/20 09/08/20 23:59 23:59 23:59 23:59 Intake Total 2870 / 2870 4311 / 4311 3867 / 3867 680 / 680 Output Total 2900 / 2900 1974 / 1974 3325 / 3325 600 / 600 Balance -30 / -30 2336 / 2336 542 / 542 80 / 80 Physical Exam Oriented: Normal Eyes: Normal Ear: Normal Nose: Normal Throat: Normal Respiratory: Generalized and Diminished Cardiovascular: Normal : Normal Auscultation: Bowel Sounds: Normal Tenderness: Normal Skin: Normal Musculoskeletal: Normal Psychiatric: Normal Mood Description: Calm Affect: Normal Speech Pattern: Clear and Appropriate Laboratory and Diagnostics Result Diagrams: 09/08/20 04:15 09/08/20 04:15 Labs: 08/26/20 12:40 Blood Blood Culture - Final 08/26/20 11:40 Blood Blood Culture - Final Laboratory WBC 7.9 X10^3/uL (3.6-10.0) 09/08/20 04:15 RBC 3.39 X10^6/uL (4.7-6.0) L 09/08/20 04:15 Hgb 10.9 g/dL (13.5-18.0) L 09/08/20 04:15 Hct 32.2 % (42.0-54.0) L 09/08/20 04:15 MCV 94.9 fL (80.0-100.0) 09/08/20 04:15 MCH 32.0 pg (27.0-34.0) 09/08/20 04:15 MCHC 33.7 g/dL (33.0-35.0) 09/08/20 04:15 RDW 13.0 % (11.6-16.5) 09/08/20 04:15 Plt Count 126 X10^3/uL (150.0-450.0) L 09/08/20 04:15 Plt Count Comment Decreased (ADEQUATE) 09/08/20 04:15 MPV 9.5 fL (7.4-11.0) 09/08/20 04:15 Neut % (Auto) 84.7 % (42.0-75.0) H 09/08/20 04:15 Lymph % (Auto) 8.2 % (21.0-51.0) L 09/08/20 04:15 [place] % (Auto) 6.9 % (0.0-13.0) 09/08/20 04:15 Eos % (Auto) 0.0 % (0.9-2.9) L 09/08/20 04:15 Baso % (Auto) 0.2 % (0.2-1.0) 09/08/20 04:15 Neut # (Auto) 6.7 x10^3/uL (2.2-4.8) H 09/08/20 04:15 Lymph # (Auto) 0.7 X10^3/uL (1.3-2.9) L 09/08/20 04:15 [place] # (Auto) 0.5 x10^3/uL (0.3-0.8) 09/08/20 04:15 Eos # (Auto) 0.0 x10^3/uL (0.0-0.2) 09/08/20 04:15 Baso # (Auto) 0.0 X10^3/uL (0.0-0.1) 09/08/20 04:15 Absolute Nucleated RBC 0.0 /100WBC 09/08/20 04:15 Total Counted 100 09/08/20 04:15 Neutrophils % (Manual) 88 % (39-76) H 09/08/20 04:15 Band Neutrophils % 2 % (0-10) 09/07/20 04:00 Lymphocytes % (Manual) 6 % (13-43) L 09/08/20 04:15 Monocytes % (Manual) 6 % (4-9) 09/08/20 04:15 Eosinophils % (Manual) 1 % (0-6) 09/07/20 04:00 Plt Morphology Comment Normal (NORMAL) 09/08/20 04:15 RBC Morphology Normal (NORMAL) 09/08/20 04:15 D-Dimer 0.34 ug/ml (0.0-0.57) 09/07/20 04:00 Sample Site Rrad 09/08/20 06:06 ABG pH 7.520 (7.35-7.45) H 09/08/20 06:06 ABG pCO2 37.0 mmHg (35.0-45.0) 09/08/20 06:06 ABG pO2 74.0 mmHg (80.0-100.0) L 09/08/20 06:06 ABG HCO3 30.2 mmol/L (22-26) H* 09/08/20 06:06 ABG O2 Saturation 96.0 % (90-100) 09/08/20 06:06 ABG Base Excess 7.0 mmol/L (-2.0-2.0) H 09/08/20 06:06 Farzad Test Pos 09/08/20 06:06 A-a Gradient 165.0 mmHg 09/08/20 06:06 FiO2 40.0 09/08/20 06:06 Blood Gas Comments Ulises abg well-mtf 09/08/20 06:06 Sodium 136 mmol/L (136-145) 09/08/20 04:15 Corrected Sodium 141 mmol/L (136-145) 09/08/20 04:15 Potassium 3.7 mmol/L (3.5-5.1) 09/08/20 04:15 Chloride 101 mmol/L (98-107) 09/08/20 04:15 Carbon Dioxide 26.3 mmol/L (21-32) 09/08/20 04:15 BUN 35 mg/dL (7-18) H 09/08/20 04:15 Creatinine 0.99 mg/dL (0.70-1.30) 09/08/20 04:15 Est GFR (MDRD) Af Amer > 60 (>60) 09/08/20 04:15 Est GFR (MDRD) Non-Af > 60 (>60) 09/08/20 04:15 Glucose 291 mg/dL (65-99) H 09/08/20 04:15 POC Glucose (mg/dL) 358 mg/dL (65-99) H 09/08/20 11:49 Hemoglobin A1c 7.8 % 09/01/20 04:25 Lactic Acid 1.6 mmol/L (0.4-2.0) 08/26/20 11:40 Calcium 8.4 mg/dL (8.5-10.1) L 09/08/20 04:15 Corrected Calcium 9.4 mg/dL (8.5-10.1) 09/08/20 04:15 Magnesium 2.5 mg/dL (1.7-2.9) 09/06/20 04:06 Ferritin 509 ng/mL (26-388) H 09/07/20 04:00 Total Bilirubin 0.50 mg/dL (0.2-1.0) 09/08/20 04:15 AST 38 Units/L (15-37) H 09/08/20 04:15 ALT 76 Units/L (12-78) 09/08/20 04:15 Alkaline Phosphatase 33 Units/L (46-116) L 09/08/20 04:15 Creatine Kinase 215 Units/L (39-308) 08/27/20 04:15 CK-MB (CK-2) < 1.0 ng/mL (0-4.0) 08/27/20 04:15 CK/CKMB % Calc 0.5 % (<4) 08/27/20 04:15 Troponin I < 0.02 ng/mL (0-1.5) 08/27/20 04:15 C-Reactive Protein 15.80 mg/L (0-3.0) H 09/07/20 04:00 B-Natriuretic Peptide 100 pg/mL (0-79) H 08/29/20 23:05 Total Protein 5.3 g/dL (6.4-8.2) L 09/08/20 04:15 Albumin 2.8 g/dL (3.4-5.0) L 09/08/20 04:15 Globulin 2.5 g/dL (2.5-4.5) 09/08/20 04:15 Albumin/Globulin Ratio 1.1 Ratio (1.1-2.1) 09/08/20 04:15 Influenza Type A (PCR) Negative (NEGATIVE) 08/27/20 13:15 Influenza Type B (PCR) Negative (NEGATIVE) 08/27/20 13:15 SARS CoV-2 RNA Rapid TONY Positive (NEGATIVE) A 08/26/20 15:50 Blood Type A POSITIVE 08/27/20 10:02 Plan (1) Acute respiratory failure with hypoxia: Status: Acute (2) Pneumonia due to COVID-19 virus: Status: Acute Plan: NORMAL SALINE AT KVO ML/HR, PROCALAMINE AT 40 ML/HR, ZOSYN 3.375G IV TID, SOLU-MEDROL 80MG IV Q8H, DUONEBS QID, PULMICORT NEBS BID, MUCINEX IN [place], DEXAMETHASONE IN [place], TUSSIONEX 5ML PO Q12H PRN, LOVENOX 100MG SC BID, ROBITUSSIN DM 10 ML PO QID, VSL #3 2 CAPS PO DAILY, TRICOR 160MG PO DAILY, ZINC SULFATE 220MG PO BID, A CLONIDINE PATCH, ZYRTEC 10MG PO DAILY, HYDRALAZINE 50MG PO BID, LISINOPRIL 40MG PO BID, AND LASIX 40MG IV Q12H, LEVEMIR 7UNITS SC BID. SUPPLEMENTAL OXYGEN (3) CHF (congestive heart failure): Status: Acute Qualifiers: Heart failure chronicity: unspecified Heart failure type: unspecified Qualified Code(s): I50.9 - Heart failure, unspecified (4) CAD (coronary artery disease): Status: Chronic Qualifiers: Associated angina: angina presence unspecified Coronary Disease- Associated Artery/Lesion type: [place] artery [place] vs. transplanted heart: [place] heart Qualified Code(s): I25.10 - Atherosclerotic heart disease of [place] coronary artery without angina pectoris (5) HTN (hypertension): Status: Chronic Qualifiers: Hypertension type: essential hypertension Qualified Code(s): I10 - [place] (primary) hypertension (6) Dyslipidemia: Status: Chronic (7) Diabetes: Status: Acute
[2020-09-08] MEDS: SOLU-Medrol 125 MG VIAL IVP SCH ×2 (15:00→20:59)
[2020-09-08] MEDS: SNACK - Diabetic Appropriate PO SCH (20:55)
[2020-09-08] MEDS: ZOCOR TAB 20 MG PO SCH (20:56)
[2020-09-09] MEDS ORDERED: NS 500 ML IV 500 ML IV PRN (01:10)
[2020-09-09] MEDS: PROCALAMINE 3 % 1,000 ML IV SCH (02:09)
[2020-09-09 05:30] LABS: BASOPHILS # (AUTO) 0.1 X10^3/uL (0.0-0.1); BASOPHILS % (AUTO) 1.7 % (0.2-1.0); EOSINOPHILS % (AUTO) 0.3 % (0.9-2.9); HEMATOCRIT 32.2 % (42.0-54.0); HEMOGLOBIN 11.2 g/dL (13.5-18.0); LYMPHOCYTES # (AUTO) 0.4 X10^3/uL (1.3-2.9); LYMPHOCYTES % (AUTO) 5.4 % (21.0-51.0); MEAN CORPUSCULAR HEMOGLOBIN 32.8 pg (27.0-34.0); MEAN CORPUSCULAR HGB CONC 34.7 g/dL (33.0-35.0); MEAN CORPUSCULAR VOLUME 94.5 fL (80.0-100.0); MEAN PLATELET VOLUME 8.9 fL (7.4-11.0); MONOCYTES # (AUTO) 0.4 x10^3/uL (0.3-0.8); MONOCYTES % (AUTO) 5.7 % (0.0-13.0); NEUTROPHILS # (AUTO) 6.7 x10^3/uL (2.2-4.8); NEUTROPHILS % (AUTO) 86.9 % (42.0-75.0); PLATELET COUNT 121 X10^3/uL (150.0-450.0); RED CELL DISTRIBUTION WIDTH 13.2 % (11.6-16.5); WHITE BLOOD COUNT 7.7 X10^3/uL (3.6-10.0)
[2020-09-09] MEDS: SOLU-Medrol 125 MG VIAL IVP SCH ×2 (05:42→20:51)
[2020-09-09] MEDS: HumuLIN R SUBCUT PRN ×5 (05:43→20:50)
[2020-09-09 05:47] LABS: BLOOD UREA NITROGEN 37 mg/dL (7-18); CALCIUM 8.7 mg/dL (8.5-10.1); CARBON DIOXIDE 26.8 mmol/L (21-32); CHLORIDE 102 mmol/L (98-107); COR NA(FOR HYPERGLY) 143 mmol/L (136-145); SODIUM 138 mmol/L (136-145); eGFR NON BLACK RACES > 60 (>60)
[2020-09-09 06:49] LABS: PLATELET MORPHOLOGY COMMENT NORMAL (NORMAL)
--- NOTE | 2020-09-09 09:13 | RAD ---
HISTORYcovid f/uSTUDYCHEST, 1 [id number] cardiomediastinal silhouette. Stable patchy bilateral multifocal pulmonary opacities and right neck soft tissue emphysema. No sizable effusion or visible pneumothorax. No acute osseous finding.IMPRESSIONNo significant interval change.Electronically signed by: Aaron Reid (Sep 09, 2020 09:11:36)
[2020-09-09] MEDS: PULMICORT NEB TX 0.5 MG NEB SCH ×2 (09:16→21:20)
[2020-09-09] MEDS: DECADRON JET NEB (RESP USE) NEB SCH ×2 (09:16→21:20)
[2020-09-09] MEDS: DUONEB 0.5 MG/3 MG (3 mL) NEB SCH ×4 (09:16→21:20)
[2020-09-09] MEDS: LEVEMIR SC SCH ×2 (09:37→20:48)
[2020-09-09] MEDS: ALBUMIN HUMAN 25%- 100 ML 100 ML IV SCH (09:38)
[2020-09-09] MEDS: ZyrTEC TAB 10 MG PO SCH (09:39)
[2020-09-09] MEDS: APRESOLINE TAB 25 MG PO SCH ×2 (09:39→20:49)
[2020-09-09] MEDS: ZESTRIL TAB 40 MG PO SCH ×2 (09:39→20:49)
[2020-09-09] MEDS: ZINC SULFATE PO SCH ×2 (09:40→20:49)
[2020-09-09] MEDS: TRICOR TAB 160 MG PO SCH (09:40)
[2020-09-09] MEDS: VSL#3 PO SCH (09:41)
[2020-09-09] MEDS: VITAMIN D3 125 mcg (5,000 UNITS) PO SCH (09:41)
[2020-09-09] MEDS: ROBITUSSIN DM PO SCH ×4 (09:41→20:50)
[2020-09-09] MEDS: LASIX IVP SCH ×2 (09:46→16:40)
[2020-09-09] MEDS: LOVENOX INJ 30 MG SYR SC SCH ×2 (09:47→20:48)
--- NOTE | 2020-09-09 12:08 | PCM.PROG ---
Progress Note Progress Note for Day of Date of Exam: 09/09/20 Subjective Subjective: Patient seen at bedside, no overnight events. Patient is sitting in the recliner on 4L NC. He states he feels better if he doesn't move around much. He does get short of breath with exertion. He states he feels like he wants to cough up sputum but it's been mostly dry cough. He has been afebrile. Labs: Hgb 11.2 Plt 121 D-dimer (-) CTPE (-) for PE CXR: stable patchy b/l infiltrates Patient has received 2 doses of convalescent plasma. He has also completed course of Remdesivir. Plan: Wean O2 as tolerated, keep sats > 90%. Continue solumedrol. Increase levemir to 25 units BID. Aggressive pulmonary toilet with IS, dexamethasone nebs, duonebs and pulmicort. Monitor AM labs, CXR and ABG. Time spent for clinical assessment, physical examination, reviewing labs/imaging , decision making and documentation more than 45 mins. Past Medical Family Social History Past Med/Fam/Surg Hx: No changes since H&P Allergies: Allergies No Known Drug Allergies Allergy (Verified 12/28/18 18:04) Review of Systems ROS: No change since H&P Vital Signs and I&O's Vital Signs: Temperature 98.6 F Pulse Rate 67 Respiratory Rate 29 Blood Pressure [Right Arm] 149/70 Blood Pressure [Left Arm] 168/92 Blood Pressure 146/84 O2 Sat by Pulse Oximetry 89 Intake and Output: Intake & Output 09/06/20 09/07/20 09/08/20 09/09/20 23:59 23:59 23:59 23:59 Intake Total 4311 / 4311 3867 / 3867 3210 / 3210 1090 / 1090 Output Total 1974 / 1974 3325 / 3325 3000 / 3000 450 / 450 Balance 2336 / 2336 542 / 542 210 / 210 640 / 640 Physical Exam Oriented: Normal Eyes: Normal Ear: Normal Nose: Normal Throat: Normal Respiratory: Generalized and Diminished Cardiovascular: Normal Auscultation: Bowel Sounds: Normal Tenderness: Normal Skin: Normal Musculoskeletal: Normal Psychiatric: Normal Mood Description: Calm Affect: Normal Speech Pattern: Clear and Appropriate Laboratory and Diagnostics Result Diagrams: 09/09/20 04:15 09/09/20 04:15 Labs: 08/26/20 12:40 Blood Blood Culture - Final 08/26/20 11:40 Blood Blood Culture - Final Laboratory WBC 7.7 X10^3/uL (3.6-10.0) 09/09/20 04:15 RBC 3.40 X10^6/uL (4.7-6.0) L 09/09/20 04:15 Hgb 11.2 g/dL (13.5-18.0) L 09/09/20 04:15 Hct 32.2 % (42.0-54.0) L 09/09/20 04:15 MCV 94.5 fL (80.0-100.0) 09/09/20 04:15 MCH 32.8 pg (27.0-34.0) 09/09/20 04:15 MCHC 34.7 g/dL (33.0-35.0) 09/09/20 04:15 RDW 13.2 % (11.6-16.5) 09/09/20 04:15 Plt Count 121 X10^3/uL (150.0-450.0) L 09/09/20 04:15 Plt Count Comment Decreased (ADEQUATE) 09/09/20 04:15 MPV 8.9 fL (7.4-11.0) 09/09/20 04:15 Neut % (Auto) 86.9 % (42.0-75.0) H 09/09/20 04:15 Lymph % (Auto) 5.4 % (21.0-51.0) L 09/09/20 04:15 [place] % (Auto) 5.7 % (0.0-13.0) 09/09/20 04:15 Eos % (Auto) 0.3 % (0.9-2.9) L 09/09/20 04:15 Baso % (Auto) 1.7 % (0.2-1.0) H 09/09/20 04:15 Neut # (Auto) 6.7 x10^3/uL (2.2-4.8) H 09/09/20 04:15 Lymph # (Auto) 0.4 X10^3/uL (1.3-2.9) L 09/09/20 04:15 [place] # (Auto) 0.4 x10^3/uL (0.3-0.8) 09/09/20 04:15 Eos # (Auto) 0.0 x10^3/uL (0.0-0.2) 09/09/20 04:15 Baso # (Auto) 0.1 X10^3/uL (0.0-0.1) 09/09/20 04:15 Absolute Nucleated RBC 0.1 /100WBC 09/09/20 04:15 Total Counted 100 09/09/20 04:15 Neutrophils % (Manual) 84 % (39-76) H 09/09/20 04:15 Band Neutrophils % 2 % (0-10) 09/07/20 04:00 Lymphocytes % (Manual) 12 % (13-43) L 09/09/20 04:15 Monocytes % (Manual) 4 % (4-9) 09/09/20 04:15 Eosinophils % (Manual) 1 % (0-6) 09/07/20 04:00 Plt Morphology Comment Normal (NORMAL) 09/09/20 04:15 RBC Morphology Normal (NORMAL) 09/09/20 04:15 D-Dimer 0.34 ug/ml (0.0-0.57) 09/07/20 04:00 Sample Site Rrad 09/08/20 06:06 ABG pH 7.520 (7.35-7.45) H 09/08/20 06:06 ABG pCO2 37.0 mmHg (35.0-45.0) 09/08/20 06:06 ABG pO2 74.0 mmHg (80.0-100.0) L 09/08/20 06:06 ABG HCO3 30.2 mmol/L (22-26) H* 09/08/20 06:06 ABG O2 Saturation 96.0 % (90-100) 09/08/20 06:06 ABG Base Excess 7.0 mmol/L (-2.0-2.0) H 09/08/20 06:06 Farzad Test Pos 09/08/20 06:06 A-a Gradient 165.0 mmHg 09/08/20 06:06 FiO2 40.0 09/08/20 06:06 Blood Gas Comments Ulises abg well-mtf 09/08/20 06:06 Sodium 138 mmol/L (136-145) 09/09/20 04:15 Corrected Sodium 143 mmol/L (136-145) 09/09/20 04:15 Potassium 3.8 mmol/L (3.5-5.1) 09/09/20 04:15 Chloride 102 mmol/L (98-107) 09/09/20 04:15 Carbon Dioxide 26.8 mmol/L (21-32) 09/09/20 04:15 BUN 37 mg/dL (7-18) H 09/09/20 04:15 Creatinine 1.00 mg/dL (0.70-1.30) 09/09/20 04:15 Est GFR (MDRD) Af Amer > 60 (>60) 09/09/20 04:15 Est GFR (MDRD) Non-Af > 60 (>60) 09/09/20 04:15 Glucose 297 mg/dL (65-99) H 09/09/20 04:15 POC Glucose (mg/dL) 280 mg/dL (65-99) H 09/09/20 05:13 Hemoglobin A1c 7.8 % 09/01/20 04:25 Lactic Acid 1.6 mmol/L (0.4-2.0) 08/26/20 11:40 Calcium 8.7 mg/dL (8.5-10.1) 09/09/20 04:15 Corrected Calcium 9.4 mg/dL (8.5-10.1) 09/08/20 04:15 Magnesium 2.5 mg/dL (1.7-2.9) 09/06/20 04:06 Ferritin 509 ng/mL (26-388) H 09/07/20 04:00 Total Bilirubin 0.50 mg/dL (0.2-1.0) 09/08/20 04:15 AST 38 Units/L (15-37) H 09/08/20 04:15 ALT 76 Units/L (12-78) 09/08/20 04:15 Alkaline Phosphatase 33 Units/L (46-116) L 09/08/20 04:15 Creatine Kinase 215 Units/L (39-308) 08/27/20 04:15 CK-MB (CK-2) < 1.0 ng/mL (0-4.0) 08/27/20 04:15 CK/CKMB % Calc 0.5 % (<4) 08/27/20 04:15 Troponin I < 0.02 ng/mL (0-1.5) 08/27/20 04:15 C-Reactive Protein 4.10 mg/L (0-3.0) H 09/09/20 04:15 B-Natriuretic Peptide 100 pg/mL (0-79) H 08/29/20 23:05 Total Protein 5.3 g/dL (6.4-8.2) L 09/08/20 04:15 Albumin 2.8 g/dL (3.4-5.0) L 09/08/20 04:15 Globulin 2.5 g/dL (2.5-4.5) 09/08/20 04:15 Albumin/Globulin Ratio 1.1 Ratio (1.1-2.1) 09/08/20 04:15 Influenza Type A (PCR) Negative (NEGATIVE) 08/27/20 13:15 Influenza Type B (PCR) Negative (NEGATIVE) 08/27/20 13:15 SARS CoV-2 RNA Rapid TONY Positive (NEGATIVE) A 08/26/20 15:50 Blood Type A POSITIVE 08/27/20 10:02 Plan (1) Acute respiratory failure with hypoxia: Status: Acute (2) Pneumonia due to COVID-19 virus: Status: Acute Plan: NORMAL SALINE AT KVO ML/HR, PROCALAMINE AT 40 ML/HR, ZOSYN 3.375G IV TID, SOLU-MEDROL 80MG IV Q8H, DUONEBS QID, PULMICORT NEBS BID, MUCINEX IN [facility] [place], DEXAMETHASONE IN [facility] [place], TUSSIONEX 5ML PO Q12H PRN, LOVENOX 100MG SC BID, ROBITUSSIN DM 10 ML PO QID, VSL #3 2 CAPS PO DAILY, TRICOR 160MG PO DAILY, ZINC SULFATE 220MG PO BID, A CLONIDINE PATCH, ZYRTEC 10MG PO DAILY, HYDRALAZINE 50MG PO BID, LISINOPRIL 40MG PO BID, AND LASIX 40MG IV Q12H, LEVEMIR 7UNITS SC BID. SUPPLEMENTAL OXYGEN (3) CHF (congestive heart failure): Status: Acute Qualifiers: Heart failure chronicity: unspecified Heart failure type: unspecified Qualified Code(s): I50.9 - Heart failure, unspecified (4) CAD (coronary artery disease): Status: Chronic Qualifiers: Associated angina: angina presence unspecified Coronary Disease- Associated Artery/Lesion type: [place] artery [place] vs. transplanted heart: [place] heart Qualified Code(s): I25.10 - Atherosclerotic heart disease of [place] coronary artery without angina pectoris (5) HTN (hypertension): Status: Chronic Qualifiers: Hypertension type: essential hypertension Qualified Code(s): I10 - Essential (primary) hypertension (6) Dyslipidemia: Status: Chronic (7) Diabetes: Status: Acute
--- NOTE | 2020-09-09 16:23 | PCM.PROG ---
Progress Note - Progress Note for Day of Date of Exam: 09/06/20 - Subjective Subjective: IS BEING TREATED FOR PNEUMONIA DUE TO COVID-19, CONGESTIVE HEART FAILURE, AND HYPOXIA. TODAY, HE IS ALERT AND ORIENTED, LYING IN BED ON MORNING ROUNDS. HE CONTINUES WITH COMPLAINTS OF COUGH, SHORTNESS OF BREATH, AND GENERALIZED WEAKNESS. HE IS CURRENTLY UTILIZING OXYGEN VIA NASAL CANNULA AT 5 LPM. HIS OXYGEN SATURATIONS HAVE BEEN 88-94% ON NASAL CANNULA. ON EXAMINATION, HEART IS REGULAR IN RATE AND RHYTHM. BILATERAL LUNGS ARE NOTED WITH FINE RALES THROUGHOUT. ABDOMEN IS ROUND, SOFT, AND NON-TENDER WITH NORMAL BOWEL SOUNDS NOTED IN ALL QUADRANTS. HIS VITALS THIS MORNING ARE: 98.0-68-24-93%-138/72. LABS WERE OBTAINED. ABNORMAL LAB VALUES INCLUDE THE FOLLOWING: RBC 3.76, HGB 12.1, HCT 35.5, BUN 39, GLUCOSE 283, FERRITIN 990, ALK PHOS 40, CRP 67.60, TOTAL PROTEIN 5.8, ALBUMIN 2.5. AN ABG WAS OBTAINED AND REVEALED: PH 7.520, PC02 36, P02 68, HC03 29.4, 02 SAT 95, BASE EXCESS 6.3, FI02 40.0. CHEST XRAY REVEALED: No significant change when compared to the prior examination. HE HAS RECEIVED TWO UNITS OF CONVALESCENT PLASMA SINCE ADMISSION AND HAS COMPLETED A COURSE OF REMDESIVIR. HE IS CURRENLY RECEIVING NORMAL SALINE AT KVO ML/HR, PROCALAMINE AT 40 ML/HR, ALBUMIN 25% IV DAILY, ZOSYN 3.375G IV TID, SOLU-MEDROL 80MG IV Q8H, DUONEBS QID, PULMICORT NEBS BID, MUCINEX IN [facility] [place], DEXAMETHASONE IN [facility] [place], TUSSIONEX 5ML PO Q12H PRN, LOVENOX 100MG SC BID, ROBITUSSIN DM 10 ML PO QID, VSL #3 2 CAPS PO DAILY, TRICOR 160MG PO DAILY, ZINC SULFATE 220MG PO BID, A CLONIDINE PATCH, ZYRTEC 10MG PO DAILY, HYDRALAZINE 50MG PO BID, LISINOPRIL 40MG PO BID, HUMULIN R SLIDING SCALE, LEVEMIR 7 UNITS SC BID, AND LASIX 40MG IV Q12H. WE WILL INCREASE LEVEMIR TO 12 UNITS SC BID TODAY DUE TO PERSISTENTLY ELEVATED BLOOD GLUCOSE LEVELS. OTHERWISE, WE WILL FOLLOW UP WITH AM LABS AND CONTINUE TO MONITOR. TIME SPENT ON CLINICAL ASSESSMENT, REVIEWING LABS AND IMAGING, DECISION MAKING, AND DOCUMENTATION GREATER THAN 45 MINUTES. - Past Medical Family Social History Past Med/Fam/Surg Hx: No changes since H&P Allergies: Allergies No Known Drug Allergies Allergy (Verified 12/28/18 18:04) - Review of Systems ROS: No change since H&P - Vital Signs and I&O's Vital Signs: Temperature 97.8 F Pulse Rate 60 Respiratory Rate 19 Blood Pressure [Right Arm] 149/70 Blood Pressure [Left Arm] 168/92 Blood Pressure 146/84 O2 Sat by Pulse Oximetry 97 Intake and Output: Intake & Output 09/07/20 09/08/20 09/09/20 09/10/20 11:59 11:59 11:59 11:59 Intake Total 3911 / 3911 3667 / 3667 3620 / 3620 2006 Output Total 1500 / 1500 3600 / 3600 2850 / 2850 1200 / 1200 Balance 2411 / 2411 770 / 770 807 / 807 - Physical Exam Oriented: Normal Eyes: Normal Ear: Normal Nose: Normal Throat: Normal Respiratory: Generalized, Diminished Cardiovascular: Normal : Normal Auscultation: Bowel Sounds: Normal Palpation: Normal Tenderness: Normal Skin: Normal Musculoskeletal: Normal Psychiatric: Normal Mood Description: Calm Affect: Normal Speech Pattern: Clear, Appropriate - Laboratory and Diagnostics Result Diagrams: 09/09/20 04:15 09/09/20 04:15 Labs: 08/26/20 12:40 Blood Blood Culture - Final 08/26/20 11:40 Blood Blood Culture - Final Laboratory WBC 7.7 X10^3/uL (3.6-10.0) 09/09/20 04:15 RBC 3.40 X10^6/uL (4.7-6.0) L 09/09/20 04:15 Hgb 11.2 g/dL (13.5-18.0) L 09/09/20 04:15 Hct 32.2 % (42.0-54.0) L 09/09/20 04:15 MCV 94.5 fL (80.0-100.0) 09/09/20 04:15 MCH 32.8 pg (27.0-34.0) 09/09/20 04:15 MCHC 34.7 g/dL (33.0-35.0) 09/09/20 04:15 RDW 13.2 % (11.6-16.5) 09/09/20 04:15 Plt Count 121 X10^3/uL (150.0-450.0) L 09/09/20 04:15 Plt Count Comment Decreased (ADEQUATE) 09/09/20 04:15 MPV 8.9 fL (7.4-11.0) 09/09/20 04:15 Neut % (Auto) 86.9 % (42.0-75.0) H 09/09/20 04:15 Lymph % (Auto) 5.4 % (21.0-51.0) L 09/09/20 04:15 [place] % (Auto) 5.7 % (0.0-13.0) 09/09/20 04:15 Eos % (Auto) 0.3 % (0.9-2.9) L 09/09/20 04:15 Baso % (Auto) 1.7 % (0.2-1.0) H 09/09/20 04:15 Neut # (Auto) 6.7 x10^3/uL (2.2-4.8) H 09/09/20 04:15 Lymph # (Auto) 0.4 X10^3/uL (1.3-2.9) L 09/09/20 04:15 [place] # (Auto) 0.4 x10^3/uL (0.3-0.8) 09/09/20 04:15 Eos # (Auto) 0.0 x10^3/uL (0.0-0.2) 09/09/20 04:15 Baso # (Auto) 0.1 X10^3/uL (0.0-0.1) 09/09/20 04:15 Absolute Nucleated RBC 0.1 /100WBC 09/09/20 04:15 Total Counted 100 09/09/20 04:15 Neutrophils % (Manual) 84 % (39-76) H 09/09/20 04:15 Band Neutrophils % 2 % (0-10) 09/07/20 04:00 Lymphocytes % (Manual) 12 % (13-43) L 09/09/20 04:15 Monocytes % (Manual) 4 % (4-9) 09/09/20 04:15 Eosinophils % (Manual) 1 % (0-6) 09/07/20 04:00 Plt Morphology Comment Normal (NORMAL) 09/09/20 04:15 RBC Morphology Normal (NORMAL) 09/09/20 04:15 D-Dimer 0.34 ug/ml (0.0-0.57) 09/07/20 04:00 Sample Site Rrad 09/08/20 06:06 ABG pH 7.520 (7.35-7.45) H 09/08/20 06:06 ABG pCO2 37.0 mmHg (35.0-45.0) 09/08/20 06:06 ABG pO2 74.0 mmHg (80.0-100.0) L 09/08/20 06:06 ABG HCO3 30.2 mmol/L (22-26) H* 09/08/20 06:06 ABG O2 Saturation 96.0 % (90-100) 09/08/20 06:06 ABG Base Excess 7.0 mmol/L (-2.0-2.0) H 09/08/20 06:06 Farzad Test Pos 09/08/20 06:06 A-a Gradient 165.0 mmHg 09/08/20 06:06 FiO2 40.0 09/08/20 06:06 Blood Gas Comments Ulises abg well-mtf 09/08/20 06:06 Sodium 138 mmol/L (136-145) 09/09/20 04:15 Corrected Sodium 143 mmol/L (136-145) 09/09/20 04:15 Potassium 3.8 mmol/L (3.5-5.1) 09/09/20 04:15 Chloride 102 mmol/L (98-107) 09/09/20 04:15 Carbon Dioxide 26.8 mmol/L (21-32) 09/09/20 04:15 BUN 37 mg/dL (7-18) H 09/09/20 04:15 Creatinine 1.00 mg/dL (0.70-1.30) 09/09/20 04:15 Est GFR (MDRD) Af Amer > 60 (>60) 09/09/20 04:15 Est GFR (MDRD) Non-Af > 60 (>60) 09/09/20 04:15 Glucose 297 mg/dL (65-99) H 09/09/20 04:15 POC Glucose (mg/dL) 280 mg/dL (65-99) H 09/09/20 12:32 Hemoglobin A1c 7.8 % 09/01/20 04:25 Lactic Acid 1.6 mmol/L (0.4-2.0) 08/26/20 11:40 Calcium 8.7 mg/dL (8.5-10.1) 09/09/20 04:15 Corrected Calcium 9.4 mg/dL (8.5-10.1) 09/08/20 04:15 Magnesium 2.5 mg/dL (1.7-2.9) 09/06/20 04:06 Ferritin 509 ng/mL (26-388) H 09/07/20 04:00 Total Bilirubin 0.50 mg/dL (0.2-1.0) 09/08/20 04:15 AST 38 Units/L (15-37) H 09/08/20 04:15 ALT 76 Units/L (12-78) 09/08/20 04:15 Alkaline Phosphatase 33 Units/L (46-116) L 09/08/20 04:15 Creatine Kinase 215 Units/L (39-308) 08/27/20 04:15 CK-MB (CK-2) < 1.0 ng/mL (0-4.0) 08/27/20 04:15 CK/CKMB % Calc 0.5 % (<4) 08/27/20 04:15 Troponin I < 0.02 ng/mL (0-1.5) 08/27/20 04:15 C-Reactive Protein 4.10 mg/L (0-3.0) H 09/09/20 04:15 B-Natriuretic Peptide 100 pg/mL (0-79) H 08/29/20 23:05 Total Protein 5.3 g/dL (6.4-8.2) L 09/08/20 04:15 Albumin 2.8 g/dL (3.4-5.0) L 09/08/20 04:15 Globulin 2.5 g/dL (2.5-4.5) 09/08/20 04:15 Albumin/Globulin Ratio 1.1 Ratio (1.1-2.1) 09/08/20 04:15 Influenza Type A (PCR) Negative (NEGATIVE) 08/27/20 13:15 Influenza Type B (PCR) Negative (NEGATIVE) 08/27/20 13:15 SARS CoV-2 RNA Rapid TONY Positive (NEGATIVE) A 08/26/20 15:50 Blood Type A POSITIVE 08/27/20 10:02 - Plan (1) Pneumonia due to COVID-19 virus Status: Acute Plan: NORMAL SALINE AT KVO ML/HR, PROCALAMINE AT 40 ML/HR, ZOSYN 3.375G IV TID, SOLU-MEDROL 80MG IV Q8H, DUONEBS QID, PULMICORT NEBS BID, MUCINEX IN [place], DEXAMETHASONE IN [place], TUSSIONEX 5ML PO Q12H PRN, LOVENOX 100MG SC BID, ROBITUSSIN DM 10 ML PO QID, VSL #3 2 CAPS PO DAILY, TRICOR 160MG PO DAILY, ZINC SULFATE 220MG PO BID, A CLONIDINE PATCH, ZYRTEC 10MG PO DAILY, HYDRALAZINE 50MG PO BID, LISINOPRIL 40MG PO BID, AND LASIX 40MG IV Q12H, LEVEMIR 7UNITS SC BID. SUPPLEMENTAL OXYGEN (2) CHF (congestive heart failure) Status: Acute Qualifiers: Heart failure type: unspecified Heart failure chronicity: unspecified Qualified Code(s): I50.9 - Heart failure, unspecified (3) Hypoxia Status: Acute (4) Respiratory distress Status: Acute (5) CAD (coronary artery disease) Status: Chronic Qualifiers: Coronary Disease-Associated Artery/Lesion type: [place] artery [place] vs. transplanted heart: [place] heart Associated angina: angina presence unspeci fied Qualified Code(s): I25.10 - Atherosclerotic heart disease of [place] coronary artery without angina pectoris (6) HTN (hypertension) Status: Chronic Qualifiers: Hypertension type: essential hypertension Qualified Code(s): I10 - Essential (primary) hypertension (7) Dyslipidemia Status: Chronic
[2020-09-09] MEDS: SNACK - Diabetic Appropriate PO SCH (20:47)
[2020-09-09] MEDS: ZOCOR TAB 20 MG PO SCH (20:49)
[2020-09-10 05:21] LABS: ABG BASE EXCESS 4.8 mmol/L (-2.0-2.0); ABG HCO3 28.1 mmol/L (22-26)
[2020-09-10 05:22] LABS: ABG ALLEN TEST POS
[2020-09-10] MEDS: HumuLIN R SUBCUT PRN ×4 (05:33→21:00)
[2020-09-10 06:11] LABS: BASOPHILS % (AUTO) 0.2 % (0.2-1.0); HEMATOCRIT 32.8 % (42.0-54.0); HEMOGLOBIN 11.3 g/dL (13.5-18.0); LYMPHOCYTES # (AUTO) 0.6 X10^3/uL (1.3-2.9); LYMPHOCYTES % (AUTO) 8.2 % (21.0-51.0); MEAN CORPUSCULAR HEMOGLOBIN 32.8 pg (27.0-34.0); MEAN CORPUSCULAR HGB CONC 34.3 g/dL (33.0-35.0); MEAN CORPUSCULAR VOLUME 95.5 fL (80.0-100.0); MEAN PLATELET VOLUME 8.9 fL (7.4-11.0); MONOCYTES # (AUTO) 0.4 x10^3/uL (0.3-0.8); MONOCYTES % (AUTO) 5.5 % (0.0-13.0); NEUTROPHILS # (AUTO) 6.7 x10^3/uL (2.2-4.8); NEUTROPHILS % (AUTO) 86.1 % (42.0-75.0); PLATELET COUNT 114 X10^3/uL (150.0-450.0); RED BLOOD COUNT 3.43 X10^6/uL (4.7-6.0); RED CELL DISTRIBUTION WIDTH 13.3 % (11.6-16.5); WHITE BLOOD COUNT 7.8 X10^3/uL (3.6-10.0)
[2020-09-10 06:33] LABS: BLOOD UREA NITROGEN 35 mg/dL (7-18); CALCIUM 8.9 mg/dL (8.5-10.1); CARBON DIOXIDE 26.3 mmol/L (21-32); CHLORIDE 102 mmol/L (98-107); COR NA(FOR HYPERGLY) 143 mmol/L (136-145); CREATININE 0.95 mg/dL (0.70-1.30); SODIUM 137 mmol/L (136-145); eGFR NON BLACK RACES > 60 (>60)
--- NOTE | 2020-09-10 06:53 | RAD ---
HISTORYSOBSTUDYCHEST, 1 VIEWCOMPARISONOne day prior.TECHNIQUEAP view of the chestFINDINGSCardiac silhouette is stably enlarged. Stable bilateral pulmonary infiltrates. Mediastinal contour appears normal. No large pleural effusion. No pneumothorax.IMPRESSIONNo significant change.Electronically signed by: Andrzej Galeana (Sep 10, 2020 06:52:41)
[2020-09-10 07:28] LABS: BAND NEUTROPHILS % 3 % (0-10); PLATELET MORPHOLOGY COMMENT NORMAL (NORMAL)
[2020-09-10] MEDS: ALBUMIN HUMAN 25%- 100 ML 100 ML IV SCH (09:08)
[2020-09-10] MEDS: APRESOLINE TAB 25 MG PO SCH ×2 (09:09→21:00)
[2020-09-10] MEDS: LEVEMIR SC SCH ×2 (09:10→21:00)
[2020-09-10] MEDS: LOVENOX INJ 30 MG SYR SC SCH ×2 (09:10→21:00)
[2020-09-10] MEDS: ZyrTEC TAB 10 MG PO SCH (09:11)
[2020-09-10] MEDS: VSL#3 PO SCH (09:11)
[2020-09-10] MEDS: ZESTRIL TAB 40 MG PO SCH ×2 (09:11→21:00)
[2020-09-10] MEDS: ZINC SULFATE PO SCH ×2 (09:11→21:00)
[2020-09-10] MEDS: VITAMIN D3 125 mcg (5,000 UNITS) PO SCH (09:12)
[2020-09-10] MEDS: ROBITUSSIN DM PO SCH ×4 (09:12→21:00)
[2020-09-10] MEDS: TRICOR TAB 160 MG PO SCH (09:12)
[2020-09-10] MEDS: LASIX IVP SCH ×2 (09:18→17:50)
[2020-09-10] MEDS: SOLU-Medrol 125 MG VIAL IVP SCH ×2 (09:42→21:00)
[2020-09-10] MEDS: PULMICORT NEB TX 0.5 MG NEB SCH ×2 (09:45→21:25)
[2020-09-10] MEDS: DUONEB 0.5 MG/3 MG (3 mL) NEB SCH ×4 (09:45→21:25)
[2020-09-10] MEDS: DECADRON JET NEB (RESP USE) NEB SCH ×2 (09:45→21:25)
--- NOTE | 2020-09-10 11:17 | PCM.PROG ---
Progress Note - Progress Note for Day of Date of Exam: 09/10/20 - Subjective Subjective: IS BEING TREATED FOR PNEUMONIA DUE TO COVID-19, CONGESTIVE HEART FAILURE, AND HYPOXIA. TODAY, HE IS ALERT AND ORIENTED, LYING IN BED ON MORNING ROUNDS. HE CONTINUES WITH COMPLAINTS OF SHORTNESS OF BREATH ON EXERTION AND WEAKNESS. COUGH CONTINUES TO BE NON-PRODUCTIVE. HE IS CURRENTLY UTILIZING OXYGEN VIA NASAL CANNULA AT 4 LPM. HIS OXYGEN SATURATIONS HAVE BEEN 92-96% ON NASAL CANNULA. ON EXAMINATION, HEART IS REGULAR IN RATE AND RHYTHM. BILATERAL LUNGS ARE NOTED WITH FINE RALES THROUGHOUT. ABDOMEN IS ROUND, SOFT, AND NON- TENDER WITH NORMAL BOWEL SOUNDS NOTED IN ALL QUADRANTS. HIS VITALS THIS MORNING ARE: 98.1-65-27-92%-176/82. LABS WERE OBTAINED. ABNORMAL LAB VALUES INCLUDE THE FOLLOWING: RBC 3.43, HGB 11.3, HCT 32.8, PLT COUNT 114, BUN 35, GLUCOSE 339. AN ABG WAS OBTAINED AND REVEALED: PH 7.500, PC02 36, P02 93, HC03 28.1, 02 SAT 98, BASE EXCESS 4.8, FI02 40. CHEST XRAY REVEALED: Cardiac silhouette is stably enlarged. Stable bilateral pulmonary infiltrates. Mediastinal contour appears normal. No large pleural effusion. No pneumothorax. HE HAS RECEIVED TWO UNITS OF CONVALESCENT PLASMA SINCE ADMISSION AND HAS COMPLETED A COURSE OF REMDESIVIR. HE IS CURRENLY RECEIVING NORMAL SALINE AT KVO ML/HR, PROCALAMINE AT 40 ML/HR, ALBUMIN 25% IV DAILY, ZOSYN 3.375G IV TID, SOLU-MEDROL 60MG IV Q12H, DUONEBS QID, PULMICORT NEBS BID, MUCINEX IN [facility] [place], DEXAMETHASONE IN [facility] [place], TUSSIONEX 5ML PO Q12H PRN, LOVENOX 100MG SC BID, ROBITUSSIN DM 10 ML PO QID, VSL #3 2 CAPS PO DAILY, TRICOR 160MG PO DAILY, ZINC SULFATE 220MG PO BID, A CLONIDINE PATCH, ZYRTEC 10MG PO DAILY, HYDRALAZINE 50MG PO BID, LISINOPRIL 40MG PO BID, HUMULIN R SLIDING SCALE, LEVEMIR 25 UNITS SC BID, LASIX 40MG IV Q12H, AND THE POTASSIUM AND MAGNESIUM PROTOCOLS. WE WILL CONTINUE WITH CURRENT PLAN OF CARE TODAY. OTHERWISE, WE WILL FOLLOW UP WITH AM LABS AND CONTINUE TO MONITOR. TIME SPENT ON CLINICAL ASSESSMENT, REVIEWING LABS AND IMAGING, DECISION MAKING, AND DOCUMENTATION GREATER THAN 45 MINUTES. - Past Medical Family Social History Past Med/Fam/Surg Hx: No changes since H&P Allergies: Allergies No Known Drug Allergies Allergy (Verified 12/28/18 18:04) - Review of Systems ROS: No change since H&P - Vital Signs and I&O's Vital Signs: Temperature 97.8 F Pulse Rate 65 Respiratory Rate 27 Blood Pressure [Right Arm] 149/70 Blood Pressure [Left Arm] 168/92 Blood Pressure 166/88 O2 Sat by Pulse Oximetry 91 Intake and Output: Intake & Output 09/07/20 09/08/20 09/09/20 09/10/20 11:59 11:59 11:59 11:59 Intake Total 3911 / 3911 3667 / 3667 3620 / 3620 3737 / 3737 Output Total 1500 / 1500 3600 / 3600 2850 / 2850 3150 / 3150 Balance 2411 / 2411 67 / 67 770 / 770 587 / 587 - Physical Exam Oriented: Normal Eyes: Normal Ear: Normal Nose: Normal Throat: Normal Respiratory: Generalized, Diminished Cardiovascular: Normal : Normal Auscultation: Bowel Sounds: Normal Palpation: Normal Tenderness: Normal Skin: Normal Musculoskeletal: Normal Psychiatric: Normal Mood Description: Calm Affect: Normal Speech Pattern: Clear, Appropriate - Laboratory and Diagnostics Result Diagrams: 09/10/20 04:40 09/10/20 04:40 Labs: 08/26/20 12:40 Blood Blood Culture - Final 08/26/20 11:40 Blood Blood Culture - Final Laboratory WBC 7.8 X10^3/uL (3.6-10.0) 09/10/20 04:40 RBC 3.43 X10^6/uL (4.7-6.0) L 09/10/20 04:40 Hgb 11.3 g/dL (13.5-18.0) L 09/10/20 04:40 Hct 32.8 % (42.0-54.0) L 09/10/20 04:40 MCV 95.5 fL (80.0-100.0) 09/10/20 04:40 MCH 32.8 pg (27.0-34.0) 09/10/20 04:40 MCHC 34.3 g/dL (33.0-35.0) 09/10/20 04:40 RDW 13.3 % (11.6-16.5) 09/10/20 04:40 Plt Count 114 X10^3/uL (150.0-450.0) L 09/10/20 04:40 Plt Count Comment Decreased (ADEQUATE) 09/10/20 04:40 MPV 8.9 fL (7.4-11.0) 09/10/20 04:40 Neut % (Auto) 86.1 % (42.0-75.0) H 09/10/20 04:40 Lymph % (Auto) 8.2 % (21.0-51.0) L 09/10/20 04:40 [place] % (Auto) 5.5 % (0.0-13.0) 09/10/20 04:40 Eos % (Auto) 0.0 % (0.9-2.9) L 09/10/20 04:40 Baso % (Auto) 0.2 % (0.2-1.0) 09/10/20 04:40 Neut # (Auto) 6.7 x10^3/uL (2.2-4.8) H 09/10/20 04:40 Lymph # (Auto) 0.6 X10^3/uL (1.3-2.9) L 09/10/20 04:40 [place] # (Auto) 0.4 x10^3/uL (0.3-0.8) 09/10/20 04:40 Eos # (Auto) 0.0 x10^3/uL (0.0-0.2) 09/10/20 04:40 Baso # (Auto) 0.0 X10^3/uL (0.0-0.1) 09/10/20 04:40 Absolute Nucleated RBC 0.0 /100WBC 09/10/20 04:40 Total Counted 100 09/10/20 04:40 Neutrophils % (Manual) 88 % (39-76) H 09/10/20 04:40 Band Neutrophils % 3 % (0-10) 09/10/20 04:40 Lymphocytes % (Manual) 7 % (13-43) L 09/10/20 04:40 Monocytes % (Manual) 2 % (4-9) L 09/10/20 04:40 Eosinophils % (Manual) 1 % (0-6) 09/07/20 04:00 Plt Morphology Comment Normal (NORMAL) 09/10/20 04:40 RBC Morphology Normal (NORMAL) 09/10/20 04:40 D-Dimer 0.34 ug/ml (0.0-0.57) 09/07/20 04:00 Sample Site Rrad 09/10/20 05:20 ABG pH 7.500 (7.35-7.45) H 09/10/20 05:20 ABG pCO2 36.0 mmHg (35.0-45.0) 09/10/20 05:20 ABG pO2 93.0 mmHg (80.0-100.0) 09/10/20 05:20 ABG HCO3 28.1 mmol/L (22-26) H 09/10/20 05:20 ABG O2 Saturation 98.0 % (90-100) 09/10/20 05:20 ABG Base Excess 4.8 mmol/L (-2.0-2.0) H 09/10/20 05:20 Farzad Test Pos 09/10/20 05:20 A-a Gradient 147.0 mmHg 09/10/20 05:20 FiO2 40.0 09/10/20 05:20 Blood Gas Comments Ulises abg well-mtf 09/10/20 05:20 Sodium 137 mmol/L (136-145) 09/10/20 04:40 Corrected Sodium 143 mmol/L (136-145) 09/10/20 04:40 Potassium 4.2 mmol/L (3.5-5.1) 09/10/20 04:40 Chloride 102 mmol/L (98-107) 09/10/20 04:40 Carbon Dioxide 26.3 mmol/L (21-32) 09/10/20 04:40 BUN 35 mg/dL (7-18) H 09/10/20 04:40 Creatinine 0.95 mg/dL (0.70-1.30) 09/10/20 04:40 Est GFR (MDRD) Af Amer > 60 (>60) 09/10/20 04:40 Est GFR (MDRD) Non-Af > 60 (>60) 09/10/20 04:40 Glucose 339 mg/dL (65-99) H 09/10/20 04:40 POC Glucose (mg/dL) 340 mg/dL (65-99) H 09/10/20 05:17 Hemoglobin A1c 7.8 % 09/01/20 04:25 Lactic Acid 1.6 mmol/L (0.4-2.0) 08/26/20 11:40 Calcium 8.9 mg/dL (8.5-10.1) 09/10/20 04:40 Corrected Calcium 9.4 mg/dL (8.5-10.1) 09/08/20 04:15 Magnesium 2.5 mg/dL (1.7-2.9) 09/06/20 04:06 Ferritin 509 ng/mL (26-388) H 09/07/20 04:00 Total Bilirubin 0.50 mg/dL (0.2-1.0) 09/08/20 04:15 AST 38 Units/L (15-37) H 09/08/20 04:15 ALT 76 Units/L (12-78) 09/08/20 04:15 Alkaline Phosphatase 33 Units/L (46-116) L 09/08/20 04:15 Creatine Kinase 215 Units/L (39-308) 08/27/20 04:15 CK-MB (CK-2) < 1.0 ng/mL (0-4.0) 08/27/20 04:15 CK/CKMB % Calc 0.5 % (<4) 08/27/20 04:15 Troponin I < 0.02 ng/mL (0-1.5) 08/27/20 04:15 C-Reactive Protein 1.80 mg/L (0-3.0) 09/10/20 04:40 B-Natriuretic Peptide 100 pg/mL (0-79) H 08/29/20 23:05 Total Protein 5.3 g/dL (6.4-8.2) L 09/08/20 04:15 Albumin 2.8 g/dL (3.4-5.0) L 09/08/20 04:15 Globulin 2.5 g/dL (2.5-4.5) 09/08/20 04:15 Albumin/Globulin Ratio 1.1 Ratio (1.1-2.1) 09/08/20 04:15 Influenza Type A (PCR) Negative (NEGATIVE) 08/27/20 13:15 Influenza Type B (PCR) Negative (NEGATIVE) 08/27/20 13:15 SARS CoV-2 RNA Rapid TONY Positive (NEGATIVE) A 08/26/20 15:50 Blood Type A POSITIVE 08/27/20 10:02 - Plan (1) Pneumonia due to COVID-19 virus Status: Acute Plan: NORMAL SALINE AT KVO ML/HR, PROCALAMINE AT 40 ML/HR, ZOSYN 3.375G IV TID, SOLU-MEDROL 80MG IV Q8H, DUONEBS QID, PULMICORT NEBS BID, MUCINEX IN [place], DEXAMETHASONE IN [place], TUSSION[place] 5ML PO Q12H PRN, LOVENOX 100MG SC BID, ROBITU SSIN DM 10 ML PO QID, VSL #3 2 CAPS PO DAILY, TRICOR 160MG PO DAILY, ZINC SULFATE 220MG PO BID, A CLONIDINE PATCH, ZYRTEC 10MG PO DAILY, HYDRALAZINE 50MG PO BID, LISINOPRIL 40MG PO BID, AND LASIX 40MG IV Q12H, LEVEMIR 7UNITS SC BID. SUPPLEMENTAL OXYGEN (2) CHF (congestive heart failure) Status: Acute Qualifiers: Heart failure type: unspecified Heart failure chronicity: unspecified Qualified Code(s): I50.9 - Heart failure, unspecified (3) Hypoxia Status: Acute (4) Respiratory distress Status: Acute (5) CAD (coronary artery disease) Status: Chronic Qualifiers: Coronary Disease-Associated Artery/Lesion type: [place] artery [place] vs. transplanted heart: [place] heart Associated angina: angina presence unspecified Qualified Code(s): I25.10 - Atherosclerotic heart disease of [place] coronary artery without angina pectoris (6) HTN (hypertension) Status: Chronic Qualifiers: Hypertension type: essential hypertension Qualified Code(s): I10 - Essential (primary) hypertension (7) Dyslipidemia Status: Chronic
[2020-09-10] MEDS: ZOCOR TAB 20 MG PO SCH (21:00)
[2020-09-10] MEDS: SNACK - Diabetic Appropriate PO SCH (21:00)
[2020-09-11 05:36] LABS: BASOPHILS % (AUTO) 0.2 % (0.2-1.0); HEMATOCRIT 32.2 % (42.0-54.0); LYMPHOCYTES # (AUTO) 0.7 X10^3/uL (1.3-2.9); MEAN CORPUSCULAR HEMOGLOBIN 32.5 pg (27.0-34.0); MEAN CORPUSCULAR HGB CONC 34.3 g/dL (33.0-35.0); MEAN CORPUSCULAR VOLUME 94.7 fL (80.0-100.0); MEAN PLATELET VOLUME 8.7 fL (7.4-11.0); MONOCYTES # (AUTO) 0.4 x10^3/uL (0.3-0.8); MONOCYTES % (AUTO) 5.4 % (0.0-13.0); NEUTROPHILS % (AUTO) 85.4 % (42.0-75.0); PLATELET COUNT 114 X10^3/uL (150.0-450.0); RED CELL DISTRIBUTION WIDTH 13.5 % (11.6-16.5); WHITE BLOOD COUNT 8.2 X10^3/uL (3.6-10.0)
[2020-09-11 05:52] LABS: ALANINE AMINOTRANSFERASE 85 Units/L (12-78); ALBUMIN 3.2 g/dL (3.4-5.0); ALKALINE PHOSPHATASE 31 Units/L (46-116); ASPARTATE AMINO TRANSFERASE 22 Units/L (15-37); BLOOD UREA NITROGEN 30 mg/dL (7-18); CALCIUM 8.9 mg/dL (8.5-10.1); CARBON DIOXIDE 25.1 mmol/L (21-32); CHLORIDE 99 mmol/L (98-107); COR CA(FOR HYPOALB) 9.5 mg/dL (8.5-10.1); COR NA(FOR HYPERGLY) 138 mmol/L (136-145); CREATININE 0.92 mg/dL (0.70-1.30); SODIUM 133 mmol/L (136-145); TOTAL PROTEIN 5.5 g/dL (6.4-8.2); eGFR NON BLACK RACES > 60 (>60)
[2020-09-11 05:58] LABS: ABG BASE EXCESS 6.4 mmol/L (-2.0-2.0); ABG HCO3 29.2 mmol/L (22-26)
[2020-09-11 05:59] LABS: ABG ALLEN TEST POS
[2020-09-11] MEDS: HumuLIN R SUBCUT PRN ×2 (06:22→17:44)
[2020-09-11 07:14] LABS: PLATELET MORPHOLOGY COMMENT NORMAL (NORMAL)
--- NOTE | 2020-09-11 07:39 | RAD ---
HISTORYShortness of breathSTUDYChest AP [id number]/2020FINDINGSThe heart is enlarged. No congestive heart failure is noted. Bilateral infiltrates are unchanged. No pleural effusions are identified. Bony thorax is unremarkable.IMPRE SSIONNo change cardiomegaly without congestive heart failureNo change bilateral infiltratesElectronically signed by: BRAXTON SHANKAR (Sep 11, 2020 07:36:22)
[2020-09-11] MEDS: PULMICORT NEB TX 0.5 MG NEB SCH ×2 (10:05→20:47)
[2020-09-11] MEDS: DUONEB 0.5 MG/3 MG (3 mL) NEB SCH ×4 (10:05→20:47)
[2020-09-11] MEDS: DECADRON JET NEB (RESP USE) NEB SCH ×2 (10:05→20:47)
[2020-09-11] MEDS: ALBUMIN HUMAN 25%- 100 ML 100 ML IV SCH (10:47)
[2020-09-11] MEDS: ZINC SULFATE PO SCH ×2 (10:48→21:40)
[2020-09-11] MEDS: ZyrTEC TAB 10 MG PO SCH (10:48)
[2020-09-11] MEDS: VITAMIN D3 125 mcg (5,000 UNITS) PO SCH (10:49)
[2020-09-11] MEDS: ZESTRIL TAB 40 MG PO SCH ×2 (10:49→21:41)
[2020-09-11] MEDS: VSL#3 PO SCH (10:49)
[2020-09-11] MEDS: TRICOR TAB 160 MG PO SCH (10:49)
[2020-09-11] MEDS: LOVENOX INJ 30 MG SYR SC SCH ×2 (10:50→21:39)
[2020-09-11] MEDS: ROBITUSSIN DM PO SCH ×4 (10:50→21:40)
[2020-09-11] MEDS: LEVEMIR SC SCH ×2 (10:50→21:40)
[2020-09-11] MEDS: LASIX IVP SCH ×2 (10:51→16:36)
[2020-09-11] MEDS: APRESOLINE TAB 25 MG PO SCH ×2 (10:51→21:40)
[2020-09-11] MEDS: SOLU-Medrol 125 MG VIAL IVP SCH ×2 (10:51→21:41)
[2020-09-11] MEDS: SNACK - Diabetic Appropriate PO SCH (21:39)
[2020-09-11] MEDS: ZOCOR TAB 20 MG PO SCH (21:41)
[2020-09-12 06:11] LABS: BASOPHILS % (AUTO) 0.2 % (0.2-1.0); EOSINOPHILS % (AUTO) 0.1 % (0.9-2.9); HEMOGLOBIN 11.1 g/dL (13.5-18.0); LYMPHOCYTES # (AUTO) 0.8 X10^3/uL (1.3-2.9); LYMPHOCYTES % (AUTO) 9.4 % (21.0-51.0); MEAN CORPUSCULAR HEMOGLOBIN 32.2 pg (27.0-34.0); MEAN CORPUSCULAR HGB CONC 33.7 g/dL (33.0-35.0); MEAN CORPUSCULAR VOLUME 95.6 fL (80.0-100.0); MEAN PLATELET VOLUME 8.6 fL (7.4-11.0); MONOCYTES # (AUTO) 0.4 x10^3/uL (0.3-0.8); MONOCYTES % (AUTO) 4.9 % (0.0-13.0); NEUTROPHILS % (AUTO) 85.4 % (42.0-75.0); PLATELET COUNT 125 X10^3/uL (150.0-450.0); RED BLOOD COUNT 3.45 X10^6/uL (4.7-6.0); RED CELL DISTRIBUTION WIDTH 13.8 % (11.6-16.5); WHITE BLOOD COUNT 8.2 X10^3/uL (3.6-10.0)
[2020-09-12 06:19] LABS: ABG BASE EXCESS 7.8 mmol/L (-2.0-2.0)
[2020-09-12 06:20] LABS: ABG ALLEN TEST POS; ABG HCO3 30.9 mmol/L (22-26)
[2020-09-12 06:30] LABS: ALANINE AMINOTRANSFERASE 89 Units/L (12-78); ALBUMIN 3.4 g/dL (3.4-5.0); ALKALINE PHOSPHATASE 29 Units/L (46-116); ASPARTATE AMINO TRANSFERASE 18 Units/L (15-37); BLOOD UREA NITROGEN 34 mg/dL (7-18); CHLORIDE 100 mmol/L (98-107); COR NA(FOR HYPERGLY) 138 mmol/L (136-145); CREATININE 0.93 mg/dL (0.70-1.30); SODIUM 135 mmol/L (136-145); TOTAL PROTEIN 5.7 g/dL (6.4-8.2); eGFR NON BLACK RACES > 60 (>60)
--- NOTE | 2020-09-12 06:32 | RAD ---
HISTORYSOBSTUDYCHEST, 1 [id number]/29/2020FINDINGSThe trachea is midline. The cardiac silhouette is mildly enlarged. . Bibasilar infiltrates unchanged.. The bony thorax is unremarkable. Subcutaneous emphysema now present in the right supraclavicular/base of the neck.IMPRESSIONBibasilar infiltrates unchanged.Subcutaneous emphysema now present in the right supraclavicular/base of the neck region.Electronically signed by: Martinez Roach (Sep 12, 2020 06:30:39)
[2020-09-12 07:13] VITALS: BP 132/62
[2020-09-12 07:51] LABS: PLATELET MORPHOLOGY COMMENT NORMAL (NORMAL)
[2020-09-12] MEDS: ALBUMIN HUMAN 25%- 100 ML 100 ML IV SCH (08:35)
[2020-09-12] MEDS: APRESOLINE TAB 25 MG PO SCH (08:36)
[2020-09-12] MEDS: ZINC SULFATE PO SCH (08:37)
[2020-09-12] MEDS: ZESTRIL TAB 40 MG PO SCH (08:37)
[2020-09-12] MEDS: VITAMIN D3 125 mcg (5,000 UNITS) PO SCH (08:37)
[2020-09-12] MEDS: TRICOR TAB 160 MG PO SCH (08:37)
[2020-09-12] MEDS: ZyrTEC TAB 10 MG PO SCH (08:38)
[2020-09-12] MEDS: ROBITUSSIN DM PO SCH (08:38)
[2020-09-12] MEDS: LOVENOX INJ 30 MG SYR SC SCH (08:39)
[2020-09-12] MEDS: LEVEMIR SC SCH (08:47)
[2020-09-12] MEDS: PULMICORT NEB TX 0.5 MG NEB SCH (09:35)
[2020-09-12] MEDS: DUONEB 0.5 MG/3 MG (3 mL) NEB SCH (09:35)
[2020-09-12] MEDS: DECADRON JET NEB (RESP USE) NEB SCH (09:35)
[2020-09-12] MEDS: VSL#3 PO SCH (09:54)
[2020-09-12] MEDS: LASIX IVP SCH (09:54)
[2020-09-12] MEDS: SOLU-Medrol 125 MG VIAL IVP SCH (10:09)
== END 2020-09-12 12:15 | disposition home health service (06) | DRG 177 ==
LOC: ER 11:28 → ICU 15:27 → MED/SURG 09-11 16:58
PROVIDERS: ADMIT Family Medicine; ATTEND Internal Medicine
DX: E78.2 Mixed hyperlipidemia; E11.65 Type 2 diabetes mellitus with hyperglycemia; R79.89 Other specified abnormal findings of blood chemistry; R53.1 Weakness; U07.1 COVID-19; I10 Essential (primary) hypertension; R26.89 Other abnormalities of gait and mobility; R79.82 Elevated C-reactive protein (CRP); J12.89 Other viral pneumonia; J96.01 Acute respiratory failure with hypoxia; I50.9 Heart failure, unspecified; I25.10 Atherosclerotic heart disease of native coronary artery without angina pectoris